=== PATIENT | female | born 1990 | race Caucasian/White ===

== ENCOUNTER → 2016-03-25 | Outpatient (CLI) | payer OTHER ==
[~2016-03-25] MED LIST: ALBU1AER9 INH; ASC400; BSP/10 PO; CALC250T8 PO; CERT200K INJ; CLC100X PO; CLIN1SOL23; CLON0.5T3 PO; CLON1TAB3 PO; DICY20TA10 PO; DIPH-416 PO; DOXY25TA; EFFSR75 PO; ELET40TA PO; FEXO1TAB46 PO; FOLIC ACID; HYDR200T5 PO; L-ME1CAP PO; LEVE250T PO; MELO15TA4 PO; MESA1CAP2 PO; MRLP17; MTHI100 SC; MULT-260 PO; OMEP40CA41 PO; ONDA4TAB4 PO; OXCA150T2 PO; PLMINSR25 INH; PRD/25 PO; PRENTAB26 PO; PROP160C PO; PTDOPS OP; PYRI1TAB30; RWSE PR; SNG10 PO; VALA1TAB31 PO; VENL150C56 PO
[2016-03-25 14:45] LABS: URINE APPEARANCE CLEAR (CLEAR); URINE BILIRUBIN NEG (NEG); URINE COLOR YELLOW; URINE NITRITE NEG (NEG); URINE SPECIFIC GRAVITY 1.003 (1.000-1.030); UROBILINOGEN NEG (NEG)
[2016-03-25 14:48] LABS: MANUAL MICROSCOPIC REQUIRED? NO; REVIEW REQ? NO
== END | disposition home or self-care (01) ==
LOC: C.LABSPEC 14:31
PROVIDERS: ATTEND Obstetrics & Gynecology
DX: R30.0 Dysuria (principal); O23.91 Unspecified genitourinary tract infection in pregnancy, first trimester; Z3A.00 Weeks of gestation of pregnancy not specified

== ENCOUNTER → 2016-04-13 | Outpatient (CLI) | payer OTHER ==
[2016-04-13 12:27] LABS: BASO % 0.1 %; BASO ABS # 0.01 K/uL (0-0.2); COMPLETE YES; EOS % 0.1 %; HEMATOCRIT 35.5 % (37-47); IG% 1.4 %; LYMPH % 17.7 %; LYMPH ABS # 1.66 K/uL (1.2-3.4); MEAN CELL VOLUME 91.5 fL (80-100); MEAN CORPUSCULAR HEMOGLOBIN 31.2 pg (25-34); MEAN CORPUSCULAR HGB CONC 34.1 g/dl (32-36); MEAN PLATELET VOLUME 10.9 fL (7.4-10.4); MONO % 4.6 %; NEUT % 76.1 %; PLATELET COUNT 161 K/uL (130-400); RED BLOOD COUNT 3.88 M/uL (4.2-5.4); WHITE BLOOD COUNT 9.37 K/uL (4.8-10.8)
[2016-04-13 13:04] LABS: GTGD 50 Grams
== END | disposition home or self-care (01) ==
LOC: C.LAB 10:27
PROVIDERS: ATTEND Obstetrics & Gynecology
DX: Z34.82 Encounter for supervision of other normal pregnancy, second trimester (principal)

== ENCOUNTER → 2016-08-17 | Outpatient (CLI) | payer OTHER ==
[~2016-08-17] MED LIST changes: -ASC400; -CLON0.5T3 PO; -DOXY25TA; -FOLIC ACID; -HYDR200T5 PO; -LEVE250T PO; -OXCA150T2 PO; -PRENTAB26 PO; -PYRI1TAB30; -VENL150C56 PO
--- NOTE | 2016-08-17 07:58 | DIAGNOSTIC IMAGING REPORT ---
ULTRASOUND RIGHT UPPER QUADRANT ABDOMEN CLINICAL HISTORY: Right upper quadrant abdominal pain. . COMPARISON STUDY: Abdominal CT dated 08/15/2014. TECHNIQUE: Real-time, grayscale, and color flow sonography of the right upper quadrant of the abdomen was performed. Images are reviewed in the transverse and longitudinal planes. FINDINGS: Liver: The liver is normal in size and echotexture. There is no intrahepatic biliary ductal dilatation. The main portal vein is patent. Gallbladder: The gallbladder is normal in appearance. No gallstones are identified. There is no gallbladder wall thickening or pericholecystic fluid. A sonographic Ellis's sign is reportedly absent. The common bile duct measures up to 0.3 cm in diameter. Pancreas: Not well visualized due to overlying bowel gas. Right kidney: Survey images of the right kidney demonstrate normal size and echotexture. There is mild right-sided hydronephrosis. Ascites: None. IMPRESSION: 1. No gallstones are identified. 2. There is mild right hydronephrosis, likely related to mass effect from the gravid uterus. Obstructing ureteral stone is considered unlikely as the patient did not have kidney stones on the [address] Electronically signed by: Brayan Whyte M.D. 08/17/2016 7:56 AM Dictated Date/Time: 08/17/2016 7:55 AM
== END | disposition home or self-care (01) ==
LOC: C.ULTRBC 07:10
PROVIDERS: ATTEND Obstetrics & Gynecology
DX: O99.89 Other specified diseases and conditions complicating pregnancy, childbirth and the puerperium (principal); R10.11 Right upper quadrant pain; Z3A.34 34 weeks gestation of pregnancy

== ENCOUNTER → 2016-09-02 | Outpatient (CLI) | payer OTHER ==
[~2016-09-02] MED LIST changes: +ASC400; +CLON0.5T3 PO; +DOXY25TA; +FOLIC ACID; +HYDR200T5 PO; +LEVE250T PO; +OXCA150T2 PO; +PRENTAB26 PO; +PYRI1TAB30; +VENL150C56 PO
== END | disposition home or self-care (01) ==
LOC: C.LABSPEC 15:04
PROVIDERS: ATTEND Obstetrics & Gynecology
DX: Z34.83 Encounter for supervision of other normal pregnancy, third trimester (principal)

== ENCOUNTER 2016-09-05 10:21 | Inpatient (IN) | payer OTHER ==
[~2016-09-05] VITALS: Ht 177.8 cm; Wt 95.5 kg
[~2016-09-05 10:21] MED LIST changes: -ASC400; -CLON0.5T3 PO; -DOXY25TA; -FOLIC ACID; -HYDR200T5 PO; -LEVE250T PO; -OXCA150T2 PO; -PRENTAB26 PO; -PYRI1TAB30; -VENL150C56 PO
[2016-09-05 12:11] VITALS: Ht 177.8 cm; Wt 95.5 kg
[2016-09-05] MEDS ORDERED: PRENTAB26 PO (12:30)
[2016-09-05] MEDS ORDERED: LEVE250T PO (12:31)
[2016-09-05] MEDS ORDERED: VENL150C56 PO (12:33)
[2016-09-05] MEDS ORDERED: FOLIC ACID (12:35)
[2016-09-05] MEDS ORDERED: LACTATED RINGER'S 1000ML 500 ML IV PRN ×2 (12:47→16:32)
[2016-09-05] MEDS ORDERED: OXYTOCIN 30 UNITS/500ML NSS IV PRN ×2 (13:00→19:45)
[2016-09-05 13:24] LABS: HEMATOCRIT 41.8 % (37-47); MEAN CELL VOLUME 90.9 fL (80-100); MEAN CORPUSCULAR HEMOGLOBIN 30.7 pg (25-34); MEAN CORPUSCULAR HGB CONC 33.7 g/dl (32-36); MEAN PLATELET VOLUME 11.3 fL (7.4-10.4); PLATELET COUNT 126 K/uL (130-400); WHITE BLOOD COUNT 13.59 K/uL (4.8-10.8)
[2016-09-05] MEDS: LACTATED RINGER'S 1000ML 1,000 ML IV SCH ×2 (14:25→16:24)
[2016-09-05] MEDS ORDERED: PYRI1TAB30 (15:18)
[2016-09-05] MEDS ORDERED: ASC400 (15:23)
[2016-09-05] MEDS ORDERED: CLON0.5T3 PO (15:25)
[2016-09-05] MEDS ORDERED: DOXY25TA (15:28)
[2016-09-05] MEDS ORDERED: OXCA150T2 PO (15:29)
[2016-09-05] MEDS ORDERED: HYDR200T5 PO (15:34)
[2016-09-05] MEDS ORDERED: BUPIVACAINE 0.25% 30 ML VIAL ONE (15:38)
[2016-09-05] MEDS ORDERED: FENTANYL 2MCG/ML ROPIV 1.25MG/ML 100ML BAG EPI ONE (15:39)
[2016-09-05] MEDS ORDERED: EpHEDrine SULFATE INJ 50 MG/ML AMP ONE (15:39)
[2016-09-05] MEDS ORDERED: FENTANYL CITRATE INJ 50 MCG/1 ML 2 ML VIAL ONE (15:39)
[2016-09-05] MEDS ORDERED: FENTANYL 2MCG/ML ROPIV 1.25MG/ML 100ML BAG EPI PRN (16:45)
[2016-09-05] MEDS ORDERED: NALOXONE HCL INJ 0.4 MG/1 ML VIAL/CARP IV PRN (16:45)
[2016-09-05] MEDS ORDERED: EpHEDrine SULFATE INJ 50 MG/ML AMP IV PRN (16:45)
[2016-09-05] MEDS ORDERED: BENZOCAINE 20% AER SPR 82.5 GM CAN EXT PRN (19:45)
[2016-09-05] MEDS ORDERED: OXYCODONE/ACETAMINOPHEN 5-325 TAB PO PRN (19:45)
[2016-09-05] MEDS ORDERED: DIPHTHERIA/TETANUS/PERTUSSIS 0.5 ML SYR/VIAL IM. ONE (19:45)
[2016-09-05] MEDS ORDERED: ACETAMINOPHEN/CODEINE 300/30MG TAB PO PRN (19:45)
[2016-09-05] MEDS ORDERED: ACETAMINOPHEN 325 MG TAB PO PRN (19:45)
[2016-09-05] MEDS ORDERED: HYDROCORTISONE ACETATE 25 MG SUPP PR PRN (19:45)
[2016-09-05] MEDS ORDERED: SUPERCREAM 0.870 % 15GM JAR EXT PRN (19:45)
[2016-09-05] MEDS ORDERED: LANOLIN OINT EXT PRN ×2 (19:45)
[2016-09-05] MEDS: IBUPROFEN 600 MG TAB PO PRN (22:25)
[2016-09-05] MEDS: DOCUSATE SODIUM 100 MG CAP PO SCH (22:29)
[2016-09-05 23:40] VITALS: BP 99/67; PULSE 73; TEMP 36.4
--- NOTE | 2016-09-05 23:41 | Anesthesia Procedure Note ---
Anesthesia Epidural Removal Nt Date & Time Sep 05, 2016 at 23:41 Notes Mental Status: alert / awake / arousable, participated in evaluation Nausea / Vomiting: adequately controlled Pain: adequately controlled Airway Patency, RR, SpO2: stable & adequate BP & HR: stable & adequate Hydration State: stable & adequate Neuraxial Anesthesia: was administered, sensory block is resolving Anesthetic Complications: no major complications apparent, pt satisfied with anesthetic care Epidural: removed without complications, with tip intact
[2016-09-05] MEDS: ACETAMINOPHEN/CODEINE 300/30MG TAB PO PRN (23:42)
[2016-09-06] MEDS: IBUPROFEN 600 MG TAB PO PRN ×6 (02:20→23:22)
[2016-09-06 03:40] VITALS: BP 101/68; PULSE 78; TEMP 36.8
[2016-09-06 07:27] LABS: HEMATOCRIT 35.9 % (37-47)
[2016-09-06 08:00] VITALS: BP 98/64; PULSE 82; TEMP 36.7
[2016-09-06] MEDS: FERROUS SULFATE 325 MG TAB PO SCH (08:21)
[2016-09-06] MEDS: PRENATAL VITAMIN TAB PO SCH (08:21)
[2016-09-06] MEDS: DOCUSATE SODIUM 100 MG CAP PO SCH ×2 (08:21→20:49)
--- NOTE | 2016-09-06 08:49 | Progress Note ---
Subjective Sep 06, 2016. Subjective conversation w/ patient Ambulation: ambulating normally Voiding: no voiding problems Passing Gas: Yes Diet Tolerance: Regular Diet Lochia: Small Feeding Type: Breast Feeding Review of Systems Constitutional: + fever Objective Vital Signs Date Time Temp Pulse Resp B/P (MAP) Pulse Ox O2 Delivery O2 Flow Rate FiO2 09/06/16 03:40 36.8 78 16 101/68 09/05/16 23:40 Room Air 09/05/16 23:40 36.4 73 18 99/67 Physical Exam General Appearance: WELL-APPEARING Abdomen: non tender Fundus: Firm, Non-Tender Extremities: no pedal edema, no calf tenderness Laboratory Results Last 24 Hours Test 09/05/16 13:01 09/06/16 06:59 White Blood Count 13.59 K/uL Red Blood Count 4.60 M/uL Hemoglobin 14.1 g/dL 12.4 g/dL Hematocrit 41.8 % 35.9 % Mean Corpuscular Volume 90.9 fL Mean Corpuscular Hemoglobin 30.7 pg Mean Corpuscular Hemoglobin Concent 33.7 g/dl RDW Standard Deviation 46.6 fL RDW Coefficient of Variation 14.1 % Platelet Count 126 K/uL Mean Platelet Volume 11.3 fL Assessment and Plan Post- Day#: 1
[2016-09-06] MEDS ORDERED: ALBUTEROL HFA 8 GM INHALER INH PRN (09:00)
[2016-09-06] MEDS ORDERED: DICYCLOMINE HCL 20 MG TAB PO PRN (09:00)
[2016-09-06] MEDS ORDERED: BUDESONIDE 0.25 MG/2 ML VIAL (PULMICORT) INH PRN (09:00)
[2016-09-06] MEDS ORDERED: ONDANSETRON 4 MG TAB PO PRN (09:00)
--- NOTE | 2016-09-06 09:04 | Newborn Progress Note ---
Delivery Note Date of Service Sep 06, 2016. Attendance at Delivery Note Delivery Type: vaginal delivery Gestation: pre-term : uncomplicated Mother's Information Group B Strep Status: negative HIV: negative Chlamydia: negative Gonorrhea: negative Maternal Anesthesia: epidural Delivery Care Resuscitation: bag/mask ventilation Additional Information: Mrs. Savannah Kaur followed in our office for care and delivery. She called the morning of admission stating she had alison rupture membranes. Her gestation at this time was 37 weeks 5 days. On admission to the hospital and rupture membranes was confirmed. She was monitored. There were one or 2 mild decelerations. Her cervical cervix was 2 cm firm and uneffaced. She was started on IV oxytocin. At approximately 4 cm dilatation she requested and received epidural for pain control. She obtained good relief. The IV Pitocin was continued. She went to full dilatation. In about 3 pushes she pushed out a live male infant. Cord was wrapped around the infant's arm. was suctioned through the mouth and the nose prior to delivery. Apgars were 5 and 8 and 10. Estimated blood loss was about 300 mL. She incurred a first-degree laceration at the time of delivery. This was repaired with a Vicryl suture. Vicryl was used to reapproximate the vaginal mucosa out to beyond the hymenal ring. A deep suture Vicryl was used to reapproximate the bulbocavernosus muscle. 2 interrupted sutures of Vicryl used to approximate the perineal body. In a running subcuticular sutures used to approximate the perineal skin edges. Following this vaginal exam revealed no hematoma formation. Her sponges in the vagina and patient her procedure well.
[2016-09-06] MEDS ORDERED: HYDROXYCHLOROQUINE SULFATE 200 MG TAB PO SCH ×2 (11:00→20:00)
[2016-09-06] MEDS: OXCARBAZEPINE 150 MG TAB PO SCH ×2 (11:03→20:48)
[2016-09-06] MEDS: MESALAMINE 400 MG CAPDR PO SCH ×2 (11:05→20:49)
[2016-09-06] MEDS: LEVETIRACETAM 500 MG TAB PO SCH ×2 (11:05→20:48)
[2016-09-06 13:10] VITALS: BP 101/65; PULSE 72; TEMP 36.4
[2016-09-06] MEDS ORDERED: NURSING VERBAL MED ORDER ONE ×2 (15:30→16:15)
[2016-09-06 15:40] VITALS: BP 109/70; PULSE 81; TEMP 36.5
[2016-09-06] MEDS ORDERED: DOCUSATE SODIUM 100 MG CAP PO SCH (20:00)
[2016-09-06] MEDS ORDERED: MONTELUKAST SOD 10 MG TAB PO SCH (20:00)
[2016-09-06] MEDS ORDERED: BISACODYL 5 MG TABEC PO SCH (20:00)
[2016-09-06] MEDS: ACETAMINOPHEN/CODEINE 300/30MG TAB PO PRN (20:48)
[2016-09-06] MEDS ORDERED: PROPRANOLOL HCL 80 MG LA CAP PO SCH (21:00)
[2016-09-06] MEDS ORDERED: FEXOFENADINE HCL 180 MG TAB PO SCH (21:00)
[2016-09-07] VITALS: BP 104/68; PULSE 78; TEMP 36.4
[2016-09-07] MEDS: IBUPROFEN 600 MG TAB PO PRN ×4 (03:38→18:19)
[2016-09-07] MEDS ORDERED: BISACODYL 10 MG SUPP PR PRN (07:00)
[2016-09-07 07:12] VITALS: BP 103/68; PULSE 84; TEMP 36.5; O2SAT 97
[2016-09-07] MEDS: FERROUS SULFATE 325 MG TAB PO SCH (07:41)
[2016-09-07] MEDS: OXCARBAZEPINE 150 MG TAB PO SCH (07:42)
[2016-09-07] MEDS: MESALAMINE 400 MG CAPDR PO SCH (07:42)
[2016-09-07] MEDS: PRENATAL VITAMIN TAB PO SCH (07:42)
[2016-09-07] MEDS: DOCUSATE SODIUM 100 MG CAP PO SCH (07:42)
[2016-09-07] MEDS: LEVETIRACETAM 500 MG TAB PO SCH (07:42)
[2016-09-07] MEDS ORDERED: VENLAFAXINE HCL XR 150 MG CAPXR PO SCH (08:00)
[2016-09-07] MEDS ORDERED: CLONAZEPAM 0.5 MG TAB PO SCH (08:00)
[2016-09-07] MEDS ORDERED: PRENATAL VITAMIN TAB PO SCH (08:00)
--- NOTE | 2016-09-07 08:39 | Progress Note ---
Subjective Sep 07, 2016. Subjective conversation w/ patient Ambulation: ambulating normally Voiding: no voiding problems Passing Gas: Yes Diet Tolerance: Regular Diet Lochia: Small Feeding Type: Breast Feeding Review of Systems Constitutional: + fever Objective Vital Signs Date Time Temp Pulse Resp B/P (MAP) Pulse Ox O2 Delivery O2 Flow Rate FiO2 09/07/16 07:12 36.5 84 20 103/68 (80) 97 Room Air 09/07/16 00:00 Room Air 09/07/16 00:00 36.4 78 16 104/68 (80) 09/06/16 15:40 Room Air 09/06/16 15:40 36.5 81 18 109/70 09/06/16 13:10 36.4 72 18 101/65 Physical Exam General Appearance: WELL-APPEARING Respiratory/Chest: lungs clear Abdomen: non tender Fundus: Firm, Non-Tender Extremities: no pedal edema, no calf tenderness Assessment and Plan Post- Day#: 2 Continue Routine Care: patient complains of episiotomy pain
--- NOTE | 2016-09-07 08:42 | Discharge Instructions ---
Discharge Instructions Date of Service Sep 07, 2016. Admission Reason for Admission: R/O Labor ruptured membranes Discharge Discharge Diagnosis / Problem: ruptured membranes Discharge Goals Goal(s): Routine recovery after delivery Activity Recommendations Activity Limitations: as noted below ACTIVITY RECOMMENDATIONS: * Gradual return to full activity over the next 2-3 weeks. * No lifting - nothing heavier than baby over the next 2-3 weeks. * Do not engage in vigorous exercise, sexual activity or sports until cleared by your physician. * Do not drive or operate any motorized equipment until cleared by your physician. * You may shower/bathe daily. DIET: Resume Previous Diet If Breast-feeding: * Increase caloric intake by 500 calories, eat 3 well balanced meals, 2 high protein snacks a day and drink 6-8 8oz. glasses of fluid per day. BREAST CARE: If you are not breast feeding: * Wear a supportive bra 24 hours a day for one to two weeks. * Avoid stimulating your breasts and nipples as much as possible during the first few weeks after delivery. * When taking a shower, have the warm water hit your back, not breasts. * When your breasts feel full, apply ice packs. Usually three to four times a day helps ease the discomfort. * Take a mild pain medication (Tylenol / Motrin) when you are uncomfortable. If breast feeding: * Use breast milk to lubricate nipples. Lansinoh cream may be used for sore nipples. You do not need to remove cream prior to breast feeding. If using a different brand of cream, check the label for directions regarding removal of cream prior to nursing. * Wear a supportive bra. * If having problems with breasts or breast feeding, call a healthcare network pricing consultant or your health care provider. OVER THE COUNTER MEDICATION: * For discomfort or pain, you may use Acetaminophen (Tylenol), Ibuprofen (Advil ), or Naproxen (Aleve) following the package directions. * For constipation you may use Colace following the package directions. SPECIAL CARE INSTRUCTIONS: * Vaginal rest (no tampons, douching, intercourse) until after doctor 's visit. * control as discussed with doctor. * Verbalizes understanding of car seat law as reviewed with patient nursing. * Car Seat hand-out given and reviewed with patient by nursing. * Shaken baby information reviewed with patient by nursing. Call you doctor if: * Temperature greater than or equal to 100.4 degrees F or 38.0 degrees C. Take your temperature twice daily for a week. * Bleeding becomes heavier than the heaviest part of your period - saturating a sanitary pad within an hour. * Passing large clots. * Bleeding has a foul smelling odor. * Signs and symptoms of phlebitis: leg pain, warm, red or swollen area on leg. * "Baby Blues" lasting longer than two weeks. ++ If you have had a and incision has increased pain, redness, swelling, presence of any drainage, or if the incision starts to open up. If you have any questions or concerns, call your health care practitioner at [phone]. FOLLOW-UP VISIT: Please call the office at to schedule a 6 week examination. . Instructions / Follow-Up Instructions / Follow-Up ACTIVITY RECOMMENDATIONS: * Gradual return to full activity over the next 2-3 weeks. * No lifting - nothing heavier than baby over the next 2-3 weeks. * Do not engage in vigorous exercise, sexual activity or sports until cleared by your physician. * Do not drive or operate any motorized equipment until cleared by your physician. * You may shower/bathe daily. DIET: Resume Previous Diet If Breast-feeding: * Increase caloric intake by 500 calories, eat 3 well balanced meals, 2 high protein snacks a day and drink 6-8 8oz. glasses of fluid per day. BREAST CARE: If you are not breast feeding: * Wear a supportive bra 24 hours a day for one to two weeks. * Avoid stimulating your breasts and nipples as much as possible during the first few weeks after delivery. * When taking a shower, have the warm water hit your back, not breasts. * When your breasts feel full, apply ice packs. Usually three to four times a day helps ease the discomfort. * Take a mild pain medication (Tylenol / Motrin) when you are uncomfortable. If breast feeding: * Use breast milk to lubricate nipples. Lansinoh cream may be used for sore nipples. You do not need to remove cream prior to breast feeding. If using a different brand of cream, check the label for directions regarding removal of cream prior to nursing. * Wear a supportive bra. * If having problems with breasts or breast feeding, call a healthcare network pricing consultant or your health care provider. OVER THE COUNTER MEDICATION: * For discomfort or pain, you may use Acetaminophen (Tylenol), Ibuprofen (Advil ), or Naproxen (Aleve) following the package directions. * For constipation you may use Colace following the package directions. SPECIAL CARE INSTRUCTIONS: * Vaginal rest (no tampons, douching, intercourse) until after doctor 's visit. * control as discussed with doctor. * Verbalizes understanding of car seat law as reviewed with patient nursing. * Car Seat hand-out given and reviewed with patient by nursing. * Shaken baby information reviewed with patient by nursing. Call you doctor if: * Temperature greater than or equal to 100.4 degrees F or 38.0 degrees C. Take your temperature twice daily for a week. * Bleeding becomes heavier than the heaviest part of your period - saturating a sanitary pad within an hour. * Passing large clots. * Bleeding has a foul smelling odor. * Signs and symptoms of phlebitis: leg pain, warm, red or swollen area on leg. * "Baby Blues" lasting longer than two weeks. ++ If you have had a and incision has increased pain, redness, swelling, presence of any drainage, or if the incision starts to open up. If you have any questions or concerns, call your health care practitioner at [phone]. FOLLOW-UP VISIT: Please call the office at to schedule a 6 week examination. Current Hospital Diet Patient's current hospital diet: Regular Diet Discharge Diet Recommended Diet: Regular Diet Pending Studies Studies pending at discharge: no Medical Emergencies . Who to Call and When: Medical Emergencies: If at any time you feel your situation is an emergency, please call 911 immediately. . Non-Emergent Contact Non-Emergency issues call your: Bistro Attendant Call Non-Emergent contact if: temperature is above 100.5 . . "Provider Documentation" section prepared by Joaquin Clark. . VTE Core Measure Inpt VTE Proph given/why not?: Treatment not indicated
[2016-09-07] MEDS: OXYCODONE/ACETAMINOPHEN 5-325 TAB PO PRN ×2 (10:18→18:20)
[2016-09-07 15:30] VITALS: BP 97/63; PULSE 68; TEMP 36.8
[2016-09-07 18:45] VITALS: BP_DIAS 63; PULSE 68; TEMP 36.8
== END 2016-09-07 18:45 | disposition home or self-care (01) | DRG 775 ==
LOC: C.OPB 10:21 → C.LD 10:22 → C.OPB 12:46 → C.LD 12:46 → C.OBG 22:11 → EDSTATUS 09-24 10:20
PROVIDERS: ADMIT Obstetrics & Gynecology; ATTEND Obstetrics & Gynecology
PROC: 0HQ9XZZ Repair Perineum Skin, External Approach (ICD-10-PCS; principal; 2016-09-06)
PROC: 10E0XZZ Delivery of Products of Conception, External Approach (ICD-10-PCS; principal; 2016-09-06)
DX: O70.0 First degree perineal laceration during delivery (principal); Z37.0 Single live birth; Z3A.37 37 weeks gestation of pregnancy

== ENCOUNTER → 2016-10-18 | Outpatient (CLI) | payer OTHER ==
[~2016-10-18] MED LIST changes: +ASC400; -CALC250T8 PO; -CERT200K INJ; -CLIN1SOL23; +CLON0.5T3 PO; -CLON1TAB3 PO; -DIPH-416 PO; +DOXY25TA; -EFFSR75 PO; -ELET40TA PO; +FOLIC ACID; +HYDR200T5 PO; -L-ME1CAP PO; +LEVE250T PO; -MELO15TA4 PO; -MESA1CAP2 PO; -MRLP17; -MTHI100 SC; -MULT-260 PO; -OMEP40CA41 PO; +OXCA150T2 PO; -PRD/25 PO; +PRENTAB26 PO; -PTDOPS OP; +PYRI1TAB30; -RWSE PR; -VALA1TAB31 PO; +VENL150C56 PO
== END | disposition home or self-care (01) ==
LOC: C.PAPS 14:41
PROVIDERS: ATTEND Obstetrics & Gynecology
DX: Z39.2 Encounter for routine postpartum follow-up (principal)

== ENCOUNTER → 2017-06-06 | Outpatient (CLI) | payer OTHER | END | disposition home or self-care (01) | LOC: C.LABSPEC 14:27 | PROVIDERS: ATTEND Obstetrics & Gynecology | DX: Z34.81 Encounter for supervision of other normal pregnancy, first trimester (principal) ==

== ENCOUNTER → 2017-09-13 | Outpatient (CLI) | payer OTHER ==
[~2017-09-13] MED LIST changes: -ASC400; -BSP/10 PO; +BUSP-8 PO; +CHOL1TAB42 PO; -CLC100X PO; -CLON0.5T3 PO; +CYAN10004 PO; -DOXY25TA; +DOXY25TA PO; -FOLIC ACID; +FOLIC ACID PO; +KLN/5 PO; -LEVE250T PO; -OXCA150T2 PO; +OXYC-90 PO; -PLMINSR25 INH; +PROM25TA9 PO; -PROP160C PO; -PYRI1TAB30; +PYRI1TAB30 PO; +RMCI IV; -SNG10 PO
== END | disposition home or self-care (01) ==
LOC: C.LABSPEC 14:52
PROVIDERS: ATTEND Obstetrics & Gynecology
DX: O23.42 Unspecified infection of urinary tract in pregnancy, second trimester (principal); O26.832 Pregnancy related renal disease, second trimester; Z3A.00 Weeks of gestation of pregnancy not specified; N20.0 Calculus of kidney

== ENCOUNTER 2018-11-18 01:04 | Inpatient (IN) ==
[2018-11-18] MEDS ORDERED: OXYTOCIN 30 UNITS/500 ML BAG IV PRN ×2 (01:29→05:11)
[2018-11-18] MEDS ORDERED: BUPIVACAINE 0.25% 30 ML VIAL ONE (01:38)
[2018-11-18] MEDS ORDERED: ePHEDrine sulfate 50 MG/ML AMP ONE (01:38)
[2018-11-18] MEDS ORDERED: fentaNYL 2MCG/ML ROPIV 1.25MG/ML 100 ML BAG EPI ONE (01:39)
[2018-11-18] MEDS ORDERED: fentaNYL citrate 100 MCG/2 ML VIAL ONE (01:39)
[2018-11-18 01:49] LABS: Hematocrit (blood only) 40.8 % (37-47); Hemoglobin 14.3 g/dL (12.0-16.0); Mean Corpuscular Hemoglobin 32.4 pg (25-34); Mean Corpuscular Volume 92.3 fL (80-100); Mean Platelet Volume 11.5 fL (7.4-10.4); Platelet Count 106 K/uL (130-400); RDW Standard Deviation 46.6 fL (36.4-46.3); Red Blood Count 4.42 M/uL (4.2-5.4); White Blood Count 12.41 K/uL (4.8-10.8)
[2018-11-18] MEDS: LACTATED RINGER'S 1,000 ML IV PRN ×2 (01:57→02:57)
--- NOTE | 2018-11-18 02:05 | Anesthesiology Consultation ---
Date of Service November 18, 2018 Assessment & Plan Chart Review Chart Review: Patient NOT seen in Pre Admission Testing and Acceptable Risk for Labor Epidural Consults Requested none ASA ASA2 Proposed Anesthesia Anesthesia Type: Labor Epidural and CSE Risk / Benefits Reviewed With: PT / POA / Parent / Guardian, Accepts Plan and Informed Consent Obtained History Height/Weight Height: 5 ft 10 in Weight: 103.419 kg Allergies Allergy/AdvReac Type Severity Reaction Status Date / Time Influenza Virus Vaccines Allergy Severe anaphylaxis Verified 11/18/18 01:32 chlorhexidine Allergy Unknown RASH Verified 11/18/18 01:32 Egg Derived Allergy Unknown ANAPHYLAXIS Verified 11/18/18 01:32 latex Allergy Unknown hives Verified 11/18/18 01:32 metronidazole Allergy Unknown hives Verified 11/18/18 01:32 Latex2 -Systemic Allergic Allergy Severe ANAPHYLAXIS Uncoded 09/09/17 15:14 Response Medications Home Medications Medication Instructions Recorded Confirmed Last Taken albuterol sulfate [ProAir HFA] 2 puff INHALATION Q6H PRN 12/25/17 11/18/18 1 Week Ago ~01/03/18 Vitamin 1 tab PO HS 01/10/18 11/18/18 11/17/18 22:00 buspirone 5 mg PO HS 11/18/18 11/18/18 11/17/18 22:00 clonazepam [Klonopin] 0.5 mg PO HS 11/18/18 11/18/18 11/17/18 22:00 hydroxychloroquine [Plaquenil] 400 mg PO HS 11/18/18 11/18/18 11/17/18 22:00 sertraline [Zoloft] 50 mg PO DAILY 11/18/18 11/18/18 11/17/18 22:00 Active Medications Generic Name Dose Route Start Last Admin Trade Name Freq PRN Reason Stop Dose Admin Lactated Ringer's 1,000 mls @ 125 mls/hr 11/18/18 01:29 11/18/18 01:57 Lr IV 11/20/18 01:28 999 mls/hr .Q8H PRN Administration L&D Protocol Protocol NPO Date Last Intake of Fluids: 11/18/18 Time Last Intake of Fluids: 01:00 Date Last Intake of Solids: 11/17/18 Time Last Intake of Solids: 18:00 Past Medical History Medical History Accessory breast in female LEFT SIDE REMOVED 2014 Anxiety Asthma Classic migraine Crohns disease Depression Herpes simplex Inflammatory arthritis [place] teeth removed 2009 Exercise / Class Metabolic Activity II 4-5 Yardwork/Stairs/Walk up hill Past Family History Family History Father Hypertension Past Surgical History Surgical History H/O right knee surgery RIGHT KNEE-2004,2009 S/P lobectomy of lung 2014-BENIGN Past Anesthesia History No Hx of Anesthesia Complications and No Family Hx of Anesthesia Complications Social History Smoking Status: Never smoker Hx Alcohol Use: No Hx Substance Use: No substance use type: does not use Review of Systems no chest pain or sob Physical Exam Vital Signs Last Vital Signs Temp 36.7 C 11/18/18 01:19 Pulse 85 11/18/18 02:03 Resp 18 11/18/18 01:19 BP 121/67 11/18/18 01:19 Pulse Ox 97 11/18/18 02:03 ENMT Mouth: no TMJ abnormality Thyromental Distance: > or= 3.5 Finger Breadths Mallampati Class: II Neck normal visual inspection Respiratory normal respiratory effort Auscultation: lungs clear to auscultation bilaterally Cardiovascular Rate/Rhythm: regular rate and regular rhythm Musculoskeletal Spine: normal cervical ROM Neurologic moves all extremities Psychiatric Orientation: alert and oriented x 3 Testing Laboratory Results 11/18/18 01:38
[2018-11-18] MEDS ORDERED: ONDANSETRON INJ 2 MG/ML 2 ML VIAL IV PRN (02:06)
[2018-11-18] MEDS ORDERED: DiphenhydrAMINE HCL 50 MG/ML VIAL IV PRN (02:06)
[2018-11-18] MEDS ORDERED: NALBUPHINE HCL INJ 10 MG/ML AMP IV PRN (02:06)
[2018-11-18] MEDS ORDERED: NALOXONE HCL 1 MG in SODIUM CHLORIDE 0.9% 1000ML 1,000 ML IV PRN (02:06)
[2018-11-18] MEDS ORDERED: ePHEDrine sulfate 50 MG/ML AMP IV PRN (02:06)
[2018-11-18] MEDS ORDERED: NALOXONE HCL 0.4 MG/1 ML VIAL/CARP IV PRN (02:06)
[2018-11-18] MEDS ORDERED: fentaNYL 2MCG/ML ROPIV 1.25MG/ML 100 ML BAG EPI PRN (02:06)
[2018-11-18] MEDS ORDERED: METHYLERGONOVINE MALEATE 0.2 MG/ML AMP ONE (04:55)
[2018-11-18] MEDS ORDERED: SUPERCREAM 0.870% 15 GM JAR EXT PRN (05:11)
[2018-11-18] MEDS ORDERED: ACETAMINOPHEN 325 MG TAB PO PRN (05:11)
[2018-11-18] MEDS ORDERED: BENZOCAINE 20% AER SPR 82.5 GM CAN EXT PRN (05:11)
[2018-11-18] MEDS ORDERED: ACETAMINOPHEN W/CODEINE #3 1 TAB PO PRN (05:11)
[2018-11-18] MEDS ORDERED: METHYLERGONOVINE MALEATE 0.2 MG/ML AMP IM ONE (05:11)
[2018-11-18] MEDS ORDERED: HYDROCORTISONE ACETATE 25 MG SUPP PR PRN (05:11)
[2018-11-18] MEDS ORDERED: bisacodyL 10 MG SUPP PR PRN (05:11)
[2018-11-18] MEDS ORDERED: OXYCODONE/ACETAMINOPHEN 5mg/325mg TAB PO PRN (05:11)
[2018-11-18] MEDS ORDERED: DIPHTHERIA/TETANUS/PERTUSSIS 0.5 ML SYR/VIAL IM ONE (05:11)
--- NOTE | 2018-11-18 05:38 | Delivery Summary ---
DATE OF OPERATION: 11/18/2018 Mrs. Kaur is a 28-year-old 4, para 3. She had 1 spontaneous AB. Her blood type is A positive, rubella immune. Vaginal beta strep negative, followed in the office for care and delivery, is well dated with an early ultrasound. Her due date is 11/30/2018. She has had no problems. She was admitted in active labor with ruptured membranes, 4 cm dilated. Soon after admission, she received epidural anesthesia, obtained good pain relief, went on to push out a live male via direct occiput posterior position over an intact perineum. After delivery of the head, there was a nuchal cord which was reduced over the head. Then, the body and shoulders were delivered without difficulty. Cord was clamped, cut by the father. Cord blood was taken. With IV Pitocin running, placenta was removed intact. Following this, she received a shot of Methergine, controlled bleeding. Inspection of the perineum revealed a first degree laceration. This was repaired anatomically. The vaginal mucosa was approximated out to beyond the hymenal ring with a running 2-0 Vicryl. A deep suture was used to approximate the bulbocavernosus muscle, deep sutures used to approximate the perineal body, then a running subcuticular suture was used to approximate the perineal skin edges. Following this, hemostasis was good. Packs were removed. Vaginal exam including rectovaginal examination revealed no hematoma formation or sponges in the vagina. I attest to the content of the Intraoperative Record and any orders documented therein. Any exception s are noted below.
[2018-11-18] MEDS: IBUPROFEN 600 MG TAB PO PRN ×4 (06:19→23:30)
--- NOTE | 2018-11-18 07:52 | Anesthesia Procedure Note ---
Date of Service November 18, 2018 Anesthesia Post Epidural Note Vital Signs Vital Signs: Temp Pulse Resp BP Pulse Ox 36.6 C 92 H 16 131/69 99 11/18/18 04:11 11/18/18 07:38 11/18/18 06:38 11/18/18 07:38 11/18/18 05:08 Notes Mental Status: alert / awake / arousable and participated in evaluation Patient Amnestic to Procedure: Yes Nausea / Vomiting: adequately controlled Pain: adequately controlled Airway Patency, RR, SpO2: stable & adequate BP & HR: stable & adequate Hydration State: stable & adequate Neuraxial Anesthesia: was administered and sensory block resolved Anesthetic Complications: no major complications apparent and Pt Satisfied with anesthetic care Epidural: Removed without complications and With tip intact
[2018-11-18] MEDS: DOCUSATE SODIUM 100 MG CAP PO SCH ×2 (08:27→21:20)
[2018-11-18] MEDS: FERROUS SULFATE 325 MG TAB PO SCH (08:27)
[2018-11-18] MEDS: PRENATAL VITAMIN 1 TAB PO SCH (08:27)
[2018-11-18] MEDS ORDERED: HYDROXYCHLOROQUINE SULFATE 200 MG TAB PO SCH (21:00)
[2018-11-18] MEDS ORDERED: clonazePAM 0.5 MG TAB PO SCH (21:00)
[2018-11-18] MEDS: SERTRALINE HCL 50 MG TABLET PO SCH ×2 (21:22→22:26)
[2018-11-19 06:27] LABS: Hematocrit (blood only) 38.2 % (37-47); Hemoglobin 12.8 g/dL (12.0-16.0); Mean Corpuscular Hemoglobin 31.4 pg (25-34); Mean Corpuscular Hgb Conc 33.5 g/dL (32-36); Mean Corpuscular Volume 93.9 fL (80-100); Mean Platelet Volume 11.5 fL (7.4-10.4); Platelet Count 100 K/uL (130-400); RDW Coefficient of Variation 14.3 % (11.5-14.5); RDW Standard Deviation 48.7 fL (36.4-46.3); Red Blood Count 4.07 M/uL (4.2-5.4); White Blood Count 9.55 K/uL (4.8-10.8)
[2018-11-19] MEDS: IBUPROFEN 600 MG TAB PO PRN (06:31)
[2018-11-19] MEDS: FERROUS SULFATE 325 MG TAB PO SCH (08:29)
[2018-11-19] MEDS: PRENATAL VITAMIN 1 TAB PO SCH (08:29)
[2018-11-19] MEDS: DOCUSATE SODIUM 100 MG CAP PO SCH (08:29)
--- NOTE | 2018-11-19 10:10 | Obstetrical Progress Note ---
Date of Service November 19, 2018 Physical Exam Physical Exam: abdomen soft and non tender vaginal bleeding scant hgb 12.8 no calf tenderness ambulating well Results & Data Vital Signs (Past 12 Hours) Vital Signs Temp Pulse Resp BP 11/19/18 08:43 36.7 C 91 H 20 111/71 11/19/18 04:15 36.7 C 70 18 112/62 11/18/18 23:30 36.6 C 72 20 109/67
[2018-11-19] MEDS ORDERED: bisacodyL 5 MG TABEC PO SCH (20:00)
== END 2018-11-19 11:31 | disposition home or self-care (01) | DRG 807 ==
LOC: OPB 01:04 → 4S1 01:08 → 4S2 08:32

== ENCOUNTER 2020-07-05 21:39 | Inpatient (IN) ==
[2020-07-05] MEDS ORDERED: OXYTOCIN 30 UNITS/500 ML BAG IV PRN (21:56)
[2020-07-05] MEDS ORDERED: BUTORPHANOL TARTRATE 1 MG/ML VIAL IV PRN (21:58)
[2020-07-05 22:19] LABS: Hematocrit (blood only) 35.4 % (37-47); Hemoglobin 11.8 g/dL (12.0-16.0); Mean Corpuscular Hemoglobin 29.1 pg (25-34); Mean Corpuscular Hgb Conc 33.3 g/dL (32-36); Mean Corpuscular Volume 87.2 fL (80-100); Mean Platelet Volume 11.9 fL (7.4-10.4); Platelet Count 118 K/uL (130-400); RDW Coefficient of Variation 14.6 % (11.5-14.5); RDW Standard Deviation 46.6 fL (36.4-46.3); Red Blood Count 4.06 M/uL (4.2-5.4); White Blood Count 6.51 K/uL (4.8-10.8)
[2020-07-05] MEDS: LACTATED RINGER'S 1,000 ML IV PRN (23:00)
[2020-07-06] MEDS ORDERED: HYDROCORTISONE 1% CRM 30 GM TUBE EXT PRN (00:43)
[2020-07-06] MEDS ORDERED: OXYTOCIN 30 UNITS/500 ML BAG IV PRN ×2 (04:26→11:23)
[2020-07-06] MEDS ORDERED: fentaNYL citrate 100 MCG/2 ML VIAL ONE (07:06)
[2020-07-06] MEDS ORDERED: BUPIVACAINE 0.25% 30 ML VIAL ONE (07:06)
[2020-07-06] MEDS ORDERED: ePHEDrine sulfate 50 MG/ML AMP ONE (07:06)
[2020-07-06] MEDS ORDERED: SODIUM CHLORIDE 0.9% INJ 10 ML VIAL ONE (07:06)
[2020-07-06] MEDS ORDERED: fentaNYL 2MCG/ML ROPIVACAINE 1.25MG/ML 100 ML BAG EPI ONE (07:06)
[2020-07-06] MEDS: LACTATED RINGER'S 1,000 ML IV PRN ×2 (07:19→08:13)
--- NOTE | 2020-07-06 07:31 | Anesthesiology Consultation ---
Date of Service July 06, 2020 Assessment & Plan (1) Encounter for pre-operative examination: Chart Review Chart Review: Acceptable Risk for Surgery Consults Requested none ASA ASA3 Proposed Anesthesia Anesthesia Type: Labor Epidural Risk / Benefits Reviewed With: PT / POA / Parent / Guardian, Accepts Plan and Informed Consent Obtained History Height/Weight Height: 5 ft 10 in Weight: 111.13 kg Allergies Allergy/AdvReac Type Severity Reaction Status Date / Time Influenza Virus Vaccines Allergy Severe Anaphylaxis Verified 07/05/20 22:11 chlorhexidine Allergy Unknown Rash Verified 07/05/20 22:11 Egg Derived Allergy Unknown Anaphylaxis Verified 07/05/20 22:11 latex Allergy Unknown Hives Verified 07/05/20 22:11 metronidazole Allergy Unknown Hives Verified 07/05/20 22:11 Medications Home Medications Medication Instructions Recorded Confirmed Last Taken albuterol sulfate [ProAir HFA] 2 puff INHALATION Q6H PRN 12/25/17 07/05/20 11/06/19 12:30 Vitamin 1 tab PO HS 01/10/18 07/05/20 07/04/20 22:00 clonazepam [Klonopin] 0.5 mg PO HS 11/18/18 07/05/20 07/04/20 22:00 hydroxychloroquine [Plaquenil] 400 mg PO HS 11/18/18 07/05/20 07/05/20 22:00 fexofenadine [Samina Allergy] 360 mg PO HS 01/17/19 07/05/20 07/04/20 22:00 montelukast [Singulair] 10 mg PO HS 01/17/19 07/05/20 07/04/20 22:00 desvenlafaxine succinate 100 mg PO HS 11/06/19 07/05/20 07/04/20 22:00 infliximab [Remicade] 100 mg IV .Q6W 11/06/19 07/05/20 06/16/20 08:00 sumatriptan succinate 50 mg PO DIRECTED PRN 11/06/19 07/05/20 Unknown dicyclomine 10 mg PO DAILY PRN 04/08/20 07/05/20 Unknown promethazine 25 mg PO Q8H PRN 04/08/20 07/05/20 Unknown sumatriptan succinate 6 mg SUBCUT DIRECTED PRN 04/08/20 07/05/20 Unknown fidaxomicin [Dificid] 200 mg PO BID 07/05/20 07/05/20 07/04/20 22:00 Active Medications Generic Name Dose Route Start Last Admin Trade Name Freq PRN Reason Stop Dose Admin Butorphanol Tartrate 1 mg 07/05/20 21:58 07/06/20 01:57 Butorphanol Tartrate 1 Mg/Ml Vial IV 08/04/20 21:57 1 mg Q2HWA PRN Administration Pain Hydrocortisone 1 appln 07/06/20 00:43 07/06/20 01:57 Hydrocortisone 1% Crm 30 Gm Tube EXT 08/05/20 00:42 1 appln DAILY PRN Administration Itching Lactated Ringer's 1,000 mls @ 125 mls/hr 07/05/20 21:56 07/06/20 08:13 Lr IV 07/07/20 21:55 125 mls/hr .Q8H PRN Administration L&D Protocol Protocol Oxytocin 30 units in 500 mls @ 8 mls/hr 07/06/20 04:26 07/06/20 06:55 Pitocin IV 07/08/20 04:25 0.48 units/hr .Q24H PRN 8 mls/hr Labor Induction/Augmentation Titration Protocol 0.48 UNITS/HR NPO Date Last Intake of Fluids: 07/06/20 Time Last Intake of Fluids: 08:49 Date Last Intake of Solids: 07/05/20 Time Last Intake of Solids: 23:59 Past Medical History Medical History Accessory breast in female LEFT SIDE REMOVED 2014 Anxiety Asthma Classic migraine Crohns disease Depression Herpes simplex Inflammatory arthritis Exercise / Class Metabolic Activity III < 4 Walking/Shop/Light housework Past Family History Family History Father Hypertension Past Surgical History Surgical History H/O right knee surgery RIGHT KNEE-2003,2009 History of dilation and curettage S/P lobectomy of lung 2013-BENIGN [place] teeth removed 2009 Past Anesthesia History No Hx of Anesthesia Complications History of PONV No Hx of PONV Social History Smoking Status: Never smoker Hx Alcohol Use: Yes Alcohol type: wine alcohol intake frequency: a few times a month Hx Substance Use: No substance use type: does not use Review of Systems Patient denies numbness, tingling or weakness in lower extremities. Patient denies history of abnormal bleeding or bleeding disorder. Patient denies active use of anticoagulants other than low dose aspirin. Negative for chest pain or shortness of breath. Physical Exam Vital Signs Last Vital Signs Temp 36.6 C 07/06/20 07:30 Pulse 95 H 07/06/20 08:47 Resp 20 07/06/20 07:30 BP 119/72 07/06/20 08:47 Pulse Ox 99 07/06/20 08:47 ENMT Mouth: no TMJ abnormality and oral opening not small Thyromental Distance: > or= 3.5 Finger Breadths Mallampati Class: II Neck normal visual inspection; neck extension not limited Respiratory normal respiratory effort Cardiovascular Rate/Rhythm: regular rate and regular rhythm Neurologic moves all extremities Psychiatric Orientation: alert and oriented x 3 Testing Laboratory Results 07/05/20 22:06
[2020-07-06] MEDS ORDERED: fentaNYL 2MCG/ML ROPIVACAINE 1.25MG/ML 100 ML BAG EPI PRN (08:52)
[2020-07-06] MEDS ORDERED: ONDANSETRON INJ 2 MG/ML 2 ML VIAL IV PRN (08:52)
[2020-07-06] MEDS ORDERED: NALOXONE HCL 0.4 MG/1 ML VIAL/CARP IV PRN (08:52)
[2020-07-06] MEDS ORDERED: diphenhydrAMINE 50 MG/ML VIAL IV PRN (08:52)
[2020-07-06] MEDS ORDERED: NALOXONE HCL 1 MG in SODIUM CHLORIDE 0.9% 1000ML 1,000 ML IV PRN (08:52)
[2020-07-06] MEDS ORDERED: ePHEDrine sulfate 50 MG/ML AMP IV PRN (08:52)
[2020-07-06] MEDS ORDERED: METHYLERGONOVINE MALEATE 0.2 MG/ML AMP ONE (11:09)
[2020-07-06] MEDS ORDERED: ACETAMINOPHEN 325 MG TAB PO PRN (11:23)
[2020-07-06] MEDS ORDERED: oxyCODONE/ACETAMINOPHEN 5mg/325mg TAB PO PRN (11:23)
[2020-07-06] MEDS ORDERED: HYDROCORTISONE ACETATE 25 MG SUPP PR PRN (11:23)
[2020-07-06] MEDS ORDERED: bisacodyL 10 MG SUPP PR PRN (11:23)
[2020-07-06] MEDS ORDERED: BENZOCAINE 20% AER SPR 82.5 GM CAN EXT PRN (11:23)
[2020-07-06] MEDS ORDERED: ACETAMINOPHEN W/CODEINE #3 1 TAB PO PRN (11:23)
[2020-07-06] MEDS ORDERED: METHYLERGONOVINE MALEATE 0.2 MG/ML AMP IM ONE (11:23)
[2020-07-06] MEDS ORDERED: SUPERCREAM 0.870% 15 GM JAR EXT PRN (11:23)
[2020-07-06] MEDS ORDERED: DIPHTHERIA/TETANUS/PERTUSSIS 0.5 ML SYR/VIAL IM ONE (11:23)
--- NOTE | 2020-07-06 12:17 | Anesthesia Procedure Note ---
Date of Service July 06, 2020 Anesthesia Post Epidural Note Vital Signs Vital Signs: Temp Pulse Resp BP Pulse Ox 36.4 C L 75 18 127/79 97 07/06/20 11:20 07/06/20 12:06 07/06/20 11:36 07/06/20 12:06 07/06/20 11:07 Notes Mental Status: alert / awake / arousable and participated in evaluation Nausea / Vomiting: adequately controlled Pain: adequately controlled Airway Patency, RR, SpO2: stable & adequate BP & HR: stable & adequate Hydration State: stable & adequate Neuraxial Anesthesia: was administered and sensory block is resolving Anesthetic Complications: no major complications apparent and Pt Satisfied with anesthetic care Epidural: Removed without complications and With tip intact Notes: Epidural site clean, dry and intact. No signs of edema, erythema or bruising at insertion site. Pt instructed to request anesthesia if she has residual lower extremity numbness or if she develops lower extremity pain or weakness, back pain or headache.
[2020-07-06] MEDS ORDERED: clonazePAM 0.5 MG TAB PO PRN (12:29)
[2020-07-06] MEDS: IBUPROFEN 600 MG TAB PO PRN ×3 (12:35→21:37)
--- NOTE | 2020-07-06 13:47 | Delivery Summary ---
DATE OF OPERATION: 07/06/2020 The patient is a 5, para 4, 1 spontaneous AB. Blood type is A positive, group B strep negative. course; she did have problems with C. diff, is being treated at the present time. A couple times she went into premature labor, but stopped. She was admitted in spontaneous labor at 39 weeks and 2 days. Her contractions faded after she got here, her cervix was about 4+ cm and she was eventually started on IV Pitocin. She developed good regular labor pattern on the IV Pitocin. Membranes were ruptured surgically. Fluid was clear. She then requested and received epidural with good pain relief. Then the Pitocin was continued. The dose was continued to be increased. She went to full dilatation, pushed out a live male via direct occiput anterior position over an intact perineum. Infant was suctioned through the mouth and the nose after delivery of the head, shoulders were then delivered without difficulty. Cord was allowed to pulse for 1 minute, then clamped and cut by the father. Cord blood was taken. With IV Pitocin turned up and IM Methergine given the placenta was removed intact. Inspection of the perineum revealed a first-degree laceration. This was repaired anatomically. Deep suture was first used to approximate the bulbocavernosus muscle, separate deep suture was used to approximate the perineal body. The vaginal mucosa was approximated with a running suture out and to beyond the hymenal ring and then the perineal skin edges were approximated with a running Vicryl suture. Following this, hemostasis was good. Uterus had contracted nicely. All sponges were removed. The patient tolerated the procedure well. Estimated blood loss was 200 mL. I attest to the content of the Intraoperative Record and any orders documented therein. Any exception s are noted below.
[2020-07-06] MEDS: FIDAXOMICIN 200 MG TAB PO SCH ×2 (14:03→20:13)
[2020-07-06] MEDS: DOCUSATE SODIUM 100 MG CAP PO SCH (20:13)
[2020-07-06] MEDS ORDERED: HYDROXYCHLOROQUINE SULFATE 200 MG TAB PO SCH (21:00)
[2020-07-06] MEDS ORDERED: FEXOFENADINE HCL 180 MG TAB PO SCH (21:00)
[2020-07-06] MEDS ORDERED: MONTELUKAST SODIUM 10 MG TABLET PO SCH (21:00)
[2020-07-06] MEDS ORDERED: DESVENLAFAXINE SUCCINATE PO SCH (21:00)
[2020-07-07] MEDS: IBUPROFEN 600 MG TAB PO PRN ×2 (03:31→08:13)
[2020-07-07 07:43] LABS: Hematocrit (blood only) 34.2 % (37-47); Mean Corpuscular Hemoglobin 28.4 pg (25-34); Mean Corpuscular Hgb Conc 32.2 g/dL (32-36); Mean Corpuscular Volume 88.4 fL (80-100); Mean Platelet Volume 12.4 fL (7.4-10.4); Platelet Count 110 K/uL (130-400); Platelet Estimate Decreased (Normal); RDW Coefficient of Variation 14.9 % (11.5-14.5); RDW Standard Deviation 47.8 fL (36.4-46.3); Red Blood Count 3.87 M/uL (4.2-5.4)
[2020-07-07] MEDS ORDERED: PRENATAL VITAMIN 1 TAB PO SCH (08:00)
[2020-07-07] MEDS: DOCUSATE SODIUM 100 MG CAP PO SCH (08:13)
[2020-07-07] MEDS: FIDAXOMICIN 200 MG TAB PO SCH (08:14)
--- NOTE | 2020-07-07 09:22 | Obstetrical Progress Note ---
Date of Service July 07, 2020 Assessment & Plan Admission and Anticipated Discharge Date Admission Date: July 05, 2020 Physical Exam Physical Exam: abdomen soft and non tender no calf tenderness ambulating well vaginal bleeding scant hgb 11.0 Results & Data ([facility]) Vital Signs (Past 12 Hours) Vital Signs Temp Pulse Resp BP Pulse Ox 07/07/20 03:30 36.6 C 77 18 133/85 96 07/06/20 23:35 36.5 C 80 18 126/75 97
[2020-07-07] MEDS ORDERED: bisacodyL 5 MG TABEC PO SCH (20:00)
== END 2020-07-07 13:50 | disposition home or self-care (01) | DRG 806 ==
LOC: OPB 21:39 → 4S1 21:40 → 4N 07-06 13:30

== ENCOUNTER 2021-08-01 10:54 | Inpatient (IN) ==
[2021-08-01] MEDS ORDERED: METOCLOPRAMIDE HCL INJ 5 MG/ML 2 ML VIAL IV STA (11:32)
[2021-08-01] MEDS ORDERED: MoRPHine SULFATE 4 MG/ML 1 ML CARP\\VIAL IV STA ×2 (11:32→13:34)
[2021-08-01] MEDS ORDERED: diphenhydrAMINE 50 MG/ML VIAL ONE (11:55)
[2021-08-01 11:57] LABS: Basophils # (auto) 0.01 K/uL (0-0.2); Basophils % (auto) 0.1 %; Eosinophils # (auto) 0.06 K/uL (0-0.5); Eosinophils % (auto) 0.4 %; Hematocrit (blood only) 42.1 % (37-47); Hemoglobin 14.1 g/dL (12.0-16.0); Immature Granulocytes # (auto) 0.05 K/uL (0.00-0.02); Immature Granulocytes % (auto) 0.3 %; Lymphocytes # (auto) 1.23 K/uL (1.2-3.4); Lymphocytes % (auto) 8.3 %; Mean Corpuscular Hemoglobin 30.5 pg (25-34); Mean Corpuscular Hgb Conc 33.5 g/dL (32-36); Mean Corpuscular Volume 90.9 fL (80-100); Mean Platelet Volume 10.8 fL (7.4-10.4); Monocytes # (auto) 0.66 K/uL (0.11-0.59); Monocytes % (auto) 4.4 %; Neutrophils # (auto) 12.83 K/uL (1.4-6.5); Neutrophils % (auto) 86.5 %; Platelet Count 181 K/uL (130-400); RDW Coefficient of Variation 13.9 % (11.5-14.5); RDW Standard Deviation 45.8 fL (36.4-46.3); Red Blood Count 4.63 M/uL (4.2-5.4); White Blood Count 14.84 K/uL (4.8-10.8)
[2021-08-01 12:03] LABS: Appearance Urine Clear (Clear); Bilirubin Urine Negative (Negative); Blood Urine Negative (Negative); Color Urine Yellow; Glucose Urine UA Negative (Negative); Ketones Urine Negative (Negative); Leukocyte Esterase Urine Negative (Negative); Nitrite Urine Negative (Negative); Protein Urine Negative (Negative); Specific Gravity Urine 1.019 (1.000-1.030); Urobilinogen Urine Negative (Negative); pH Urine 5.5 (4.5-7.5)
[2021-08-01 12:13] LABS: Albumin Globulin Ratio 1.4 (0.9-2); Albumin Level 4.3 gm/dl (3.4-5.0); BUN Creatinine Ratio 25.3 (10-20); Bilirubin,Total 0.6 mg/dl (0.2-1.0); Calcium 9.4 mg/dl (8.5-10.1); Est GFR (African American) 123.1 ml/min; Est GFR (Non-African American) 106.2 ml/min; Total Protein 7.3 gm/dl (6.0-8.3)
[2021-08-01 12:25] LABS: Pregnancy Test, Serum Negative (Negative)
[2021-08-01] MEDS ORDERED: OPTIRAY 320 100ml IV ONE (12:30)
--- NOTE | 2021-08-01 13:02 | CT Scan Report ---
CT abd pelvis IV con only CLINICAL HISTORY: RLQ abd pain, r/o appy TECHNIQUE: Helical axial images of the abdomen and pelvis were obtained and displayed. Automated dose lowering techniques and/or adjustment according to patient size were utilized for this exam. This e xam was performed with intravenous contrast. CT DOSE: 585.21 mGy.cm COMPARISON: Comparison is made to CT abdomen pelvis 08/15/2014 FINDINGS: Lower chest: Bibasilar atelectasis versus scarring is seen. Liver: Hepatic steatosis is noted. Gallbladder and biliary tree: No calcified gallstones. Normal caliber wall. No intra- or extrahepatic biliary ductal dilation. Pancreas: Unremarkable, no focal lesions. Spleen: Unremarkable. Adrenals: Unremarkable. Kidneys and ureters: Unremarkable. Bladder: Unremarkable. Reproductive organs: Unremarkable. Bowel: Unremarkable appearance of the bowel. The appendix is normal. Lymph nodes Retroperitoneal: Unremarkable. Mesenteric: Unremarkable. Pelvic: Unremarkable. Peritoneum: Normal. Vessels: Unremarkable. Abdominal wall: Unremarkable. Bones: Degenerative changes in the visualized spine. IMPRESSION: No acute abnormalities and in particular no evidence of appendicitis. ACT 112: Negative or not required by law. Electronically signed by: Jesús Billingsley M.D. 08/01/2021 12:59 PM
--- NOTE | 2021-08-01 14:56 | Ultrasound Report ---
US pelvic complete CLINICAL HISTORY: RLQ abdominal pain TECHNIQUE: Real-time sonographic images of the pelvic contents were obtained with transabdominal and transvaginal technique. Comparison: None available at the time of this dictation. FINDINGS: The uterus measures 8.0 x 6.9 x 5.0 cm. The endometrial cavity echo stripe measures 0.7 cm in thickne ss. Multiple nabothian cysts are seen. The right ovary measures 3.2 x 2.4 x 2.0 cm. The left ovary measures 3.9 x 1.8 x 1.6 cm. Normal appea dawn of the ovaries bilaterally. Doppler flow is seen bilaterally. There was no fluid in the cul-de-sac. IMPRESSION: Normal transvaginal pelvic ultrasound. ACT 112: Negative or not required by law. Electronically signed by: Jesús Billingsley M.D. 08/01/2021 2:54 PM
--- NOTE | 2021-08-01 15:14 | Emergency Department Note ---
History of Present Illness General Chief complaint: Abdominal Pain Stated complaint: RT LOWER ABD PAIN INTO MID ABD Time Seen by Provider: 08/01/21 10:57 History of Present Illness Maximum Pain Intensity: 7 31-year-old female presents today for evaluation of right lower quadrant pain that developed this morning. She states she had periumbilical pain that woke her from sleep around 4:30 AM. It migrated to the right lower quadrant. She has had some nausea but no vomiting. She denies any fevers . She has had sweats and chills. She attempted to go to work today but the pain became too severe. She did premedicate herself with some Zofran 4 mg at home and then another dose of 8 mg while at work. She still has some nausea. She denies any abdominal trauma. Patient states she is currently on day 5 of her menstrual period. She states her menstrual cramps are never this bad. She denies any flank pain. No chest pain or shortness of breath. No previous abdominal surgeries. She still has her appendix and gallbladder. Patient does have a history of Crohn's, but has never had a flare with this much pain. Home Medications Medication Instructions Recorded Confirmed Type clonazepam 0.5 mg tablet (Klonopin) 0.25 mg PO HS PRN 11/18/18 08/01/21 History fexofenadine 180 mg tablet 180 mg PO HS 01/17/19 08/01/21 History (Samina Allergy) montelukast 10 mg tablet 10 mg PO HS 01/17/19 08/01/21 History (Singulair) desvenlafaxine succinate 100 mg 100 mg PO HS 11/06/19 08/01/21 History tablet,extended release 24 hr sumatriptan succinate 50 mg tablet 50 mg PO DAILY PRN 11/06/19 08/01/21 History dicyclomine 10 mg capsule 10 mg PO TID PRN 04/08/20 08/01/21 History promethazine 25 mg tablet 25 mg PO Q8H PRN 04/08/20 08/01/21 History sumatriptan succinate 6 mg/0.5 mL 6 mg SUBCUT DIRECTED PRN 04/08/20 08/01/21 History subcutaneous pen injector infliximab-axxq 100 mg intravenous 870 mg IV [id number] 08/01/21 08/01/21 History solution (Avsola) ondansetron HCl 4 mg tablet 4 mg PO Q8H PRN 08/01/21 08/01/21 History topiramate 50 mg tablet 50 mg PO HS 08/01/21 08/01/21 History verapamil 120 mg tablet,extended 120 mg PO HS 08/01/21 08/01/21 History release Allergies Allergy/AdvReac Type Severity Reaction Status Date / Time Egg Derived Allergy Severe Anaphylaxis Verified 03/05/21 19:09 Influenza Virus Vaccines Allergy Severe Anaphylaxis Verified 03/05/21 19:09 Iodinated Contrast Media Allergy Intermediate Hives Verified 08/01/21 16:57 latex Allergy Intermediate Hives Verified 03/05/21 19:09 metronidazole Allergy Intermediate Hives Verified 03/05/21 19:09 chlorhexidine Allergy Mild Rash Verified 03/05/21 19:09 MRI CONTRAST DYE Allergy Intermediate RASH ALL Uncoded 03/05/21 19:09 OVER Past Med/Surg History Medical History (Updated 08/05/21 @ 05:44 by Justo Irwin PA-C) Accessory breast in female LEFT SIDE REMOVED 2014 Anxiety Asthma C. difficile diarrhea Classic migraine Crohns disease Depression Hepatic steatosis Herpes simplex Inappropriate sinus tachycardia Inflammatory arthritis Surgical History H/O right knee surgery RIGHT KNEE-[id number],2009 History of dilation and curettage S/P lobectomy of lung 2013-[facility] teeth removed 2009 Family History Father Hypertension Social History Smoking Status: Never smoker Second Hand Exposure: No; Hx Alcohol Use: Yes Alcohol type: hard liquor Hx Substance Use: No Preferred Language: [place]an Communication Ability: Effective Cloth Spreader Screen Printing Required: No Beliefs That Will Affect Care: None marital status: Current Living Situation: Family Other Information That Helps Us Care for You: No Feels Safe at Home: Yes Safety Concerns: Feels Safe At This Time Assistive Devices: None Review of Systems A total of 10 systems reviewed and were otherwise negative Physical Exam Vital Signs Vital Signs - 24 hr 08/01/21 10:56 08/01/21 11:43 08/01/21 13:07 Temperature 36.2 C L Temperature Source Temporal Artery Scan Pulse Rate 90 Pulse Rate [Right Finger] 91 H 90 Respiratory Rate 18 20 18 Respiratory Effort / Characteristics Non-Labored Non-Labored Non-Labored Respiratory Depth Normal Normal Normal Blood Pressure 106/72 Blood Pressure [Left Arm] 127/76 129/79 Blood Pressure Mean 83 Blood Pressure Mean [Left Arm] 93 95 Blood Pressure Position [Left Arm] Pulse Oximetry 99 100 100 Oxygen Delivery Method Room Air Room Air Sepsis Recent Fever Within 48 Hours No Sepsis New/Unexplained Change in Mental Status No Sepsis Action Taken by Nursing No Action Required 08/01/21 15:02 Temperature Temperature Source Pulse Rate Pulse Rate [Right Finger] 86 Respiratory Rate 20 Respiratory Effort / Characteristics Non-Labored Respiratory Depth Normal Blood Pressure Blood Pressure [Left Arm] 120/77 Blood Pressure Mean Blood Pressure Mean [Left Arm] 91 Blood Pressure Position [Left Arm] Sitting Pulse Oximetry 100 Oxygen Delivery Method Sepsis Recent Fever Within 48 Hours Sepsis New/Unexplained Change in Mental Status Sepsis Action Taken by Nursing General: Well-developed, well-nourished, young white female, in obvious discomfort. Severe abdominal pain. Alert and oriented. Conversive. Skin: Warm and dry with good turgor. No rashes or lesions. No ecchymosis or erythema. The patient is not diaphoretic. No abrasions. HEENT: Normocephalic atraumatic. Eyes PERRLA, EOMI. No conjunctiva or scleral injection. Ears TMs intact bilaterally with good light reflexes. No erythema or bulging. No hemotympanum. Canals are patent. Nares patent bilaterally without turbinate enlargement. No significant drainage. No epistaxis. Oropharynx without erythema or exudate. Uvula midline, oral mucosa moist. No lesions present. Heart: Heart RRR. No MGR. Peripheral pulses are 2+. Lungs: Lungs are clear to auscultation. No crackles rhonchi or wheezing. Good air movement. The patient is able to take a deep breath. Abdomen: Abdomen was inspected, auscultated, and palpated. Mildly obese. Bowel sounds present x 4, but infrequent. Soft, significant right lower quadrant tenderness to palpation. No hepato-splenomegaly. No masses noted. Positive rebound, negative Ellis sign. There is pain over McBurney's point. No CVA tenderness. Musculoskeletal: Gross motor function of the upper and lower extremities is intact and unremarkable. Neurologic: Gross sensation is intact across the upper and lower extremities by soft touch. Course Administered Medications Acetaminophen (Acetaminophen 325 Mg Tab) 650 mg PO Q4H PRN PRN Reason: pain/fever Stop: 08/31/21 18:36 Last Admin: 08/04/21 20:41 Dose: 650 mg Documented by: [id number] Admin: 08/04/21 13:12 Dose: 650 mg Documented by: [id number] Admin: 08/03/21 23:48 Dose: 650 mg Documented by: [id number] Admin: 08/03/21 02:10 Dose: 650 mg Documented by: [id number] Admin: 08/02/21 20:00 Dose: 650 mg Documented by: [id number] Clonazepam (Clonazepam 0.25 Mg Tab) 0.25 mg PO HS PRN PRN Reason: Anxiety Stop: 08/31/21 18:36 Last Admin: 08/04/21 20:42 Dose: 0.25 mg Documented by: [id number] Admin: 08/03/21 23:48 Dose: 0.25 mg Documented by: [id number] Desvenlafaxine Succinate (Desvenlafaxine Succinate Er Tablet) 1 tab PO HS [facility] Stop: 09/01/21 20:59 Last Admin: 08/04/21 20:30 Dose: 1 tab Documented by: [id number] Admin: 08/03/21 20:37 Dose: 1 tab Documented by: [id number] Admin: 08/02/21 20:08 Dose: 1 tab Documented by: [id number] Fexofenadine HCl (Fexofenadine Hcl 180 Mg Tab) 180 mg PO HS BRIANA Stop: 08/31/21 20:59 Last Admin: 08/04/21 20:30 Dose: 180 mg Documented by: [id number] Admin: 08/03/21 20:35 Dose: 180 mg Documented by: [id number] Admin: 08/02/21 20:09 Dose: 180 mg Documented by: [id number] Admin: 08/01/21 22:03 Dose: 180 mg Documented by: [id number] Sodium Chloride (Nss 1000ml) 1,000 mls @ 80 mls/hr IV .[id number] BRIANA Stop: 08/31/21 18:36 Last Infusion: 08/05/21 02:20 Dose: 80 mls/hr Documented by: [id number] Infusion: 08/05/21 02:02 Dose: 0 mls/hr Documented by: [id number] Admin: 08/04/21 20:24 Dose: 80 mls/hr Documented by: [id number] Infusion: 08/04/21 20:01 Dose: 80 mls/hr Documented by: [id number] Infusion: 08/04/21 13:12 Dose: 80 mls/hr Documented by: [id number] Infusion: 08/04/21 11:51 Dose: 0 mls/hr Documented by: [id number] Admin: 08/04/21 06:10 Dose: 80 mls/hr Documented by: [id number] Infusion: 08/04/21 06:10 Dose: 80 mls/hr Documented by: [id number] Admin: 08/03/21 19:20 Dose: 80 mls/hr Documented by: [id number] Infusion: 08/03/21 18:51 Dose: 80 mls/hr Documented by: [id number] Infusion: 08/03/21 13:30 Dose: 80 mls/hr Documented by: [id number] Infusion: 08/03/21 12:54 Dose: 0 mls/hr Documented by: [id number] Admin: 08/03/21 05:45 Dose: 80 mls/hr Documented by: [id number] Infusion: 08/03/21 05:45 Dose: 80 mls/hr Documented by: [id number] Admin: 08/02/21 19:21 Dose: 80 mls/hr Documented by: [id number] Infusion: 08/02/21 19:21 Dose: 80 mls/hr Documented by: [id number] Admin: 08/02/21 07:20 Dose: 80 mls/hr Documented by: [id number] Infusion: 08/02/21 07:20 Dose: 80 mls/hr Documented by: [id number] Admin: 08/01/21 19:16 Dose: 80 mls/hr Documented by: [id number] Piperacillin Sod/Tazobactam (Sod 3.375 gm/ Dextrose) 115 mls @ 28.75 mls/hr IV Q8H [facility]; Protocol Stop: 08/12/21 20:59 Last Infusion: 08/05/21 05:59 Dose: 0 mls/hr Documented by: [id number] Infusion: 08/05/21 02:20 Dose: 28.8 mls/hr Documented by: [id number] Infusion: 08/05/21 02:02 Dose: 0 mls/hr Documented by: [id number] Admin: 08/05/21 01:45 Dose: 28.8 mls/hr Documented by: [id number] Infusion: 08/04/21 22:22 Dose: 0 mls/hr Documented by: [id number] Admin: 08/04/21 18:25 Dose: 28.8 mls/hr Documented by: [id number] Infusion: 08/04/21 15:55 Dose: 0 mls/hr Documented by: [id number] Infusion: 08/04/21 13:11 Dose: 28.8 mls/hr Documented by: [id number] Infusion: 08/04/21 11:51 Dose: 0 mls/hr Documented by: [id number] Admin: 08/04/21 10:22 Dose: 28.8 mls/hr Documented by: [id number] Infusion: 08/04/21 06:21 Dose: 0 mls/hr Documented by: [id number] Admin: 08/04/21 02:16 Dose: 28.8 mls/hr Documented by: [id number] Infusion: 08/03/21 22:22 Dose: 0 mls/hr Documented by: [id number] Admin: 08/03/21 18:06 Dose: 28.8 mls/hr Documented by: [id number] Infusion: 08/03/21 12:53 Dose: 0 mls/hr Documented by: [id number] Admin: 08/03/21 08:52 Dose: 28.8 mls/hr Documented by: [id number] Infusion: 08/03/21 06:08 Dose: 0 mls/hr Documented by: [id number] Admin: 08/03/21 02:07 Dose: 28.8 mls/hr Documented by: [id number] Montelukast Sodium (Montelukast Sodium 10 Mg Tablet) 10 mg PO HS BRIANA Stop: 08/31/21 20:59 Last Admin: 08/04/21 20:30 Dose: 10 mg Documented by: [id number] Admin: 08/03/21 20:36 Dose: 10 mg Documented by: [id number] Admin: 08/02/21 20:09 Dose: 10 mg Documented by: [id number] Admin: 08/01/21 22:02 Dose: 10 mg Documented by: [id number] Morphine Sulfate (Morphine Sulfate 2 Mg/Ml Carp) 2 mg IV Q4H PRN PRN Reason: Pain (6,7,8,9,10) Stop: 08/15/21 18:52 Last Admin: 08/02/21 18:56 Dose: 2 mg Documented by: [id number] Admin: 08/01/21 19:16 Dose: 2 mg Documented by: [id number] Ondansetron HCl (Ondansetron Inj 2 Mg/Ml 2 Ml Vial) 4 mg IV Q6H PRN PRN Reason: Nausea And Vomiting Stop: 08/31/21 18:36 Last Admin: 08/04/21 10:22 Dose: 4 mg Documented by: [id number] Admin: 08/02/21 18:56 Dose: 4 mg Documented by: [id number] Admin: 08/01/21 19:16 Dose: 4 mg Documented by: [id number] Verapamil HCl (Verapamil Hcl 120 Mg Tabcr) 120 mg PO HS BRIANA Stop: 08/31/21 20:59 Last Admin: 08/04/21 20:30 Dose: 120 mg Documented by: [id number] Admin: 08/03/21 20:36 Dose: 120 mg Documented by: [id number] Admin: 08/02/21 20:10 Dose: 120 mg Documented by: [id number] Admin: 08/01/21 21:58 Dose: 120 mg Documented by: [id number] Discontinued Medications Diphenhydramine HCl (Diphenhydramine 50 Mg/Ml Vial) 50 mg IV ONE ONE Stop: 08/01/21 15:38 Last Admin: 08/01/21 11:56 Dose: 50 mg Documented by: [id number] Diphenhydramine HCl (Diphenhydramine 50 Mg/Ml Vial) Confirm Administered Dose 50 mg .ROUTE .STK-MED ONE Stop: 08/01/21 11:56 Last Admin: 08/01/21 11:57 Dose: Not Given Documented by: [id number] Diphenhydramine HCl (Diphenhydramine 50 Mg/Ml Vial) 50 mg IV NOW STA Stop: 08/02/21 21:20 Last Admin: 08/02/21 21:42 Dose: 50 mg Documented by: [id number] Gadobutrol (Gadobutrol 65ml Vial) 9 ml IV ONCE ONE Stop: 08/04/21 13:00 Last Admin: 08/04/21 13:01 Dose: 9 ml Documented by: [id number] Glucagon (Glucagon For Inj 1 Mg Vial) Confirm Administered Dose 1 mg .ROUTE .STK-MED ONE Stop: 08/04/21 12:06 Last Admin: 08/04/21 12:24 Dose: 1 mg Documented by: [id number] Glucagon (Glucagon For Inj 1 Mg Vial) 1 mg IM ONE ONE Stop: 08/04/21 12:08 Last Admin: 08/04/21 13:51 Dose: Not Given Documented by: [id number] Sodium Chloride (Nss) 500 mls @ 500 mls/hr IV .Q1H BRIANA Stop: 08/02/21 07:14 Last Infusion: 08/02/21 07:19 Dose: 0 mls/hr Documented by: [id number] Admin: 08/02/21 06:13 Dose: 500 mls/hr Documented by: [id number] Piperacillin Sod/Tazobactam (Sod 3.375 gm/ Dextrose) 115 mls @ 230 mls/hr IV 2100 ONE; Protocol Stop: 08/02/21 21:29 Last Infusion: 08/02/21 21:38 Dose: 0 mls/hr Documented by: [id number] Admin: 08/02/21 21:08 Dose: 230 mls/hr Documented by: [id number] Methylprednisolone 50 mg/ (Syringe) 0.8 mls @ 1.5 mls/min IV ONE ONE Stop: 08/02/21 21:20 Last Admin: 08/02/21 21:42 Dose: 1.5 mls/min Documented by: [id number] Methylprednisolone 50 mg/ (Syringe) 0.8 mls @ 1.5 mls/min IV TODAY@0500 BRIANA Stop: 08/04/21 22:00 Last Admin: 08/04/21 06:10 Dose: 1.5 mls/min Documented by: [id number] Methylprednisolone 40 mg/ (Syringe) 0.64 mls @ 1.5 mls/min IV NOW STA Stop: 08/04/21 08:47 Last Admin: 08/04/21 10:58 Dose: 1.5 mls/min Documented by: [id number] Ioversol (Optiray 320 100ml) 95 ml IV ONCE ONE Stop: 08/01/21 12:31 Last Admin: 08/01/21 12:32 Dose: 95 ml Documented by: [id number] Ioversol (Optiray 320 100ml) 95 ml IV ONCE ONE Stop: 08/02/21 22:15 Last Admin: 08/02/21 22:15 Dose: 95 ml Documented by: [id number] Ketorolac Tromethamine (Ketorolac 30 Mg/Ml Vial) 30 mg IV NOW ONE Stop: 08/01/21 15:26 Last Admin: 08/01/21 15:30 Dose: 30 mg Documented by: [id number] Ketorolac Tromethamine (Ketorolac Tromethamine 15 Mg/Ml Vial) 15 mg IV Q6H BRIANA Stop: 08/03/21 10:01 Last Admin: 08/03/21 08:53 Dose: 15 mg Documented by: [id number] Admin: 08/03/21 04:21 Dose: 15 mg Documented by: [id number] Admin: 08/02/21 21:05 Dose: 15 mg Documented by: [id number] Admin: 08/02/21 16:20 Dose: 15 mg Documented by: [id number] Admin: 08/02/21 09:51 Dose: 15 mg Documented by: [id number] Admin: 08/02/21 05:34 Dose: 15 mg Documented by: [id number] Admin: 08/01/21 22:04 Dose: 15 mg Documented by: [id number] Methylprednisolone (Methylprednisolone 40 Mg/Ml Vial) 40 mg IV NOW STA Stop: 08/01/21 11:33 Last Admin: 08/01/21 11:51 Dose: 40 mg Documented by: [id number] Metoclopramide HCl (Metoclopramide Hcl Inj 5 Mg/Ml 2 Ml Vial) 10 mg IV NOW STA Stop: 08/01/21 11:33 Last Admin: 08/01/21 11:51 Dose: 10 mg Documented by: [id number] Miscellaneous (*Desvenlafaxine*Order Awaiting Action) 1 ea N/A QS BRIANA Stop: 09/01/21 00:00 Last Admin: 08/02/21 07:20 Dose: Not Given Documented by: [id number] Admin: 08/01/21 23:01 Dose: Not Given Documented by: [id number] Morphine Sulfate (Morphine Sulfate 4 Mg/Ml 1 Ml Carp\Vial) 4 mg IV NOW STA Stop: 08/01/21 11:33 Last Admin: 08/01/21 11:51 Dose: 4 mg Documented by: [id number] Morphine Sulfate (Morphine Sulfate 4 Mg/Ml 1 Ml Carp\Vial) 4 mg IV NOW STA Stop: 08/01/21 13:35 Last Admin: 08/01/21 13:41 Dose: 4 mg Documented by: [id number] Venlafaxine HCl (Venlafaxine Hcl Xr 37.5 Mg Capxr) 37.5 mg PO HS BRIANA Stop: 08/31/21 20:59 Last Admin: 08/01/21 21:57 Dose: 37.5 mg Documented by: [id number] Medical Decision Making Differential Diagnosis Crohn's flare, appendicitis, cholecystitis, bowel obstruction, diverticulitis, colitis, gastroenteritis, ovarian torsion, ectopic , endometriosis Medical Records Attestation: I reviewed the patient's medical records. Home Medications Current Medication List: was personally reviewed by me Laboratory Data CBC, chemistry panel, lipase, UA, urine , and COVID nasal swab were obtained. Chemistry panel was unremarkable. White count is elevated at 14.84. Urine is negative. UA is unremarkable. Lipase is normal. COVID test is negative. Result diagrams: 08/05/21 05:52 08/05/21 05:52 Lab Results 08/01/21 08/01/21 08/01/21 Range/Units 11:20 11:20 11:20 WBC 14.84 H (4.8-10.8) K/uL RBC 4.63 (4.2-5.4) M/uL Hgb 14.1 (12.0-16.0) g/dL Hct 42.1 (37-47) % MCV 90.9 (80-100) fL MCH 30.5 (25-34) pg MCHC 33.5 (32-36) g/dL RDW Std Deviation 45.8 (36.4-46.3) fL RDW Coeff of Ewa 13.9 (11.5-14.5) % Plt Count 181 (130-400) K/uL MPV 10.8 H (7.4-10.4) fL Immature Gran % (Auto) 0.3 % Neut % (Auto) 86.5 % Lymph % (Auto) 8.3 % [place] % (Auto) 4.4 % Eos % (Auto) 0.4 % Baso % (Auto) 0.1 % Neut # (Auto) 12.83 H (1.4-6.5) K/uL Lymph # (Auto) 1.23 (1.2-3.4) K/uL [place] # (Auto) 0.66 H (0.11-0.59) K/uL Eos # (Auto) 0.06 (0-0.5) K/uL Baso # (Auto) 0.01 (0-0.2) K/uL Immature Gran # (Auto) 0.05 H (0.00-0.02) K/uL Sodium 137 (136-145) mmol/L Potassium 4.0 (3.5-5.1) mmol/L Chloride 103 (98-107) mmol/L Carbon Dioxide 26 (21-32) mmol/L Anion Gap 8 (3-11) BUN 19 (6-23) mg/dl Creatinine 0.75 (0.6-1.2) mg/dl Est Cr Clr Drug Dosing 137.0 ml/min Est GFR ( Amer) 123.1 ml/min Est GFR (Non-Af Amer) 106.2 ml/min BUN/Creatinine Ratio 25.3 H (10-20) Glucose 85 (70-99(Fasting)) mg/dl POC Glucose (70-99) mg/dl Lactate (0.4-2.0) mmol/L Calcium 9.4 (8.5-10.1) mg/dl Total Bilirubin 0.6 (0.2-1.0) mg/dl Direct Bilirubin (0-0.2) mg/dl AST 24 (13-39) U/L ALT 39 (7-52) U/L Alkaline Phosphatase 65 (34-104) U/L Total Protein 7.3 (6.0-8.3) gm/dl Albumin 4.3 (3.4-5.0) gm/dl Globulin 3.0 (2.5-4.0) gm/dl Albumin/Globulin Ratio 1.4 (0.9-2) Lipase 13 (11-82) U/L HCG, Qual Negative (Negative) Urine Color Urine Appearance (Clear) Urine pH (4.5-7.5) Ur Specific [place] (1.000-1.030) Urine Protein (Negative) Urine Glucose (UA) (Negative) Urine Ketones (Negative) Urine Blood (Negative) Urine Nitrite (Negative) Urine Bilirubin (Negative) Urine Urobilinogen (Negative) Ur Leukocyte Esterase (Negative) SARS-CoV-2, RNA, NAAT (NEGATIVE) 06/11/22 06/11/22 06/12/22 Range/Units 11:20 17:04 05:29 WBC 16.18 H (4.8-10.8) K/uL RBC 4.02 L (4.2-5.4) M/uL Hgb 12.9 (12.0-16.0) g/dL Hct 37.1 (37-47) % MCV 92.3 (80-100) fL MCH 32.1 (25-34) pg MCHC 34.8 (32-36) g/dL RDW Std Deviation 48.0 H (36.4-46.3) fL RDW Coeff of Ewa 14.1 (11.5-14.5) % Plt Count 193 (130-400) K/uL MPV 10.6 H (7.4-10.4) fL Immature Gran % (Auto) % Neut % (Auto) % Lymph % (Auto) % [place] % (Auto) % Eos % (Auto) % Baso % (Auto) % Neut # (Auto) (1.4-6.5) K/uL Lymph # (Auto) (1.2-3.4) K/uL [place] # (Auto) (0.11-0.59) K/uL Eos # (Auto) (0-0.5) K/uL Baso # (Auto) (0-0.2) K/uL Immature Gran # (Auto) (0.00-0.02) K/uL Sodium (136-145) mmol/L Potassium (3.5-5.1) mmol/L Chloride (98-107) mmol/L Carbon Dioxide (21-32) mmol/L Anion Gap (3-11) BUN (6-23) mg/dl Creatinine (0.6-1.2) mg/dl Est Cr Clr Drug Dosing ml/min Est GFR ( Amer) ml/min Est GFR (Non-Af Amer) ml/min BUN/Creatinine Ratio (10-20) Glucose (70-99(Fasting)) mg/dl POC Glucose (70-99) mg/dl Lactate (0.4-2.0) mmol/L Calcium (8.5-10.1) mg/dl Total Bilirubin (0.2-1.0) mg/dl Direct Bilirubin (0-0.2) mg/dl AST (13-39) U/L ALT (7-52) U/L Alkaline Phosphatase (34-104) U/L Total Protein (6.0-8.3) gm/dl Albumin (3.4-5.0) gm/dl Globulin (2.5-4.0) gm/dl Albumin/Globulin Ratio (0.9-2) Lipase (11-82) U/L HCG, Qual (Negative) Urine Color Yellow Urine Appearance Clear (Clear) Urine pH 5.5 (4.5-7.5) Ur Specific [place] 1.019 (1.000-1.030) Urine Protein Negative (Negative) Urine Glucose (UA) Negative (Negative) Urine Ketones Negative (Negative) Urine Blood Negative (Negative) Urine Nitrite Negative (Negative) Urine Bilirubin Negative (Negative) Urine Urobilinogen Negative (Negative) Ur Leukocyte Esterase Negative (Negative) SARS-CoV-2, RNA, NAAT NEGATIVE (NEGATIVE) 08/02/21 08/02/21 08/02/21 Range/Units 05:29 05:55 21:24 WBC (4.8-10.8) K/uL RBC (4.2-5.4) M/uL Hgb (12.0-16.0) g/dL Hct (37-47) % MCV (80-100) fL MCH (25-34) pg MCHC (32-36) g/dL RDW Std Deviation (36.4-46.3) fL RDW Coeff of Ewa (11.5-14.5) % Plt Count (130-400) K/uL MPV (7.4-10.4) fL Immature Gran % (Auto) % Neut % (Auto) % Lymph % (Auto) % [place] % (Auto) % Eos % (Auto) % Baso % (Auto) % Neut # (Auto) (1.4-6.5) K/uL Lymph # (Auto) (1.2-3.4) K/uL [place] # (Auto) (0.11-0.59) K/uL Eos # (Auto) (0-0.5) K/uL Baso # (Auto) (0-0.2) K/uL Immature Gran # (Auto) (0.00-0.02) K/uL Sodium 136 (136-145) mmol/L Potassium 3.8 (3.5-5.1) mmol/L Chloride 106 (98-107) mmol/L Carbon Dioxide 24 (21-32) mmol/L Anion Gap 6 (3-11) BUN 17 (6-23) mg/dl Creatinine 0.64 (0.6-1.2) mg/dl Est Cr Clr Drug Dosing 159.1 ml/min Est GFR ( Amer) 137.8 ml/min Est GFR (Non-Af Amer) 118.9 ml/min BUN/Creatinine Ratio 26.6 H (10-20) Glucose 109 H (70-99(Fasting)) mg/dl POC Glucose 106 H (70-99) mg/dl Lactate 1.7 (0.4-2.0) mmol/L Calcium 8.2 L (8.5-10.1) mg/dl Total Bilirubin 0.6 (0.2-1.0) mg/dl Direct Bilirubin 0.1 (0-0.2) mg/dl AST 14 (13-39) U/L ALT 27 (7-52) U/L Alkaline Phosphatase 49 (34-104) U/L Total Protein 6.4 (6.0-8.3) gm/dl Albumin 3.6 (3.4-5.0) gm/dl Globulin (2.5-4.0) gm/dl Albumin/Globulin Ratio (0.9-2) Lipase 6 L (11-82) U/L HCG, Qual (Negative) Urine Color Urine Appearance (Clear) Urine pH (4.5-7.5) Ur Specific [place] (1.000-1.030) Urine Protein (Negative) Urine Glucose (UA) (Negative) Urine Ketones (Negative) Urine Blood (Negative) Urine Nitrite (Negative) Urine Bilirubin (Negative) Urine Urobilinogen (Negative) Ur Leukocyte Esterase (Negative) SARS-CoV-2, RNA, NAAT (NEGATIVE) 08/03/21 08/03/21 Range/Units 08:43 08:43 WBC 13.83 H (4.8-10.8) K/uL RBC 4.11 L (4.2-5.4) M/uL Hgb 12.8 (12.0-16.0) g/dL Hct 38.7 (37-47) % MCV 94.2 (80-100) fL MCH 31.1 (25-34) pg MCHC 33.1 (32-36) g/dL RDW Std Deviation 48.9 H (36.4-46.3) fL RDW Coeff of Ewa 14.3 (11.5-14.5) % Plt Count 184 (130-400) K/uL MPV 10.5 H (7.4-10.4) fL Immature Gran % (Auto) % Neut % (Auto) % Lymph % (Auto) % [place] % (Auto) % Eos % (Auto) % Baso % (Auto) % Neut # (Auto) (1.4-6.5) K/uL Lymph # (Auto) (1.2-3.4) K/uL [place] # (Auto) (0.11-0.59) K/uL Eos # (Auto) (0-0.5) K/uL Baso # (Auto) (0-0.2) K/uL Immature Gran # (Auto) (0.00-0.02) K/uL Sodium 138 (136-145) mmol/L Potassium 4.1 (3.5-5.1) mmol/L Chloride 108 H (98-107) mmol/L Carbon Dioxide 25 (21-32) mmol/L Anion Gap 5 (3-11) BUN 12 (6-23) mg/dl Creatinine 0.67 (0.6-1.2) mg/dl Est Cr Clr Drug Dosing 152.0 ml/min Est GFR ( Amer) 135.8 ml/min Est GFR (Non-Af Amer) 117.1 ml/min BUN/Creatinine Ratio 17.9 (10-20) Glucose 147 H (70-99(Fasting)) mg/dl POC Glucose (70-99) mg/dl Lactate (0.4-2.0) mmol/L Calcium 8.3 L (8.5-10.1) mg/dl Total Bilirubin 0.4 (0.2-1.0) mg/dl Direct Bilirubin (0-0.2) mg/dl AST 15 (13-39) U/L ALT 30 (7-52) U/L Alkaline Phosphatase 50 (34-104) U/L Total Protein 6.6 (6.0-8.3) gm/dl Albumin 3.7 (3.4-5.0) gm/dl Globulin 2.9 (2.5-4.0) gm/dl Albumin/Globulin Ratio 1.3 (0.9-2) Lipase (11-82) U/L HCG, Qual (Negative) Urine Color Urine Appearance (Clear) Urine pH (4.5-7.5) Ur Specific [place] (1.000-1.030) Urine Protein (Negative) Urine Glucose (UA) (Negative) Urine Ketones (Negative) Urine Blood (Negative) Urine Nitrite (Negative) Urine Bilirubin (Negative) Urine Urobilinogen (Negative) Ur Leukocyte Esterase (Negative) SARS-CoV-2, RNA, NAAT (NEGATIVE) Imaging Data My Impression: CT scan imaging of the abdomen pelvis with IV contrast was obtained. This was read by radiology and reviewed by me. No abnormalities are noted. Specifically there is no appendicitis. Complete abdominal ultrasound was also obtained to rule out ovarian torsion and ectopic . This was also read by radiology and reviewed by me. It is unremarkable. Radiologist's Impression: Abdomen/Pelvis CT 08/01/21 11:32 CT abd pelvis IV con only CLINICAL HISTORY: RLQ abd pain, r/o appy TECHNIQUE: Helical axial images of the abdomen and pelvis were obtained and displayed. Automated dose lowering techniques and/or adjustment according to patient size were utilized for this exam. This exam was performed with intravenous contrast. CT DOSE: 585.21 mGy.cm COMPARISON: Comparison is made to CT abdomen pelvis 08/15/2014 FINDINGS: Lower chest: Bibasilar atelectasis versus scarring is seen. Liver: Hepatic steatosis is noted. Gallbladder and biliary tree: No calcified gallstones. Normal caliber wall. No intra- or extrahepatic biliary ductal dilation. Pancreas: Unremarkable, no focal lesions. Spleen: Unremarkable. Adrenals: Unremarkable. Kidneys and ureters: Unremarkable. Bladder: Unremarkable. Reproductive organs: Unremarkable. Bowel: Unremarkable appearance of the bowel. The appendix is normal. Lymph nodes Retroperitoneal: Unremarkable. Mesenteric: Unremarkable. Pelvic: Unremarkable. Peritoneum: Normal. Vessels: Unremarkable. Abdominal wall: Unremarkable. Bones: Degenerative changes in the visualized spine. IMPRESSION: No acute abnormalities and in particular no evidence of appendicitis. ACT 112: Negative or not required by law. Electronically signed by: Jesús Billingsley M.D. 08/01/2021 12:59 PM Pelvis Ultrasound 08/01/21 13:19 US pelvic complete CLINICAL HISTORY: RLQ abdominal pain TECHNIQUE: Real-time sonographic images of the pelvic contents were obtained with transabdominal and transvaginal technique. Comparison: None available at the time of this dictation. FINDINGS: The uterus measures 8.0 x 6.9 x 5.0 cm. The endometrial cavity echo stripe measures 0.7 cm in thickness. Multiple nabothian cysts are seen. The right ovary measures 3.2 x 2.4 x 2.0 cm. The left ovary measures 3.9 x 1.8 x 1.6 cm. Normal appearance of the ovaries bilaterally. Doppler flow is seen bilaterally. There was no fluid in the cul-de-sac. IMPRESSION: Normal transvaginal pelvic ultrasound. ACT 112: Negative or not required by law. Electronically signed by: Jesús Billingsley M.D. 08/01/2021 2:54 PM Prescription Drug Monitoring [place] Drug Monitoring Program reviewed and no issues identified Blood Pressure Blood Pressure Findings: Normal blood pressure MDM Narrative Patient was evaluated in room B9. IV was established. Labs were obtained. Patient does have a leukocytosis at 14.84. The rest of her lab work was unremarkable. She was placed on a band ripsaw operator and remained in normal sinus rhythm with a rate in the 90s. CT scan imaging of the abdomen was obtained with IV contrast. Because of her past history of IV contrast reaction, patient was premedicated with Benadryl 50 mg IV and Solu-Medrol 40 mg IV. She had no significant reaction to the IV dye. There is no evidence for appendicitis or Crohn's flare. No other abnormalities were noted. Complete abdominal ultr asound, including transvaginal, was also obtained to rule out FLOUR MIXER source. It was also unremarkable. Patient remained significantly painful while in the ED. She did require 2 doses of morphine 4 mg IV along with Toradol 30 mg IV to control her pain. A dose of Reglan 10 mg IV was also given to control her nausea. Because her pain remains significant despite multiple doses of IV narcotic, admission was recommended. Patient was in agreement. [facility] hospitalist service was consulted. Please see their note for final management. Patient remained stable while in the ED. Impression & Plan Abdominal pain in female patient Patient will be admitted to the hospitalist service for further management and reevaluation in 12 hours to be sure this is not an early appendicitis. Please see their dictation for final management. There was difficulty getting her pain under control. She did require numerous doses of pain medication IV. Patient did remain afebrile and stable while in the department. Discharge Plan Visit Data Chief Complaint: Abdominal Pain Stated Complaint: RT LOWER ABD PAIN INTO MID ABD ED Midlevel Provider: Justo Irwin Discharge Problem: Abdominal pain in female patient Patient Disposition: Admitted As Inpatient Discharge Instructions Interventions: ED Discharge Assessment Last Done: 08/01/21 17:59
[2021-08-01] MEDS ORDERED: KETOROLAC 30 MG/ML VIAL IV ONE (15:25)
[2021-08-01] MEDS ORDERED: diphenhydrAMINE 50 MG/ML VIAL IV ONE (15:37)
--- NOTE | 2021-08-01 17:48 | History & Physical Report ---
Date of Service August 01, 2021 Assessment & Plan (1) Abdominal pain: Plan: Admit to [facility] Patient presenting from home with reports of central/RLQ abdominal pain that began this morning In the ED, WBC 14.8K. CT ABD/pelvis and transvaginal ultrasound unremarkable fo r acute findings. Leukocytosis may be reactive due to pain Patient with history of Crohn's and also is currently on her menstrual cycle which may be contributing UA unremarkable Ketorolac 15 mg IV q6h scheduled, morphine as needed for breakthrough pain, Zofran IVF Repeat CBC in a.m. (2) Inappropriate sinus tachycardia: Plan: HR currently controlled Continue verapamil (3) Crohns disease: Plan: Receives Avsola every 6 weeks (4) Anxiety: (5) Depression: Plan: Continue home meds (6) Migraines: Plan: Resumed Topamax last evening for migraine prophylaxis Will hold for now given development of abdominal pain today (7) DVT prophylaxis: Plan: SCDs History of Present Illness Chief Complaint: abdominal pain Primary Care Provider: Henry Rueda MD 31 year old female with PMH Crohn's disease on [place], hepatic steatosis, recurrent C. Diff, inappropriate tachycardia, anxiety, depression, and other problems listed below who presents to the ED with reports of abdominal pain. Patient reports she woke up in the middle of the night with central and RLQ abdominal pain. Pain continued to worsen. She took some Ibuprofen without any improvement. She also had associated nausea and took 3 doses of Zofran. No vomiting. Patient reports she is on day #5 of her menstrual cycle. She states that she sometimes gets cramps however not this severe. No diarrhea. Reports chills and episodes of diaphoresis however did not check her temperature. No chest pain or shortness of breath. Denies lightheadedness, dizziness, and syncopal events. No urinary symptoms. In the ED, labs show WBC 14.8K. CT and/pelvis and transvaginal US unremarkable for acute findings. Patient has received multiple doses of pain medicine in the ED and continues to have significant discomfort. Allergies Allergy/AdvReac Type Severity Reaction Status Date / Time Egg Derived Allergy Severe Anaphylaxis Verified 03/05/21 19:09 Influenza Virus Vaccines Allergy Severe Anaphylaxis Verified 03/05/21 19:09 Iodinated Contrast Media Allergy Intermediate Hives Verified 08/01/21 16:57 latex Allergy Intermediate Hives Verified 03/05/21 19:09 metronidazole Allergy Intermediate Hives Verified 03/05/21 19:09 chlorhexidine Allergy Mild Rash Verified 03/05/21 19:09 MRI CONTRAST DYE Allergy Intermediate RASH ALL Uncoded 03/05/21 19:09 OVER Home Medications Medication Instructions Recorded Confirmed Type clonazepam 0.5 mg tablet (Klonopin) 0.25 mg PO HS PRN 11/18/18 08/01/21 History fexofenadine 180 mg tablet 180 mg PO HS 01/17/19 08/01/21 History (Samina Allergy) montelukast 10 mg tablet 10 mg PO HS 01/17/19 08/01/21 History (Singulair) desvenlafaxine succinate 100 mg 100 mg PO HS 11/06/19 08/01/21 History tablet,extended release 24 hr sumatriptan succinate 50 mg tablet 50 mg PO DAILY PRN 11/06/19 08/01/21 History dicyclomine 10 mg capsule 10 mg PO TID PRN 04/08/20 08/01/21 History promethazine 25 mg tablet 25 mg PO Q8H PRN 04/08/20 08/01/21 History sumatriptan succinate 6 mg/0.5 mL 6 mg SUBCUT DIRECTED PRN 04/08/20 08/01/21 History subcutaneous pen injector infliximab-axxq 100 mg intravenous 870 mg IV USEASDIRECTD 08/01/21 08/01/21 History solution (Avsola) ondansetron HCl 4 mg tablet 4 mg PO Q8H PRN 08/01/21 08/01/21 History topiramate 50 mg tablet 50 mg PO HS 08/01/21 08/01/21 History verapamil 120 mg tablet,extended 120 mg PO HS 08/01/21 08/01/21 History release Past Med/Surg History Medical History (Updated 08/01/21 @ 17:47 by LEAH Hutchison) Accessory breast in female LEFT SIDE REMOVED 2014 Anxiety Asthma C. 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 uHston's addendum for physical exam Results & Data Results & Data ([facility]) Vital Signs (Past 12 Hours) Vital Signs Temp Pulse Pulse Resp BP BP Pulse Ox 08/01/21 17:25 86 18 112/62 98 08/01/21 15:02 86 20 120/77 100 08/01/21 13:07 90 18 129/79 100 08/01/21 11:43 91 H 20 127/76 100 08/01/21 10:56 36.2 C L 90 18 106/72 99 Laboratory Results Short CBC 08/01/21 Range/Units 11:20 WBC 14.84 H (4.8-10.8) K/uL Hgb 14.1 (12.0-16.0) g/dL Hct 42.1 (37-47) % Plt Count 181 (130-400) K/uL BMP 08/01/21 11:20 Sodium 137 Potassium 4.0 Chloride 103 Carbon Dioxide 26 BUN 19 Creatinine 0.75 Glucose 85 Calcium 9.4 Liver Function 08/01/21 Range/Units 11:20 Total Bilirubin 0.6 (0.2-1.0) mg/dl AST 24 (13-39) U/L ALT 39 (7-52) U/L Alkaline Phosphatase 65 (34-104) U/L Albumin 4.3 (3.4-5.0) gm/dl Urine 08/01/21 Range/Units 11:20 Urine Color Yellow Urine Appearance Clear (Clear) Urine pH 5.5 (4.5-7.5) Ur Specific [place] 1.019 (1.000-1.030) Urine Protein Negative (Negative) Urine Glucose (UA) Negative (Negative) Diagnostic Findings Short CBC 08/01/21 Range/Units 11:20 WBC 14.84 H (4.8-10.8) K/uL Hgb 14.1 (12.0-16.0) g/dL Hct 42.1 (37-47) % Plt Count 181 (130-400) K/uL BMP 08/01/21 11:20 Sodium 137 Potassium 4.0 Chloride 103 Carbon Dioxide 26 BUN 19 Creatinine 0.75 Glucose 85 Calcium 9.4 Liver Function 08/01/21 Range/Units 11:20 Total Bilirubin 0.6 (0.2-1.0) mg/dl AST 24 (13-39) U/L ALT 39 (7-52) U/L Alkaline Phosphatase 65 (34-104) U/L Albumin 4.3 (3.4-5.0) gm/dl Urine 08/01/21 Range/Units 11:20 Urine Color Yellow Urine Appearance Clear (Clear) Urine pH 5.5 (4.5-7.5) Ur Specific [place] 1.019 (1.000-1.030) Urine Protein Negative (Negative) Urine Glucose (UA) Negative (Negative) Code Status & VTE Plan Code Status Patient is a full code as per Dr. Huston's discussion with her. VTE Prophylaxis Plan VTE Prophylaxis will be ordered: Yes
--- NOTE | 2021-08-01 17:58 | Communication Note ---
Date of Service: August 01, 2021 History and physical exam performed by me. History notable for 31-year-old woman who presents to the ER with severe abdominal pain that started earlier this morning, central, severe occasionally referred to the right, associated with nausea. On exam, General: No acute distress Eyes: PERRL, conjunctivae normal, not pale, anicteric sclerae, EOM intact bilaterally ENMT: External ear and nose normal, oropharynx normal Respiratory: Normal respiratory effort, no respiratory distress, lungs clear to auscultation, no crackles and no wheezes Cardiovascular: RRR S1 S2 Gastrointestinal (Abdomen): Abdomen is not distended, soft, central abd tenderness, no guarding, no palpable hepatosplenomegaly, normal bowel sounds Musculoskeletal: No cyanosis or clubbing, all extremities motor strength 5/5 Genitourinary: No CVA tenderness Neurologic: Alert and oriented x 3, No focal weakness, sensation grossly intact Psychiatric: Alert and oriented x 3, euthymic affect Lab work notable for WBC of 14.84. Abdominal CT did not show any acute abnormalities and no evidence of appendicitis. Noted hepatic steatosis. Pelvic ultrasound was normal. Abdominal pain Leukocytosis. Unclear etiology. ? Related to menstrual. This patient is on day 5 of her regular menses. Had reported she gets menstrual cramps but nothing as part of today's Pain control for now. Monitor labs. Antiemetics prn IVF Agree with other plans as detailed by Gely LYNN
[2021-08-01] MEDS ORDERED: DICYCLOMINE HCL 10 MG CAP PO PRN (18:37)
[2021-08-01] MEDS: SODIUM CHLORIDE 0.9% 1000ML 1,000 ML IV SCH (19:16)
[2021-08-01] MEDS: MoRPHine SULFATE 2 MG/ML CARP IV PRN (19:16)
[2021-08-01] MEDS: ONDANSETRON INJ 2 MG/ML 2 ML VIAL IV PRN (19:16)
[2021-08-01] MEDS ORDERED: VENLAFAXINE HCL XR 37.5 MG CAPXR PO SCH (21:00)
[2021-08-01] MEDS: VERAPAMIL HCL 120 MG TABCR PO SCH (21:58)
[2021-08-01] MEDS: MONTELUKAST SODIUM 10 MG TABLET PO SCH (22:02)
[2021-08-01] MEDS: FEXOFENADINE HCL 180 MG TAB PO SCH (22:03)
[2021-08-01] MEDS: KETOROLAC TROMETHAMINE 15 MG/ML VIAL IV SCH (22:04)
[2021-08-02] MEDS: KETOROLAC TROMETHAMINE 15 MG/ML VIAL IV SCH ×4 (05:34→21:05)
[2021-08-02 06:04] LABS: Hematocrit (blood only) 37.1 % (37-47); Hemoglobin 12.9 g/dL (12.0-16.0); Mean Corpuscular Hemoglobin 32.1 pg (25-34); Mean Corpuscular Hgb Conc 34.8 g/dL (32-36); Mean Corpuscular Volume 92.3 fL (80-100); Mean Platelet Volume 10.6 fL (7.4-10.4); Platelet Count 193 K/uL (130-400); RDW Coefficient of Variation 14.1 % (11.5-14.5); Red Blood Count 4.02 M/uL (4.2-5.4); White Blood Count 16.18 K/uL (4.8-10.8)
[2021-08-02] MEDS ORDERED: SODIUM CHLORIDE 0.9% 500 ML IV SCH (06:15)
[2021-08-02 06:23] LABS: Albumin Level 3.6 gm/dl (3.4-5.0); BUN Creatinine Ratio 26.6 (10-20); Bilirubin Direct 0.1 mg/dl (0-0.2); Bilirubin,Total 0.6 mg/dl (0.2-1.0); Calcium 8.2 mg/dl (8.5-10.1); Creatinine Clr Calc Pharmacy 159.1 ml/min; Est GFR (African American) 137.8 ml/min; Est GFR (Non-African American) 118.9 ml/min; Potassium 3.8 mmol/L (3.5-5.1); Total Protein 6.4 gm/dl (6.0-8.3)
[2021-08-02] MEDS: SODIUM CHLORIDE 0.9% 1000ML 1,000 ML IV SCH ×2 (07:20→19:21)
--- NOTE | 2021-08-02 12:19 | Electrocardiogram Report ---
Test Reason : Blood Pressure : / mmHG Vent. Rate : 090 BPM Atrial Rate : 090 BPM P-R Int : 140 ms QRS Dur : 082 ms QT Int : 384 ms P-R-T Axes : 061 040 060 degrees QTc Int : 469 ms Normal sinus rhythm When compared with ECG of 05-MAR-2021 17:33, No significant change was found Confirmed by Terrence Guerrero ([id number]) on 08/02/2021 12:19:25 PM Referred By: REFERRED SELF Confirmed By:Hua Guerrero
--- NOTE | 2021-08-02 13:02 | Hospitalist Progress Note ---
Date of Service August 02, 2021 Assessment & Plan (1) Abdominal pain: Plan: Patient presented from home with reports of central/RLQ abdominal pain that began this morning In the ED, WBC 14.8K. CT ABD/pelvis and transvaginal ultrasound unremarkable for acute findings. Still has leukocytosis Crohn's flare is a possibility Continue pain management UA unremarkable Will get GI's input (2) Crohns disease: Plan: Receives Avsola every 6 weeks (3) Inappropriate sinus tachycardia: Plan: HR currently controlled Continue verapamil (4) Anxiety: (5) Depression: Plan: Continue home meds (6) Migraines: Plan: Resumed Topamax the evening prior to admission for migraine prophylaxis. Currently on hold (7) DVT prophylaxis: Plan: SCDs Admission and Anticipated Discharge Date Admission Date: August 01, 2021 Subjective Patient seen and examined Continues to report abd pain, moderate today. Passing flatus. Poor appetite. Has not had BM today Denied dysuria, freq, urgency, hematuria No fever, chills No nausea today Denied chest pain, cough, SOB, palpitations Physical Exam Constitutional: + well hydrated; no acute distress Eyes: PERRL, conjunctivae normal, anicteric sclerae ENMT: external ear and nose normal, oropharynx normal Respiratory: normal respiratory effort, lungs clear to auscultation Cardiovascular: RRR, no murmur, no edema Gastrointestinal (Abdomen): Soft, not distended, central tenderness, no organomegaly, normal bowel sounds Musculoskeletal: no cyanosis or clubbing, extremities motor strength 5/5 Neurologic: PERRL, EOMI, accommodation nl, no face palsy, no dysarthria Psychiatric: A+Ox3, euthymic affect Results & Data Results & Data ([facility]) Vital Signs (Past 12 Hours) Vital Signs Temp Pulse Pulse Resp BP Pulse Ox 08/02/21 07:27 36.5 C 76 16 98/59 L 96 08/02/21 05:40 36.5 C 78 16 107/65 97 Laboratory Results Abnormal lab results 08/02/21 08/02/21 08/02/21 Range/Units 05:29 05:29 05:55 WBC 16.18 H (4.8-10.8) K/uL RBC 4.02 L (4.2-5.4) M/uL RDW Std Deviation 48.0 H (36.4-46.3) fL MPV 10.6 H (7.4-10.4) fL BUN/Creatinine Ratio 26.6 H (10-20) Glucose 109 H (70-99(Fasting)) mg/dl POC Glucose 106 H (70-99) mg/dl Calcium 8.2 L (8.5-10.1) mg/dl Lipase 6 L (11-82) U/L
[2021-08-02] MEDS: ONDANSETRON INJ 2 MG/ML 2 ML VIAL IV PRN (18:56)
[2021-08-02] MEDS: MoRPHine SULFATE 2 MG/ML CARP IV PRN (18:56)
[2021-08-02] MEDS: ACETAMINOPHEN 325 MG TAB PO PRN (20:00)
[2021-08-02] MEDS: DESVENLAFAXINE SUCCINATE ER TABLET PO SCH (20:08)
[2021-08-02] MEDS: MONTELUKAST SODIUM 10 MG TABLET PO SCH (20:09)
[2021-08-02] MEDS: FEXOFENADINE HCL 180 MG TAB PO SCH (20:09)
[2021-08-02] MEDS: VERAPAMIL HCL 120 MG TABCR PO SCH (20:10)
[2021-08-02] MEDS ORDERED: PIPERACILLIN/TAZOBACTAM 3.375 GM in DEXTROSE 5% 100 ML IV ONE (21:00)
[2021-08-02] MEDS ORDERED: diphenhydrAMINE 50 MG/ML VIAL IV STA (21:19)
[2021-08-02] MEDS ORDERED: methylPREDNISolone 50 MG in SYRINGE 0 ML IV ONE (21:19)
[2021-08-02] MEDS ORDERED: OPTIRAY 320 100ml IV ONE ×2 (22:13→22:14)
[2021-08-03] MEDS: PIPERACILLIN/TAZOBACTAM 3.375 GM in DEXTROSE 5% 100 ML IV SCH ×3 (02:07→18:06)
[2021-08-03] MEDS: ACETAMINOPHEN 325 MG TAB PO PRN ×2 (02:10→23:48)
[2021-08-03] MEDS: KETOROLAC TROMETHAMINE 15 MG/ML VIAL IV SCH ×2 (04:21→08:53)
[2021-08-03] MEDS: SODIUM CHLORIDE 0.9% 1000ML 1,000 ML IV SCH ×2 (05:45→19:20)
--- NOTE | 2021-08-03 08:11 | CT Scan Report ---
CT OF THE ABDOMEN AND PELVIS WITH CONTRAST CLINICAL HISTORY: Severe abdominal pain. COMPARISON STUDY: CT of the abdomen and pelvis August 01, 2021. Pelvic ultrasound August 01, 2021. TECHNIQUE: Patient was premedicated for IV dye allergy. Following IV administration of 95 mL of Optir ay, axial images of the abdomen and pelvis were obtained from the lung bases to the proximal femurs. Images were reviewed in the axial, sagittal, and coronal planes. IV contrast was administered without complication. Automated exposure control was utilized for the study. A dose lowering technique was utilized adhering to the principles of ALARA. CT DOSE: 641.69 mGy.cm FINDINGS: Trace right pleural effusion is noted. No pneumatosis, free air or portal venous gas is pre sent. There is hepatic steatosis. No biliary or pancreatic ductal dilatation is present. There is mil d splenomegaly. The adrenal glands, kidneys and pancreas are unremarkable. There is no hydronephrosis . No peripancreatic or pericholecystic infiltration is present. Caliber and wall thickness of small a nd large bowel are normal. The appendix is normal. There is no evidence for a bowel obstruction. Trac e fluid within the pelvis is likely physiologic. Ovaries are not enlarged. Major vasculature is paten t. Mesenteric lymph nodes are within normal limits. No abdominal or pelvic lymphadenopathy is present . No acute fracture or suspicious lesion is identified within visualized skeletal structures. IMPRESSION: 1. No acute process within the abdomen or pelvis. 2. No bowel obstruction. No bowel wall thickening. Normal appendix. 3. Hepatic steatosis. 4. Mild splenomegaly. ACT 112: Negative or not required by law. Electronically signed by: Arturo Thompson M.D. 08/03/2021 8:10 AM
[2021-08-03 09:10] LABS: Hematocrit (blood only) 38.7 % (37-47); Hemoglobin 12.8 g/dL (12.0-16.0); Mean Corpuscular Hemoglobin 31.1 pg (25-34); Mean Corpuscular Volume 94.2 fL (80-100); Mean Platelet Volume 10.5 fL (7.4-10.4); Platelet Count 184 K/uL (130-400); RDW Coefficient of Variation 14.3 % (11.5-14.5); RDW Standard Deviation 48.9 fL (36.4-46.3); Red Blood Count 4.11 M/uL (4.2-5.4); White Blood Count 13.83 K/uL (4.8-10.8)
[2021-08-03 09:15] LABS: Mean Corpuscular Hgb Conc 33.1 g/dL (32-36)
[2021-08-03 09:42] LABS: Albumin Globulin Ratio 1.3 (0.9-2); Albumin Level 3.7 gm/dl (3.4-5.0); BUN Creatinine Ratio 17.9 (10-20); Bilirubin,Total 0.4 mg/dl (0.2-1.0); Calcium 8.3 mg/dl (8.5-10.1); Est GFR (African American) 135.8 ml/min; Est GFR (Non-African American) 117.1 ml/min; Globulin 2.9 gm/dl (2.5-4.0); Potassium 4.1 mmol/L (3.5-5.1); Total Protein 6.6 gm/dl (6.0-8.3)
--- NOTE | 2021-08-03 13:41 | Hospitalist Progress Note ---
Date of Service August 03, 2021 Assessment & Plan (1) Abdominal pain: Plan: Patient presented from home with reports of central/RLQ abdominal pain that began this morning In the ED, WBC 14.8K. CT ABD/pelvis and transvaginal ultrasound unremarkable for acute findings. Still has leukocytosis Developed fever overnight With leukocytosis and fever, sepsis is a possibility. However, unclear etiology Repeat CT abd did not show acute findings but noted mild splenomegaly Was started on zosyn overnight Follow up blood cultures Continue pain management UA unremarkable Will appreciate GI evaluation (2) Crohns disease: Plan: Receives Avsola every 6 weeks (3) Inappropriate sinus tachycardia: Plan: HR currently controlled Continue verapamil (4) Anxiety: (5) Depression: Plan: Continue home meds (6) Migraines: Plan: Resumed Topamax the evening prior to admission for migraine prophylaxis. Currently on hold (7) DVT prophylaxis: Plan: SCDs Admission and Anticipated Discharge Date Admission Date: August 01, 2021 Subjective Patient seen and examined Continues to report abd pain, moderate Passing flatus. Poor appetite. No BM but denied constipation Denied dysuria, freq, urgency, hematuria Had fever overnight Reports nausea today Denied chest pain, cough, SOB, palpitations Physical Exam Constitutional: + well hydrated; no acute distress Eyes: PERRL, conjunctivae normal, anicteric sclerae ENMT: external ear and nose normal, oropharynx normal Respiratory: normal respiratory effort, lungs clear to auscultation Cardiovascular: RRR, no murmur, no edema Gastrointestinal (Abdomen): Soft, not distended, +tenderness (central and right), no organomegaly, BS normal Musculoskeletal: no cyanosis or clubbing, extremities motor strength 5/5 Neurologic: PERRL, EOMI, accommodation nl, no face palsy, no dysarthria Psychiatric: A+Ox3, euthymic affect Results & Data Results & Data ([facility]) Vital Signs (Past 12 Hours) Vital Signs Temp Pulse Resp BP Pulse Ox 08/03/21 07:57 36.6 C 72 18 105/68 95 08/03/21 06:08 36.6 C 08/03/21 02:10 37.2 C
--- NOTE | 2021-08-03 16:13 | Gastrointestinal Consultation ---
Date of Consultation August 03, 2021 Assessment & Plan (1) Crohns disease: (2) Abdominal pain: (3) Fever: (4) Leukocytosis: Although her symptoms are not typical of Crohn's flare symptoms that she has experienced in the past, they certainly are suggestive of Crohn's disease. However, imaging without any evidence of Crohn's flare. there is no evidence of appendicitis or other problems on CT as well, however that CT was done without oral contrast so non adequate evaluation of IBD. - MR enterography with prednisone 50 mg IV pre treat patient has a history of having had a rash on her neck and upper chest with prior MR enterography. - Would not start IV steroids her Crohn's without evidence of a flare. However she has had 2 doses of prednisone IV and will get a 3rd dose, all for pre treats for contrast allergies. Of note she is not improved in her right lower quadrant pain with these doses of prednisone ( thus far 50 mg daily x2 and another 50 mg ordered for tomorrow). The lack of improvement in the abdominal pain with prednisone argues against a Crohn's flare. - Because she is passing gas and bowel movements no specific diet restrictions at this point the patient probably feel best on a clear liquid diet or at least full liquid diet with low lactose. - Antiemetics - would avoid NSAIDs (consider tramadolol vs. toradol). further recommendations to follow MRE we will continue to follow along. Supervising Physician Co-Signing Physician Notes Late entry: Patient was seen and examined on 08/03 with LEAH Ortiz whose note reflects our findings and plan. Symptoms may be related to IBD though imaging not s/o acute flare though not done with contrast. Further MRE to evaluate. History of Present Illness Reason for Consultation: Persistent abd pain. H/o Crohn. Leukocytosis Requesting Physician: Dr. Mcdonald Attending Physician: Tamara Huston MD History of Present Illness Ms. Savannah Kaur is a 31-year-old female patient of Dr. Mohit robles a hx of migraines, do now rheumatoid arthritis, Crohn's Colitis, managed by LEAH Ortega and Dr. Jessee Miguel. she was awaken from sleep with severe right lower quadrant pain early in the morning on Tuesday. She presented to the emergency department where CT scan did not show cause, But labs showed leukocytosis and she has had fevers most recent being last evening max 38.9. She is being covered with Zosyn. She has not had any significant improvement in this right lower quadrant pain. Though she had a bit of abdominal distension on Tuesday, she has been passing gas consistently and had a small bowel movement Tuesday and another small 1 this afternoon. She has a lot of nausea and had 1 episode of emesis. She has not had any blood in her bowel movements no hematemesis. She has not had any unexplained weight loss. She did not have any symptoms leading up to the sudden onset of pain on Tuesday. CT was repeated yesterday again without any clear cause of her pain. However, both CT scans were done without oral contrast so not ideal for evaluation of IBD. she does not feel as though she is having symptoms that are typical of Crohn's flare. In the past she has had frequent loose bowel movements with blood mixed in during Crohn's flares. She has never had right lower quadrant pain w prior Crohn's flares. Regarding her history of Crohn's disease, was diagnosed in 2013 at [facility] at that time with only Inflammatory rectal involvement. she is maintained on Remicade. Previously failed Delzicol, Methotrexate, Sulfasalazine. Her most recent colonoscopy was December [address] Chavez with endoscopic/histologic remission. On exam today, she is awake alert hemodynamically stable and remains exquisitely tender in the right lower quadrant and has nausea, poor appetite but no vomiting. Allergies Allergy/AdvReac Type Severity Reaction Status Date / Time Egg Derived Allergy Severe Anaphylaxis Verified 03/05/21 19:09 Influenza Virus Vaccines Allergy Severe Anaphylaxis Verified 03/05/21 19:09 Iodinated Contrast Media Allergy Intermediate Hives Verified 08/01/21 16:57 latex Allergy Intermediate Hives Verified 03/05/21 19:09 metronidazole Allergy Intermediate Hives Verified 03/05/21 19:09 chlorhexidine Allergy Mild Rash Verified 03/05/21 19:09 MRI CONTRAST DYE Allergy Intermediate RASH ALL Uncoded 03/05/21 19:09 OVER Home Medications Medication Instructions Recorded Confirmed Type clonazepam 0.5 mg tablet (Klonopin) 0.25 mg PO HS PRN 11/18/18 08/01/21 History fexofenadine 180 mg tablet 180 mg PO HS 01/17/19 08/01/21 History (Samina Allergy) montelukast 10 mg tablet 10 mg PO HS 01/17/19 08/01/21 History (Singulair) desvenlafaxine succinate 100 mg 100 mg PO HS 11/06/19 08/01/21 History tablet,extended release 24 hr sumatriptan succinate 50 mg tablet 50 mg PO DAILY PRN 11/06/19 08/01/21 History dicyclomine 10 mg capsule 10 mg PO TID PRN 04/08/20 08/01/21 History promethazine 25 mg tablet 25 mg PO Q8H PRN 04/08/20 08/01/21 History sumatriptan succinate 6 mg/0.5 mL 6 mg SUBCUT DIRECTED PRN 04/08/20 08/01/21 History subcutaneous pen injector infliximab-axxq 100 mg intravenous 870 mg IV USEASDIRECTD 08/01/21 08/01/21 History solution (Avsola) ondansetron HCl 4 mg tablet 4 mg PO Q8H PRN 08/01/21 08/01/21 History topiramate 50 mg tablet 50 mg PO HS 08/01/21 08/01/21 History verapamil 120 mg tablet,extended 120 mg PO HS 08/01/21 08/01/21 History release Patient History Medical History (Updated 08/03/21 @ 16:32 by LEAH Malagon) Accessory breast in female LEFT SIDE REMOVED 2014 Anxiety Asthma C. difficile diarrhea Classic migraine Crohns disease Depression Hepatic steatosis Herpes simplex Inappropriate sinus tachycardia Inflammatory arthritis Surgical History H/O right knee surgery RIGHT KNEE-2003,2009 History of dilation and curettage S/P lobectomy of lung 2013-[facility] [place] teeth removed 2009 Family History Father Hypertension Social History Smoking Status: Never smoker Second Hand Exposure: No; Hx Alcohol Use: Yes Alcohol type: hard liquor Hx Substance Use: No Preferred Language: Chadian Communication Ability: Effective Head Mixer Required: No Beliefs That Will Affect Care: None marital status: Current Living Situation: Family Other Information That Helps Us Care for You: No Feels Safe at Home: Yes Safety Concerns: Feels Safe At This Time Assistive Devices: None Review of Systems Review of Systems: ROS: Gen: + fevers; Denies weakness, weight loss Eyes: No eye redness, or pain, no recent vision changes Resp: No SOB, no cough Cardio: No palpitations/irregular beats, no chest pain GI: As per HPI otherwise negative : Denies pain on urination Skin: No jaundice, itching or new rashes M/S: chronic joint pain with arthritis, no recent worsening. Physical Exam Constitutional: well developed and cooperative Eyes: PERRL, conjunctivae normal, anicteric sclerae ENMT: external ear and nose normal, oropharynx normal Neck: trachea midline, no thyromegaly Respiratory: normal respiratory effort, lungs clear to auscultation Cardiovascular: RRR, no murmur, no edema Gastrointestinal (Abdomen): Inspection/Auscultation: abdomen normal to inspection and normal bowel sounds; abdomen not distended Percussion/Palpation: + abdomen tender (exquisitely tender in the RLQ), + guarding (RLQ) and abdomen soft; abdomen not rigid Skin: no rashes, warm and dry normal turgor Neurologic: PERRL, EOMI, accommodation nl, no face palsy, no dysarthria awake; not confused Psychiatric: A+Ox3, euthymic affect Lymphatic: no cervical or axillary lymphadenopathy Results & Data ([facility]) Vital Signs (Past 12 Hours) Vital Signs Temp Pulse Resp BP Pulse Ox 08/03/21 07:57 36.6 C 72 18 105/68 95 08/03/21 06:08 36.6 C Laboratory Results WBC 13.8, HB 12, HCT 38, PLT S1-8 4, Na 138, K 4.1, Cl 108, CO2 25, BUN 12, CR 0.67, glucose 147 Diagnostic Findings CTAP with IV contrast 08/01/2021:No acute abnormalities and in particular no evidence of appendicitis. CTAP with IV contrast 08/02/21: 1. No acute process within the abdomen or pelvis. 2. No bowel obstruction. No bowel wall thickening. Normal appendix. 3. Hepatic steatosis. 4. Mild splenomegaly. Pelvic US 08/01/21: Normal transvaginal pelvic ultrasound.
[2021-08-03] MEDS: FEXOFENADINE HCL 180 MG TAB PO SCH (20:35)
[2021-08-03] MEDS: VERAPAMIL HCL 120 MG TABCR PO SCH (20:36)
[2021-08-03] MEDS: MONTELUKAST SODIUM 10 MG TABLET PO SCH (20:36)
[2021-08-03] MEDS: DESVENLAFAXINE SUCCINATE ER TABLET PO SCH (20:37)
[2021-08-03] MEDS: clonazePAM 0.25 MG TAB PO PRN (23:48)
[2021-08-04] MEDS: PIPERACILLIN/TAZOBACTAM 3.375 GM in DEXTROSE 5% 100 ML IV SCH ×3 (02:16→18:25)
[2021-08-04] MEDS ORDERED: methylPREDNISolone 50 MG in SYRINGE 0 ML IV SCH (05:00)
[2021-08-04] MEDS: SODIUM CHLORIDE 0.9% 1000ML 1,000 ML IV SCH ×2 (06:10→20:24)
[2021-08-04 08:17] LABS: Hematocrit (blood only) 35.1 % (37-47); Hemoglobin 11.7 g/dL (12.0-16.0); Mean Corpuscular Hgb Conc 33.3 g/dL (32-36); Mean Corpuscular Volume 92.9 fL (80-100); Mean Platelet Volume 10.6 fL (7.4-10.4); Platelet Count 171 K/uL (130-400); RDW Coefficient of Variation 14.2 % (11.5-14.5); RDW Standard Deviation 48.5 fL (36.4-46.3); Red Blood Count 3.78 M/uL (4.2-5.4)
[2021-08-04 08:34] LABS: Albumin Globulin Ratio 1.2 (0.9-2); Albumin Level 3.3 gm/dl (3.4-5.0); BUN Creatinine Ratio 12.7 (10-20); Bilirubin,Total 0.4 mg/dl (0.2-1.0); Creatinine Clr Calc Pharmacy 161.6 ml/min; Est GFR (African American) 138.5 ml/min; Est GFR (Non-African American) 119.5 ml/min; Globulin 2.7 gm/dl (2.5-4.0); Potassium 3.6 mmol/L (3.5-5.1)
[2021-08-04] MEDS ORDERED: methylPREDNISolone 40 MG in SYRINGE 0 ML IV STA (08:46)
[2021-08-04] MEDS: ONDANSETRON INJ 2 MG/ML 2 ML VIAL IV PRN (10:22)
--- NOTE | 2021-08-04 11:05 | Gastroenterology Progress Note ---
Date of Service August 04, 2021 Assessment & Plan (1) Crohns disease: (2) Abdominal pain: (3) Fever: (4) Leukocytosis: Plan: No clear etiology for the right lower quadrant pain. This is concerning for small bowel Crohn's though she has not had this in the past. - Antiemetics - would avoid NSAIDs (consider tramadolol vs. toradol). - Further recommendations to follow MRE we will continue to follow along. Admission and Anticipated Discharge Date Admission Date: August 03, 2021 Supervising Physician Co-Signing Physician Notes Late entry: Patient was seen and examined on 08/04 with LEAH Ortiz whose note reflects our findings and plan. MRE to further evaluate Subjective 31, female history of Crohn's colitis, admitted on 611 for severe right lower quadrant pain. Has had leukocytosis and fever, both seemingly resolved on Zosyn. CTAP with IV no oral contrast normal x2. MRA pending today. Pain is slightly improved. Review of Systems Review of Systems: ROS: Gen: + fevers; Denies weakness, weight loss Eyes: No eye redness, or pain, no recent vision changes Resp: No SOB, no cough Cardio: No palpitations/irregular beats, no chest pain GI: As per HPI otherwise negative : Denies pain on urination Skin: No jaundice, itching or new rashes M/S: chronic joint pain with arthritis, no recent worsening. Physical Exam Constitutional: well developed and cooperative Eyes: PERRL, conjunctivae normal, anicteric sclerae ENMT: external ear and nose normal, oropharynx normal Neck: trachea midline, no thyromegaly Respiratory: normal respiratory effort, lungs clear to auscultation Cardiovascular: RRR, no murmur, no edema Gastrointestinal (Abdomen): Inspection/Auscultation: abdomen normal to inspection and normal bowel sounds; abdomen not distended Percussion/Palpation: + abdomen tender (moderately tender in the RLQ), + guarding (RLQ) and abdomen soft; abdomen not rigid Skin: no rashes, warm and dry normal turgor Neurologic: PERRL, EOMI, accommodation nl, no face palsy, no dysarthria awake; not confused Psychiatric: A+Ox3, euthymic affect Lymphatic: no cervical or axillary lymphadenopathy Results & Data ([facility]) Vital Signs (Past 12 Hours) Vital Signs Temp Pulse Resp BP Pulse Ox 06/14/22 07:30 36.4 C L 72 18 123/83 96 08/03/21 23:34 36.7 C 74 16 106/67 97 Laboratory Results WBC 7, Hb 11.7, HCT 35.1, glucose 171, NA 139, K3.8, CL 110, CO2 25, BUN 8, CR 0.63, glucose 98. Diagnostic Findings CTAP with IV no oral contrast 08/02/2021: 1. No acute process within the abdomen or pelvis. 2. No bowel obstruction. No bowel wall thickening. Normal appendix. 3. Hepatic steatosis. 4. Mild splenomegaly. CTAP 08/01/2021 with IV no oral contrast: No acute abnormalities and in particular no evidence of appendicitis. Pelvic ultrasound 08/01/2021 normal
[2021-08-04] MEDS ORDERED: GLUCAGON FOR INJ 1 MG VIAL ONE (12:05)
[2021-08-04] MEDS ORDERED: GLUCAGON FOR INJ 1 MG VIAL IM ONE (12:07)
[2021-08-04] MEDS ORDERED: GADOBUTROL 65ML VIAL IV ONE (12:59)
[2021-08-04] MEDS: ACETAMINOPHEN 325 MG TAB PO PRN ×2 (13:12→20:41)
--- NOTE | 2021-08-04 13:29 | Magnetic Resonance Report ---
MR enterography wo/w con CLINICAL HISTORY: RLQ pain, hx of Crohn's ? any evidence of Crohn's COMPARISON: Comparison is made to CT abdomen pelvis 08/02/2021 TECHNIQUE: Multiplanar multisequence images were obtained of the abdomen with and without the adminis tration of contrast. An MR enterography protocol was utilized with oral administration of VoLumen con trast. Cine MR fluoroscopy was acquired for dynamic evaluation of bowel peristalsis. 1 mg of glucagon was administered intramuscularly after cine imaging prior to intravenous contrast injection. FINDINGS: Lower chest: No acute abnormality Liver: Unremarkable. No focal lesions are seen. Gallbladder and biliary tree: No calcified gallstones. Normal caliber wall. No intra- or extrahepatic biliary ductal dilation. Pancreas: Unremarkable, no focal lesions. Spleen: Unremarkable. Adrenals: Unremarkable. Kidneys and ureters: Unremarkable. Bowel: Normal peristalsis is seen. No bowel edema or thickening or abnormal enhancement is seen. No f istulas are noted. Lymph nodes Retroperitoneal: Unremarkable. Mesenteric: Unremarkable. Peritoneum: Normal Vessels: Atherosclerotic calcifications are seen. Abdominal wall: Unremarkable. Bones: Degenerative changes in the visualized spine. IMPRESSION: No evidence of aperistaltic segments, edema, or thickening and enhancement of the bowel wall to sugge st active Crohn's disease. ACT 112: Negative or not required by law. Electronically signed by: Jesús Billingsley M.D. 08/04/2021 1:28 PM
--- NOTE | 2021-08-04 16:37 | Hospitalist Progress Note ---
Date of Service August 04, 2021 Assessment & Plan (1) Abdominal pain: Plan: Patient presented from home with reports of central/RLQ abdominal pain that began this morning In the ED, WBC 14.8K. CT ABD/pelvis and transvaginal ultrasound unremarkable for acute findings. Still has leukocytosis Developed fever overnight With leukocytosis and fever, sepsis is a possibility. However, unclear etiology Repeat CT abd did not show acute findings but noted mild splenomegaly Has been afebrile. Leukocytosis resolved today Blood cultures negative so far Currently on Zosyn Continue pain management Antiemetics as needed. Follow-up GI evaluation MRE today was unremarkable (2) Crohns disease: Plan: Receives Avsola every 6 weeks (3) Inappropriate sinus tachycardia: Plan: HR currently controlled Continue verapamil (4) Anxiety: (5) Depression: Plan: Continue home meds (6) Migraines: Plan: Resumed Topamax the evening prior to admission for migraine prophylaxis. Currently on hold (7) DVT prophylaxis: Plan: SCDs Ambulate Admission and Anticipated Discharge Date Admission Date: August 03, 2021 Subjective Patient seen and examined. Continues to report abdominal pain Reported occasional nausea. Denied vomiting Reported dark stool today. No diarrhea. Denied dysuria, frequency, urgency, hematuria Denied fevers or chills today Fever and leukocytosis resolved today. Physical Exam Constitutional: + well hydrated; no acute distress Eyes: PERRL, conjunctivae normal, anicteric sclerae ENMT: external ear and nose normal, oropharynx normal Respiratory: normal respiratory effort, lungs clear to auscultation Cardiovascular: RRR, no murmur, no edema Gastrointestinal (Abdomen): Inspection/Auscultation: abdomen normal to inspection and normal bowel sounds; abdomen not distended Right lower quadrant tenderness Musculoskeletal: no cyanosis or clubbing, extremities motor strength 5/5 Neurologic: PERRL, EOMI, accommodation nl, no face palsy, no dysarthria Psychiatric: A+Ox3, euthymic affect Results & Data Results & Data ([facility]) Vital Signs (Past 12 Hours) Vital Signs Temp Pulse Resp BP Pulse Ox 08/04/21 07:30 36.4 C L 72 18 123/83 96 Laboratory Results Abnormal lab results 08/04/21 08/04/21 Range/Units 07:44 07:44 RBC 3.78 L (4.2-5.4) M/uL Hgb 11.7 L (12.0-16.0) g/dL Hct 35.1 L (37-47) % RDW Std Deviation 48.5 H (36.4-46.3) fL MPV 10.6 H (7.4-10.4) fL Chloride 110 H (98-107) mmol/L Calcium 8.0 L (8.5-10.1) mg/dl Albumin 3.3 L (3.4-5.0) gm/dl
[2021-08-04] MEDS: DESVENLAFAXINE SUCCINATE ER TABLET PO SCH (20:30)
[2021-08-04] MEDS: MONTELUKAST SODIUM 10 MG TABLET PO SCH (20:30)
[2021-08-04] MEDS: FEXOFENADINE HCL 180 MG TAB PO SCH (20:30)
[2021-08-04] MEDS: VERAPAMIL HCL 120 MG TABCR PO SCH (20:30)
[2021-08-04] MEDS: clonazePAM 0.25 MG TAB PO PRN (20:42)
[2021-08-05] MEDS: PIPERACILLIN/TAZOBACTAM 3.375 GM in DEXTROSE 5% 100 ML IV SCH ×3 (01:45→17:49)
[2021-08-05 06:41] LABS: Hemoglobin 11.7 g/dL (12.0-16.0); Mean Corpuscular Hemoglobin 30.5 pg (25-34); Mean Corpuscular Hgb Conc 33.4 g/dL (32-36); Mean Corpuscular Volume 91.1 fL (80-100); Mean Platelet Volume 10.7 fL (7.4-10.4); Platelet Count 192 K/uL (130-400); RDW Coefficient of Variation 13.8 % (11.5-14.5); RDW Standard Deviation 46.5 fL (36.4-46.3); Red Blood Count 3.84 M/uL (4.2-5.4); White Blood Count 10.83 K/uL (4.8-10.8)
[2021-08-05 07:27] LABS: Albumin Globulin Ratio 1.3 (0.9-2); Albumin Level 3.3 gm/dl (3.4-5.0); BUN Creatinine Ratio 13.6 (10-20); Bilirubin,Total 0.3 mg/dl (0.2-1.0); Creatinine Clr Calc Pharmacy 154.3 ml/min; Est GFR (African American) 136.4 ml/min; Est GFR (Non-African American) 117.7 ml/min; Globulin 2.6 gm/dl (2.5-4.0); Potassium 3.4 mmol/L (3.5-5.1); Total Protein 5.9 gm/dl (6.0-8.3)
[2021-08-05] MEDS: SODIUM CHLORIDE 0.9% 1000ML 1,000 ML IV SCH ×2 (09:07→21:38)
[2021-08-05] MEDS ORDERED: POTASSIUM CHLORIDE CRTAB 20 MEQ TABCR PO STA (09:17)
--- NOTE | 2021-08-05 12:44 | Gastroenterology Progress Note ---
Date of Service August 05, 2021 Assessment & Plan (1) Crohns disease: (2) Abdominal pain: (3) Fever: (4) Leukocytosis: Plan: No clear etiology for the right lower quadrant pain, fever, leukocytosis. No evidence of IBD flare on CT x 2 or MR enterography and only slight improvement in pain with prednisone doses that were given for contrast allx - all argues against an IBD flare. ID consult placed. Consider RN PROGRESSIVE C[employer] consult to r/o PID or other Epic Cadence Analyst origin of pain/fever. Gastro will follow along but there is not evidence suggesting that this is related to her hx of Crohn's colitis. Admission and Anticipated Discharge Date Admission Date: August 03, 2021 Supervising Physician Co-Signing Physician Notes Late entry: Patient was seen and examined on 08/05 with LEAH Ortiz whose note reflects our findings and plan. Subjective Patient seen and examined. Continues to report abdominal pain, though w slight improvement, now able to manage with tylenol po. Main problem today is weakness, body aches, "just don't feel good." Eating small amts. Review of Systems Review of Systems: ROS: Gen: + fevers; Denies weakness, weight loss Eyes: No eye redness, or pain, no recent vision changes Resp: No SOB, no cough Cardio: No palpitations/irregular beats, no chest pain GI: As per HPI otherwise negative : Denies pain on urination Skin: No jaundice, itching or new rashes M/S: chronic joint pain with arthritis, no recent worsening. Physical Exam Constitutional: well developed and cooperative Eyes: PERRL, conjunctivae normal, anicteric sclerae ENMT: external ear and nose normal, oropharynx normal Neck: trachea midline, no thyromegaly Respiratory: normal respiratory effort, lungs clear to auscultation Cardiovascular: RRR, no murmur, no edema Gastrointestinal (Abdomen): Inspection/Auscultation: abdomen normal to inspection and normal bowel sounds; abdomen not distended Percussion/Palpation: + abdomen tender (moderately tender in the RLQ), + guarding (RLQ) and abdomen soft; abdomen not rigid Skin: no rashes, warm and dry normal turgor Neurologic: PERRL, EOMI, accommodation nl, no face palsy, no dysarthria awake; not confused Psychiatric: A+Ox3, euthymic affect Lymphatic: no cervical or axillary lymphadenopathy Results & Data ([facility]) Vital Signs (Past 12 Hours) Vital Signs Temp Pulse Resp BP Pulse Ox 08/05/21 07:28 36.5 C 63 12 139/92 98 Laboratory Results WBC 10, Hb 11.7, Hct 35, Plts 192, Na 138, K 3.4, CL 109, CO2 25, BUN 9, Cr 0.6, glucose 112. Diagnostic Findings MR Enterography 08/04/21: No evidence of aperistaltic segments, edema, or thickening and enhancement of the bowel wall to suggest active Crohn's disease.
[2021-08-05] MEDS: DESVENLAFAXINE SUCCINATE ER TABLET PO SCH (21:36)
[2021-08-05] MEDS: FEXOFENADINE HCL 180 MG TAB PO SCH (21:37)
[2021-08-05] MEDS: VERAPAMIL HCL 120 MG TABCR PO SCH (21:37)
[2021-08-05] MEDS: clonazePAM 0.25 MG TAB PO PRN (21:37)
[2021-08-05] MEDS: MONTELUKAST SODIUM 10 MG TABLET PO SCH (21:37)
[2021-08-05] MEDS: ACETAMINOPHEN 325 MG TAB PO PRN (21:37)
--- NOTE | 2021-08-06 01:39 | Hospitalist Progress Note ---
Date of Service August 05, 2021 Assessment & Plan (1) Abdominal pain: Plan: Patient presented from home with reports of central/RLQ abdominal pain that began this morning CT ABD/pelvis and transvaginal ultrasound unremarkable for acute findings. WBC 14.8K on admission Repeat CT abd did not show acute findings but noted mild splenomegaly MRI enterography showed no evidence of aperistaltic segments, edema, or thickening and enhancement of the bowel wall to suggest active Crohn's disease. Currently on IV abx with Zosyn Gastro on board No evidence of IBD flare on CT or MR enterography Blood cx no growth Tolerated diet ID consult placed by GI to r/o any infectious etiology She has been afebrile for more than 72hr Continue pain management Antiemetics as needed. (2) Crohns disease: Plan: Receives Avsola every 6 weeks (3) Inappropriate sinus tachycardia: Plan: HR currently controlled Continue verapamil (4) Anxiety: (5) Depression: Plan: Continue home meds (6) Migraines: Plan: Resumed Topamax the evening prior to admission for migraine prophylaxis. Currently on hold (7) DVT prophylaxis: Plan: SCDs Ambulate Admission and Anticipated Discharge Date Admission Date: August 03, 2021 Subjective Pt was seen and examined for follow up of abdominal pain Sitting in bed with no acute distress Pt said that her abdominal pain improves since starting on the IV zosyn Pt said that she feels a little better Denies any chest pain, palpitation, dizziness, nausea and vomiting Review of Systems Review of Systems: All systems reviewed & are unremarkable except as noted in Subjective Physical Exam Physical Exam: General- No acute distress Head- atraumatic Eyes- PERRL, EOMI, ENT- oropharynx clear Neck- supple, no JVD Lungs- clear to auscultation Heart- regular rhythm; no murmur Abdomen- normal bowel sounds, +tenderness with deep palpation in RLQ/ hypogastric abdominal Extremities- no calf tenderness Neuro- alert, oriented x 3; PERRL, EOMI; no facial palsy; no dysarthria Skin- warm & dry Results & Data Results & Data ([facility]) Vital Signs (Past 12 Hours) Vital Signs Temp Pulse Resp BP Pulse Ox 08/05/21 22:59 36.5 C 69 16 127/88 98 08/05/21 16:17 37.0 C 91 H 12 110/74 97
[2021-08-06] MEDS: PIPERACILLIN/TAZOBACTAM 3.375 GM in DEXTROSE 5% 100 ML IV SCH ×2 (02:21→09:39)
--- NOTE | 2021-08-06 10:52 | Gastroenterology Progress Note ---
Date of Service August 06, 2021 Assessment & Plan (1) Crohns disease: (2) Abdominal pain: (3) Fever: (4) Leukocytosis: Plan: No clear etiology for the right lower quadrant pain, fever, leukocytosis. Will check tick born serology. EB panel is pending. ID consult placed. Consider CONTRACT LEAD consult to r/o PID or other Resp Ther origin of pain/fever. Though pt w very low risks. GI will sign off. Pt to f/u in OP setting non urgently for Crohn's. Admission and Anticipated Discharge Date Admission Date: August 03, 2021 Supervising Physician Co-Signing Physician Notes I have seen and examined the patient with LEAH Ortiz whose note reflects our findings and plan. Subjective RLQ pain persists but is much improved. glass loading equipment tender there on exam. Fatigue, myalgias improved. No further fevers or leukocytosis Review of Systems Review of Systems: ROS: Gen: No fevers; Denies weakness, weight loss Eyes: No eye redness, or pain, no recent vision changes Resp: No SOB, no cough Cardio: No palpitations/irregular beats, no chest pain GI: As per HPI otherwise negative : Denies pain on urination Skin: No jaundice, itching or new rashes M/S: chronic joint pain with arthritis, no recent worsening. Physical Exam Constitutional: well developed and cooperative Eyes: PERRL, conjunctivae normal, anicteric sclerae ENMT: external ear and nose normal, oropharynx normal Neck: trachea midline, no thyromegaly Respiratory: normal respiratory effort, lungs clear to auscultation Cardiovascular: RRR, no murmur, no edema Gastrointestinal (Abdomen): Inspection/Auscultation: abdomen normal to inspection and normal bowel sounds; abdomen not distended Percussion/Palpation: + abdomen tender (moderately tender in the RLQ) and abdomen soft; no guarding and abdomen not rigid Skin: no rashes, warm and dry normal turgor Neurologic: PERRL, EOMI, accommodation nl, no face palsy, no dysarthria awake; not confused Psychiatric: A+Ox3, euthymic affect Lymphatic: no cervical or axillary lymphadenopathy Results & Data ([facility]) Vital Signs (Past 12 Hours) Vital Signs Temp Pulse Resp BP BP Pulse Ox 08/06/21 07:43 36.6 C 67 18 129/87 98 08/05/21 22:59 36.5 C 69 16 127/88 98 Laboratory Results WBC 10.8, Hb 11.7, Hct 35, Plts 192, Na 138, K 3.4, Cl 109, CO2 25, BUN 9, Cr 0.6, glucose 112 Diagnostic Findings MR enterography 08/04/21: No evidence of aperistaltic segments, edema, or thickening and enhancement of the bowel wall to suggest active Crohn's disease. Pelvic US 08/01/21: Normal transvaginal pelvic ultrasound. CTAP w IV 08/01: No acute abnormalities and in particular no evidence of appendicitis. CTAP w IV 08/02: 1. No acute process within the abdomen or pelvis. 2. No bowel obstruction. No bowel wall thickening. Normal appendix. 3. Hepatic steatosis. 4. Mild splenomegaly.
[2021-08-06 10:57] LABS: Basophils # (auto) 0.02 K/uL (0-0.2); Basophils % (auto) 0.3 %; Eosinophils # (auto) 0.13 K/uL (0-0.5); Eosinophils % (auto) 1.8 %; Hematocrit (blood only) 43.5 % (37-47); Hemoglobin 14.2 g/dL (12.0-16.0); Immature Granulocytes # (auto) 0.03 K/uL (0.00-0.02); Immature Granulocytes % (auto) 0.4 %; Lymphocytes # (auto) 2.78 K/uL (1.2-3.4); Lymphocytes % (auto) 38.7 %; Mean Corpuscular Hemoglobin 29.8 pg (25-34); Mean Corpuscular Volume 91.4 fL (80-100); Mean Platelet Volume 10.8 fL (7.4-10.4); Monocytes % (auto) 5.6 %; Neutrophils # (auto) 3.83 K/uL (1.4-6.5); Neutrophils % (auto) 53.2 %; Platelet Count 231 K/uL (130-400); RDW Coefficient of Variation 13.9 % (11.5-14.5); RDW Standard Deviation 46.4 fL (36.4-46.3); Red Blood Count 4.76 M/uL (4.2-5.4); White Blood Count 7.19 K/uL (4.8-10.8)
[2021-08-06 11:06] LABS: Albumin Globulin Ratio 1.3 (0.9-2); Albumin Level 3.8 gm/dl (3.4-5.0); Bilirubin,Total 0.4 mg/dl (0.2-1.0); Calcium 8.7 mg/dl (8.5-10.1); Creatinine Clr Calc Pharmacy 124.2 ml/min; Est GFR (African American) 110.5 ml/min; Est GFR (Non-African American) 95.4 ml/min; Globulin 2.9 gm/dl (2.5-4.0); Potassium 3.5 mmol/L (3.5-5.1); Total Protein 6.7 gm/dl (6.0-8.3)
[2021-08-06] MEDS: SODIUM CHLORIDE 0.9% 1000ML 1,000 ML IV SCH (11:18)
[2021-08-06 11:31] LABS: Mean Corpuscular Hgb Conc 32.6 g/dL (32-36)
[2021-08-06 11:47] LABS: Lyme Ab IgG w/WB Rflx Negative (Negative); Lyme Ab IgM w/WB Rflx Negative (Negative)
--- NOTE | 2021-08-06 17:53 | Discharge Summary ---
Date of Service August 06, 2021 Admission HPI Per Admitting Provider 31 year old female with PMH Crohn's disease on [place], hepatic steatosis, recurrent C. Diff, inappropriate tachycardia, anxiety, depression, and other problems listed below who presents to the ED with reports of abdominal pain. Patient reports she woke up in the middle of the night with central and RLQ abdominal pain. Pain continued to worsen. She took some Ibuprofen without any improvement. She also had associated nausea and took 3 doses of Zofran. No vomiting. Patient reports she is on day #5 of her menstrual cycle. She states that she sometimes gets cramps however not this severe. No diarrhea. Reports chills and episodes of diaphoresis however did not check her temperature. No chest pain or shortness of breath. Denies lightheadedness, dizziness, and syncopal events. No urinary symptoms. In the ED, labs show WBC 14.8K. CT and/pelvis and transvaginal US unremarkable for acute findings. Patient has received multiple doses of pain medicine in the ED and continues to have significant discomfort. Discharge Exam General- No acute distress Head- atraumatic Eyes- PERRL, EOMI, ENT- oropharynx clear Neck- supple, no JVD Lungs- clear to auscultation Heart- regular rhythm; no murmur Abdomen- normal bowel sounds, +tenderness with deep palpation in RLQ/ hypogastric abdominal Extremities- no calf tenderness Neuro- alert, oriented x 3; PERRL, EOMI; no facial palsy; no dysarthria Skin- warm & dry Discharge Data Allergies Allergy/AdvReac Type Severity Reaction Status Date / Time Egg Derived Allergy Severe Anaphylaxis Verified 03/05/21 19:09 Influenza Virus Vaccines Allergy Severe Anaphylaxis Verified 03/05/21 19:09 Iodinated Contrast Media Allergy Intermediate Hives Verified 08/01/21 16:57 latex Allergy Intermediate Hives Verified 03/05/21 19:09 metronidazole Allergy Intermediate Hives Verified 03/05/21 19:09 chlorhexidine Allergy Mild Rash Verified 03/05/21 19:09 MRI CONTRAST DYE Allergy Intermediate RASH ALL Uncoded 03/05/21 19:09 OVER Consultations 08/01/21 16:34 ED Decision to Admit Stat 08/02/21 13:08 Consult Gastroenterology Routine 08/05/21 09:27 Consult Infectious Diseases Routine Ordered Studies 08/01/21 11:32 CT abd pelvis IV con only Stat 08/01/21 13:19 US pelvic complete Stat US transvaginal Stat 08/02/21 21:06 CT abd pelvis IV con only Urgent 08/04/21 08:00 MR enterography wo/w con Routine Hospital Course (1) Abdominal pain: Patient presented from home with reports of central/RLQ abdominal pain that began this morning CT ABD/pelvis and transvaginal ultrasound unremarkable for acute findings. WBC 14.8K on admission Repeat CT abd did not show acute findings but noted mild splenomegaly MRI enterography showed no evidence of aperistaltic segments, edema, or thickening and enhancement of the bowel wall to suggest active Crohn's disease. Currently on IV abx with Zosyn Gastro on board No evidence of IBD flare on CT or MR enterography Blood cx no growth Tolerated diet ID consult placed by GI to r/o any infectious etiology She has been afebrile for more than 72hr Continue pain management Antiemetics as needed. (2) Crohns disease: Receives Avsola every 6 weeks (3) Inappropriate sinus tachycardia: HR currently controlled Continue verapamil (4) Anxiety: (5) Depression: Continue home meds (6) Migraines: Resumed Topamax the evening prior to admission for migraine prophylaxis. Currently on hold (7) DVT prophylaxis: SCDs Ambulate Discharge Plan Discharge Items Patient Disposition: Home - Self-Care Reason For Visit: RLQ ABDOMINAL PAIN Discharge Diagnosis: Abdominal pain: Crohns disease: Inappropriate sinus tachycardia: Migraines: Activity: Resume your previous activity Non-emergency contact: Primary Care Provider and Agricultural Service Worker Call non-emergency contact if: you have any medication questions Follow-up/Referrals: Henry Rueda MD [Primary Care Provider] - Diet: Regular Addtl Attending Provider Instructions: Follow up with your primary care provider within 1 week ( please office will call you for the appointment) Follow with your gastroenterology Seek medical attention if your symptoms worsening or develop any fever You provider will discuss the result about the tick borne serology and Charlie- Calvert virus (result pending) Fall precaution Pending Studies at Discharge: Yes Studies:: Tick borne serology Stand-Alone Forms: My [employer] ([employer]), Smoking Cessation Medications and DC Order Prescriptions: Continued clonazepam [Klonopin] 0.5 mg Tablet 0.25 mg PO HS PRN (Reason: Anxiety) RF: 0 sumatriptan succinate 50 mg tablet 50 mg PO DAILY PRN (Reason: Migraine Headache) RF: 0 desvenlafaxine succinate 100 mg tablet extended release 24 hr 100 mg PO HS RF: 0 promethazine 25 mg tablet 25 mg PO Q8H PRN (Reason: Nausea) RF: 0 dicyclomine 10 mg capsule 10 mg PO TID PRN (Reason: Abdominal Pain) RF: 0 sumatriptan succinate 6 mg/0.5 mL pen injector 6 mg SUBCUT DIRECTED PRN (Reason: Migraine Headache) RF: 0 fexofenadine [Samina Allergy] 180 mg Tablet 180 mg PO HS RF: 0 montelukast [Singulair] 10 mg Tablet 10 mg PO HS RF: 0 topiramate 50 mg tablet 50 mg PO HS RF: 0 Avsola 100 mg Recon Soln 870 mg IV USEASDIRECTD RF: 0 verapamil 120 mg tablet extended release 120 mg PO HS RF: 0 ondansetron HCl 4 mg tablet 4 mg PO Q8H PRN (Reason: Nausea) Qty: 20 RF: 0 Discharge Orders: Discharge Order (Routine); Ordered 08/06/21 Ordered By: Jenny Reeves Admission Data Admit Date/Time: 08/03/21 13:36 Attending Provider: Jenny Reeves Admit Provider: Tamara Huston I. Primary Care Provider: Henry Rueda Other Providers: Tamara Huston I. ; Marcy Chavez ; Jasen Turpin ; Kevin Horta ; Shaun Triana I. ; Franck Donohue II ; Magda Zhang ; Seferino Ricardo ; Jerome Byrd
[2021-08-09 05:07] LABS: Babesia microti DNA Not Detected (Not Detected)
== END 2021-08-06 18:42 | disposition home or self-care (01) | DRG 392 ==
LOC: ED 10:54 → INTOOBSV 16:53 → 3W 16:53 → SUATTDRO 08-03 13:36

== ENCOUNTER 2022-05-25 11:17 | Inpatient (IN) ==
[2022-05-25] MEDS ORDERED: LIDOCAINE 1% LOCAL 20 ML VIAL INFIL PRN (12:30)
[2022-05-25] MEDS ORDERED: OXYTOCIN 30 UNITS/500 ML BAG IV PRN ×3 (12:30→22:55)
[2022-05-25 12:58] LABS: Hematocrit (blood only) 31.9 % (37.0-47.0); Hemoglobin 10.6 g/dl (12.0-16.0); Mean Corpuscular Hemoglobin 26.2 pg (25.0-34.0); Mean Corpuscular Hgb Conc 33.2 g/dL (32.0-36.0); Mean Platelet Volume 11.7 fL (9.4-12.4); Platelet Count 145 K/uL (130-400); RDW Coefficient of Variation 14.7 % (11.5-14.5); RDW Standard Deviation 41.7 fL (36.4-46.3); Red Blood Count 4.04 M/uL (4.20-5.40); White Blood Count 7.04 K/ul (4.8-10.8)
[2022-05-25 13:08] LABS: Albumin Level 3.1 gm/dl (3.4-5.0); Anion Gap 8 (3-11); Bilirubin,Total 0.3 mg/dl (0.2-1.0); Carbon Dioxide 20 mmol/L (21-32); Chloride 108 mmol/L (98-107); Potassium 3.6 mmol/L (3.5-5.1); Sodium 136 mmol/L (136-145)
[2022-05-25 13:14] LABS: Alanine Aminotransferase 12 U/L (7-52); Alkaline Phosphatase 105 U/L (34-104); Aspartate Aminotransferase 15 U/L (13-39); BUN Creatinine Ratio 11.9 (10-20); Blood Urea Nitrogen 5 mg/dl (6-23); Creatinine Clr Calc Pharmacy 255.9 ml/min; Est GFR (African American) > 150.0 ml/min; Est GFR (Non-African American) 135.6 ml/min; Globulin 3.1 gm/dl (2.5-4.0); Glucose 68 mg/dl (70-99(Fasting)); Total Protein 6.2 gm/dl (6.0-8.3)
[2022-05-25] MEDS: LACTATED RINGER'S 1,000 ML IV PRN ×3 (13:37→22:02)
[2022-05-25] MEDS ORDERED: fentaNYL citrate PF 100 MCG/2 ML VIAL ONE (13:43)
[2022-05-25] MEDS ORDERED: SODIUM CHLORIDE 0.9% PF INJ 10 ML VIAL ONE (13:43)
[2022-05-25] MEDS ORDERED: LIDOCAINE 2%/EPINEPHRINE 1:200,000 20 ML PF ONE (13:43)
[2022-05-25] MEDS ORDERED: BUPIVACAINE 0.25% PF 30 ML VIAL ONE (13:43)
[2022-05-25] MEDS ORDERED: ePHEDrine sulfate 50 MG/ML AMP ONE (13:43)
[2022-05-25] MEDS ORDERED: fentaNYL 2MCG/ML ROPIVACAINE 1.25MG/ML 100 ML BAG EPI ONE (13:44)
[2022-05-25] MEDS ORDERED: NALOXONE HCL 0.4 MG/1 ML VIAL/CARP IV PRN (14:04)
[2022-05-25] MEDS ORDERED: ONDANSETRON INJ 2 MG/ML 2 ML VIAL IV PRN (14:04)
[2022-05-25] MEDS ORDERED: fentaNYL 2MCG/ML ROPIVACAINE 1.25MG/ML 100 ML BAG EPI PRN (14:04)
[2022-05-25] MEDS ORDERED: NALOXONE HCL 1 MG in SODIUM CHLORIDE 0.9% 1000ML 1,000 ML IV PRN (14:04)
[2022-05-25] MEDS ORDERED: NALBUPHINE HCL INJ 10 MG/ML AMP IV PRN (14:04)
[2022-05-25] MEDS ORDERED: diphenhydrAMINE 50 MG/ML VIAL IV PRN (14:04)
[2022-05-25] MEDS ORDERED: ePHEDrine sulfate 50 MG/ML AMP IV PRN (14:04)
[2022-05-25 15:06] LABS: Total Protein Urine Random 4.7 mg/dl (0-11.9)
[2022-05-25 15:12] LABS: Creatinine Urine Random 30.2 mg/dl; Protein Creatinine Ratio Urine 0.2 (0-0.2)
--- NOTE | 2022-05-25 15:25 | Anesthesiology Consultation ---
Date of Service May 25, 2022 Assessment & Plan ASA ASA3 Proposed Anesthesia Anesthesia Type: Labor Epidural Risk / Benefits Reviewed With: PT / POA / Parent / Guardian, Accepts Plan and Informed Consent Obtained History Height/Weight Height: 5 ft 10 in Weight: 107.955 kg Allergies Allergy/AdvReac Type Severity Reaction Status Date / Time Egg Derived Allergy Severe Anaphylaxis Verified 01/04/22 06:02 Influenza Virus Vaccines Allergy Severe Anaphylaxis Verified 01/04/22 06:02 Iodinated Contrast Media Allergy Intermediate Hives Verified 01/04/22 06:02 latex Allergy Intermediate Hives Verified 01/04/22 06:02 metronidazole Allergy Intermediate Hives Verified 01/04/22 06:02 chlorhexidine Allergy Mild Rash Verified 01/04/22 06:02 Medications Home Medications Medication Instructions Recorded Confirmed Last Taken clonazepam 0.5 mg tablet (Klonopin) 0.25 mg PO HS PRN Anxiety 11/18/18 05/25/22 10/05/21 fexofenadine 180 mg tablet 180 mg PO HS 01/17/19 05/25/22 04/25/22 (Samina Allergy) desvenlafaxine succinate 100 mg 100 mg PO HS 11/06/19 05/25/22 05/24/22 tablet,extended release 24 hr sumatriptan succinate 50 mg tablet 50 mg PO UD PRN Migraine Headache 11/06/19 05/25/22 01/01/22 promethazine 25 mg tablet 25 mg PO Q8H PRN Nausea 04/08/20 05/25/22 11/05/21 sumatriptan succinate 6 mg/0.5 mL 6 mg subcut UD PRN Migraine 04/08/20 05/25/22 10/13/21 subcutaneous pen injector Headache infliximab-axxq 100 mg intravenous 870 mg IV UD 08/01/21 05/25/22 05/24/22 solution (Avsola) ondansetron HCl 4 mg tablet 4 mg PO Q8H PRN Nausea #20 tabs 08/06/21 05/25/22 12/28/21 albuterol sulfate 90 mcg/actuation 1 puff inhalation QID PRN SHORT OF 08/13/21 05/25/22 12/15/21 aerosol inhaler BREATH [id number] 1 mg 1 tab PO HS 12/31/21 05/25/2201/03/22 21:00 tablet Active Medications Generic Name Dose Route Start Last Admin Trade Name Alyssa PRN Reason Stop Dose Admin Lactated Ringer's 1,000 mls @ 125 mls/hr 05/25/22 12:30 05/25/22 14:39 Lr IV 05/27/22 12:29 125 mls/hr .Q8H PRN Administration L&D Protocol Protocol Oxytocin 30 units in 500 mls @ 2 mls/hr 05/25/22 13:24 05/25/22 14:54 Pitocin IV 05/27/22 13:23 0.12 units/hr .Q24H PRN 2 mls/hr Labor Induction/Augmentation Administration Protocol 0.12 UNITS/HR Ondansetron HCl 4 mg 05/25/22 14:04 05/25/22 14:50 Ondansetron Inj 2 Mg/Ml 2 Ml Vial IV 05/26/22 14:03 4 mg Q6H PRN Administration Nausea &/or Vomiting Past Medical History Medical History 14-20 weeks gestation of surgeon aware of Anxiety and depression Pristiq 100mg PO daily at HS Asthma only used prior to workout C. difficile diarrhea chronic; dx in [facility], no diarrhea currently, and no treatment currently. 8 months ago. Classic migraine hx Crohns disease Difficult intravenous access "pt was told to tell medical providers to call IV team for a midline, instead of trying for a regular IV" - from Appendix. Patient now has a PICC Line Hepatic steatosis History of COVID-19 X 2>LAST TESTED 04/2021 *FEVER, BODY ACHE, SOB *RESOLVED. Last infected with Covid-19 around . History of epidural anesthesia most recent 07/06/20: "difficult placement. Success on 3rd attempt at L2..." 01/12/18: L3-L4 x 1 attempt. Inappropriate sinus tachycardia currently holter monitor, comes off 01/03/22, just for a check-up; f/u dr flores, most recent 12/24/21 Inflammatory arthritis Raynauds syndrome Exercise / Class Metabolic Activity II 4-5 Yardwork/Stairs/Walk up hill Past Family History Family History Father Hypertension Family history of diabetes mellitus Other No family history of adverse response to anesthesia Past Surgical History Surgical History Accessory breast in female LEFT SIDE REMOVED 2014 H/O right knee surgery RIGHT KNEE-2003,2009 History of colonoscopy most recent 02/2021-[facility] History of esophagogastroduodenoscopy (EGD) History of surgery D&E 01/17/19: LMA#4 atraumatic. No postop issues per anesthesia progress note . Hx of appendectomy 08/14/2021 grade 1 view, Long 2, ETT 7. Hx of LASIK Nausea and vomiting after administration of anesthetic agent S/P lobectomy of lung 2013-BENIGN MASS REMOVED RLL Campbell teeth removed Past Anesthesia History No Hx of Anesthesia Complications and No Family Hx of Anesthesia Complications History of PONV No Hx of PONV and No Hx of Motion Sickness Social History Smoking Status: Never smoker Hx Alcohol Use: No Alcohol type: hard liquor alcohol intake frequency: holidays/special occasions only Hx Substance Use: No substance use type: does not use Review of Systems denies fever/cough/ colds/ chest pain/ SOB/ MIGUELANGEL denies MIGUELANGEL Physical Exam Vital Signs Last Vital Signs Temp 36.7 C 05/25/22 15:19 Pulse 90 05/25/22 15:24 Resp 20 05/25/22 15:19 BP 117/59 L 05/25/22 15:10 Pulse Ox 94 05/25/22 15:24 ENMT Mouth: no TMJ abnormality and no dentition abnormality Thyromental Distance: > or= 3.5 Finger Breadths Mallampati Class: II Neck neck extension not limited Respiratory normal respiratory effort; no respiratory distress Auscultation: lungs clear to auscultation bilaterally Cardiovascular Rate/Rhythm: regular rate and regular rhythm Neurologic moves all extremities Psychiatric Orientation: alert and oriented x 3 Testing Laboratory Results 05/25/22 12:40 05/25/22 12:40
[2022-05-25] MEDS ORDERED: Nursing to Pharmacy Communication SCH (18:30)
[2022-05-25] MEDS ORDERED: ACETAMINOPHEN 325 MG TAB PO PRN (22:55)
[2022-05-25] MEDS ORDERED: METHYLERGONOVINE MALEATE 0.2 MG/ML AMP ONE (22:55)
[2022-05-25] MEDS ORDERED: bisacodyL 10 MG SUPP PR PRN (22:55)
[2022-05-25] MEDS ORDERED: METHYLERGONOVINE MALEATE 0.2 MG/ML AMP IM ONE (22:55)
[2022-05-25] MEDS ORDERED: ACETAMINOPHEN W/CODEINE #3 1 TAB PO PRN (22:55)
[2022-05-25] MEDS ORDERED: HYDROCORTISONE ACETATE 25 MG SUPP PR PRN (22:55)
[2022-05-25] MEDS ORDERED: oxyCODONE/ACETAMINOPHEN 5mg/325mg TAB PO PRN (22:55)
[2022-05-25] MEDS ORDERED: DIPHTHERIA/TETANUS/PERTUSSIS 0.5mL SYR/VIAL (Age 7+yrs) IM ONE (22:55)
[2022-05-25] MEDS ORDERED: BENZOCAINE 20% AER SPR 82.5 GM CAN EXT PRN (22:55)
[2022-05-26] MEDS: DESVENLAFAXINE SUCCINATE ER TABLET PO SCH ×2 (00:04→20:49)
--- NOTE | 2022-05-26 00:52 | Operative Report (OR) ---
DELIVERY NOTE: She is a 6, para 5, blood type is A positive, group B strep negative, came in to my office in early labor at 36 weeks 4 days. She had been up most of the night, checked her in the office, she was about 3 cm dilated, pressure was slightly elevated. Contractions were moderately strong. Sent her over to Maternity. On the way to maternity, her membranes ruptured. Her pad was grossly Nitrazine positive and she was admitted. She was given epidural and then Pitocin. Gradually, the Pitocin was turned up. Eventually, we ruptured a forebag and she went to full dilatation. About 4 pushes, pushed out a live male infant via direct occiput anterior position over an intact perineum. Infant was suctioned through the mouth and the nose. Cord was allowed to pulse for 1 minute, then clamped, cut by the father. Cord blood was taken. With IV Pitocin running, the placenta was removed intact. Inspection of the perineum revealed a first-degree laceration. This was repaired with a deep suture approximating the bulbocavernosus muscle, separate deep suture approximating the perineal body, a running suture approximating the vaginal mucosa beyond the hymenal ring and then a running subcuticular suture approximating the perineal skin edges. Following this, vaginal exam revealed no hematoma or sponges in the vagina. Estimated blood loss was 100 mL. Job ID: [id number] [facility] THROAT HOSPITALVinny
[2022-05-26] MEDS: IBUPROFEN 600 MG TAB PO PRN ×6 (01:20→23:46)
[2022-05-26 06:23] LABS: Hematocrit (blood only) 30.1 % (37.0-47.0); Hemoglobin 9.7 g/dl (12.0-16.0); Mean Corpuscular Hemoglobin 26.4 pg (25.0-34.0); Mean Corpuscular Hgb Conc 32.2 g/dL (32.0-36.0); Mean Platelet Volume 11.8 fL (9.4-12.4); Platelet Count 138 K/uL (130-400); RDW Coefficient of Variation 14.6 % (11.5-14.5); RDW Standard Deviation 42.8 fL (36.4-46.3); Red Blood Count 3.67 M/uL (4.20-5.40); White Blood Count 8.16 K/ul (4.8-10.8)
[2022-05-26] MEDS: PRENATAL VITAMIN 1 TAB PO SCH (08:08)
[2022-05-26] MEDS: DOCUSATE SODIUM 100 MG CAP PO SCH ×2 (08:08→20:49)
[2022-05-26] MEDS ORDERED: DESVENLAFAXINE SUCCINATE ER TABLET PO SCH (09:00)
--- NOTE | 2022-05-26 09:19 | Anesthesia Procedure Note ---
Date of Service May 26, 2022 Anesthesia Post Epidural Note Vital Signs Vital Signs: Temp Pulse Resp BP Pulse Ox O2 Del Method 36.8 C 106 H 18 123/78 96 Room Air 05/26/22 04:45 05/26/22 04:45 05/26/22 04:45 05/26/22 04:45 05/26/22 01:50 05/26/22 01:50 Pain Intensity Bilateral Abdomen: Pain Intensity: 5 Notes Mental Status: alert / awake / arousable and participated in evaluation Nausea / Vomiting: adequately controlled Pain: adequately controlled Airway Patency, RR, SpO2: stable & adequate BP & HR: stable & adequate Hydration State: stable & adequate Neuraxial Anesthesia: was administered and sensory block is resolving Anesthetic Complications: no major complications apparent Epidural: Removed without complications and With tip intact
--- NOTE | 2022-05-26 17:55 | Obstetrical Progress Note ---
Date of Service May 26, 2022 Assessment & Plan Admission and Anticipated Discharge Date Admission Date: May 25, 2022 Subjective abdomen soft and non tendert no calf tenderness ambulating well vaginal bleeding scant hgb 9.7 Results & Data Vital Signs (Past 12 Hours) Vital Signs Temp Pulse Resp BP Pulse Ox O2 Del Method 05/26/22 16:20 36.7 C 92 H 18 117/80 97 Room Air 05/26/22 11:15 36.6 C 107 H 16 113/75 96 Room Air 05/26/22 07:50 37.0 C 100 H 18 130/83 97 Room Air
[2022-05-26] MEDS ORDERED: COUGH DROP (SUGAR FREE) LOZ 24 LOZ/1 BOX BUCCAL ONE (19:06)
[2022-05-26] MEDS ORDERED: bisacodyL 5 MG TABEC PO SCH (20:00)
[2022-05-26] MEDS ORDERED: DEXTROMETHORPHAN POLYMR COMPLX 30 MG/5 ML UDP PO PRN (23:04)
[2022-05-27] MEDS ORDERED: DEXTROMETHORPHAN POLYMR COMPLX 30 MG/5 ML UDP PO STA (01:16)
[2022-05-27] MEDS: PRENATAL VITAMIN 1 TAB PO SCH (08:25)
[2022-05-27] MEDS: DOCUSATE SODIUM 100 MG CAP PO SCH (08:25)
[2022-05-27] MEDS: IBUPROFEN 600 MG TAB PO PRN (08:25)
[2022-05-27 09:09] LABS: Hematocrit (blood only) 32.3 % (37.0-47.0); Hemoglobin 10.5 g/dl (12.0-16.0)
--- NOTE | 2022-05-27 09:23 | Obstetrical Progress Note ---
Date of Service May 27, 2022 Assessment & Plan Admission and Anticipated Discharge Date Admission Date: May 25, 2022 Subjective abdomen soft and non tender no calf tenderness ambulating well vaginal bleeding scant hgb 10.5 Results & Data Vital Signs (Past 12 Hours) Vital Signs Temp Pulse Resp BP Pulse Ox O2 Del Method 05/27/22 08:00 36.8 C 100 H 18 137/86 97 Room Air 05/26/22 23:45 36.7 C 81 18 117/81
[2022-05-27] MEDS ORDERED: DEXTROMETHORPHAN POLYMR COMPLX 60 MG/10 ML UDP PO PRN (10:00)
== END 2022-05-27 12:45 | disposition home or self-care (01) | DRG 807 ==
LOC: OPB 11:17 → 4S1 11:19 → 4E2 05-26 01:44

== ENCOUNTER 2022-06-19 13:08 | Inpatient (IN) ==
[2022-06-19] MEDS ORDERED: SODIUM CHLORIDE 0.9% 1000ML 1,000 ML IV ONE (13:23)
[2022-06-19] MEDS ORDERED: SULFA/TRIMETH 80/16MG/ML 320 MG in DEXTROSE 5% 500 ML IV STA (13:27)
[2022-06-19] MEDS ORDERED: SODIUM CHLORIDE 0.9% IV STA (13:29)
[2022-06-19] MEDS ORDERED: MINOCYCLINE HCL IV STA (13:29)
--- NOTE | 2022-06-19 13:51 | Emergency Department Note ---
Impression & Plan Flu-like symptoms, Fever, Bacteremia, Immunocompromised ED Provider Note NAME: CORKY KAUR AGE: 32 SEX: F : 1990 ARRIVES VIA: Walk-In INFORMANT: [Patient] ED PROVIDER(S): [Brayan Rosales MD] CHIEF COMPLAINT: Infection HISTORY OF PRESENT ILLNESS: The patient is a 32-year-old female presents to the ED with positive blood cultures. The patient states that she delivered a baby vaginally about 3 weeks ago. 3 days after the delivery, she developed a fever. She was placed on Augmentin. At that time, her kids had an adenovirus infection and they were uncertain if the fever was from adenovirus or from something else. The patient was feeling well up until about 5 days ago, 3 days after stopping the Augmentin. She began noticing fevers, she vomited once. The fevers would come and go. She was fatigued. She saw her PCP yesterday. Patient states that her PICC line dressing was changed and she spiked a temperature of 104.5. She was referred to the ED by her PCP. She was seen yesterday in the ED. The patient had a negative work-up in the ED yesterday. Her laboratory work was essentially unrevealing. CT of the and pelvis was unremarkable. Chest x-ray was unremarkable. She was discharged home. Today, the patient reports back because of the positive blood culture results. The patient actually feels better today than she did yesterday. She does not feel fatigued or washed out. There is no fever today. The patient has a PICC in the left arm. This has been in place now since January, for about 5 months. It is due to come out in 2 days-at that chantal erazo, she was going to have a port placed. The patient does have Crohn's disease as well as arthritis. She receives Remicade infusions. Of note, the patient states that she had no vaginal discharge or uterine pain. No bleeding. No urinary complaints. PMHx/PSHx: See Below SOCIAL HISTORY: See Below. PHYSICAL EXAM: GENERAL: Patient is in no acute distress. HEENT: No acute trauma, normocephalic atraumatic, mucous membranes moist, no nasal congestion. NECK: No stridor, no adenopathy, no meningismus, trachea is midline. LUNGS: Clear to auscultation bilaterally, no wheeze, no rhonchi, breath sounds equal. HEART: Without murmurs gallops or rubs, regular rate and rhythm. ABDOMEN: Soft, nontender, bowel sounds positive, no peritonitis. EXTREMITIES: No cyanosis or edema, full range of motion of all the joints without pain or difficulty, no signs for acute trauma. PICC line in the left upper extremity. NEUROLOGIC: Oriented x 3, no acute motor or sensory deficits, no focal weakness. SKIN: No rash, no jaundice, no diaphoresis. DIFFERENTIAL DIAGNOSIS: Bacteremia or sepsis, endometritis, line infection, UTI, immunocompromise, among others. EMERGENCY DEPARTMENT COURSE/PROCEDURES: Prior/Outside records reviewed: Recent ED visit. MEDICAL DECISION MAKING: There is no leukocytosis. A mild anemia was seen. There was a normal platelet count. No renal failure or significant electrolyte abnormality. Lactic acid level is not elevated making severe sepsis less likely. No concerning liver enzyme elevation. Procalcitonin level was not elevated. testing was negative. Urinalysis showed what appears to be contamination. COVID test was negative. On exam, patient was not toxic or febrile. Yesterday, the patient's abdominal and pelvis CT was essentially unremarkable. The chest x-ray yesterday was clear. Blood cultures from yesterday have grown stenotrophomonas. This is a type of gram-negative bacilli. As per pharmacy, the patient would benefit from IV antibiotic therapy. Bactrim and minocycline was thought appropriate. An ID consult was placed. I did speak with the patient and case management, the on-call hospitalist was consulted. Currently, the source for the infection is unclear however, her PICC line was thought a likely candidate. DISPOSITION: Patient's presentation and findings warrant a hospital stay. Past Med/Surg History Medical History Anxiety and depression Pristiq 100mg PO daily at HS Asthma only used prior to workout Breast feeding status of mother currently breast feeding C. difficile diarrhea chronic; dx in [facility], no diarrhea currently, and no treatment currently. 8 months ago. Classic migraine hx Crohns disease Difficult intravenous access "pt was told to tell medical providers to call IV team for a midline, instead of trying for a regular IV" - from Appendix. Patient now has a PICC Line Reason for procedure- needs venous access for iron infusions and Remicade therapy Hepatic steatosis History of COVID-19 X 2>LAST TESTED 04/2021 *FEVER, BODY ACHE, SOB *RESOLVED. Last infected with Covid-19 around gi. History of epidural anesthesia Labor epidural 05/25/22= Done at L3-L4 with 1`attempt Inappropriate sinus tachycardia BENIGN PALPITATIONS- LAST VISIT 03/2022 DR DAVIS - DISCHARGED FROM CARDIO- PRN FOLLOW UP Inflammatory arthritis Iron deficiency anemia LAST IRON INFUSION DONE 06/10/22 Raynauds syndrome Surgical History Accessory breast in female LEFT SIDE REMOVED 2014 H/O right knee surgery RIGHT KNEE-2003,2009 History of colonoscopy most recent 02/2021-[facility] History of esophagogastroduodenoscopy (EGD) History of surgery D&E 01/17/19: LMA#4 atraumatic. No postop issues per anesthesia progress note. Hx of appendectomy 08/14/2021 grade 1 view, Long 2, ETT 7. Hx of LASIK Nausea and vomiting after administration of anesthetic agent S/P lobectomy of lung 2013-BENIGN MASS REMOVED RLL S/P PICC central line placement currently in place left upper arm [place] teeth removed Family History Father Hypertension Family history of diabetes mellitus Other No family history of adverse response to anesthesia Social History Smoking Status: Never smoker Second Hand Exposure: No; Do You Dip or Chew Tobacco: No; Hx Alcohol Use: Yes Alcohol type: wine Hx Substance Use: No Preferred Language: French Communication Ability: Effective Fractionating Still Operator Required: No Beliefs That Will Affect Care: None marital status: marital status details: Andrez Kaur Current Living Situation: Spouse How many Children do You have: 4 Other Information That Helps Us Care for You: No Feels Safe at Home: Yes Safety Concerns: Feels Safe At This Time Assistive Devices: None Allergies Allergies Allergy/AdvReac Type Severity Reaction Status Date / Time Egg Derived Allergy Severe Anaphylaxis Verified 06/18/22 18:08 Influenza Virus Vaccines Allergy Severe Anaphylaxis Verified 06/18/22 18:08 chlorhexidine Allergy Intermediate Rash Verified 06/18/22 18:08 Iodinated Contrast Media Allergy Intermediate Hives Verified 06/18/22 18:08 latex Allergy Intermediate Hives Verified 06/18/22 18:08 metronidazole Allergy Intermediate Hives Verified 06/18/22 18:08 Home Meds Home Medications Medication Instructions Recorded Confirmed clonazepam 0.5 mg tablet (Klonopin) 0.25 mg PO HS PRN Anxiety 11/18/18 06/19/22 fexofenadine 180 mg tablet 180 mg PO HS 01/17/19 06/19/22 (Samina Allergy) desvenlafaxine succinate 100 mg 100 mg PO HS 11/06/19 06/19/22 tablet,extended release 24 hr sumatriptan succinate 50 mg tablet 50 mg PO UD PRN Migraine Headache 11/06/19 06/19/22 promethazine 25 mg tablet 25 mg PO Q8H PRN Nausea 04/08/20 06/19/22 sumatriptan succinate 6 mg/0.5 mL 6 mg subcut UD PRN Migraine 04/08/20 06/19/22 subcutaneous pen injector Headache infliximab-axxq 100 mg intravenous 870 mg IV UD 08/01/21 06/19/22 solution (Avsola) albuterol sulfate 90 mcg/actuation 1 puff inhalation QID PRN SHORT OF 08/13/21 06/19/22 aerosol inhaler BREATH cyanocobalamin (vitamin B-12) 1,000 mcg sublingual HS 06/14/22 06/19/22 1,000 mcg sublingual tablet multivitamin 1 tab PO HS 06/14/22 06/19/22 Previous Rx's Medication Instructions Recorded ondansetron HCl 4 mg tablet 4 mg PO Q8H PRN Nausea #20 tabs 08/06/21 Results & Data (ED) Vital Signs Vital Signs - 24 hr 06/19/22 13:18 06/19/22 13:30 06/19/22 13:30 Temperature 36.8 C Temperature Source Temporal Artery Scan Pulse Rate 71 77 Pulse Rate [Apical] 79 Respiratory Rate 18 18 18 Respiratory Effort / Characteristics Non-Labored Respiratory Depth Normal Respiratory Pattern Regular Blood Pressure 114/81 Blood Pressure [Right Arm] 110/67 Blood Pressure Mean 92 Blood Pressure Mean [Right Arm] 81 Pulse Oximetry 97 98 98 Oxygen Delivery Method Room Air Room Air Room Air Sepsis Recent Fever Within 48 Hours No Sepsis New/Unexplained Change in Mental Status No Sepsis Action Taken by Nursing No Action Required Home Medications Current Medication List: was personally reviewed by me Laboratory Data Attestation: I reviewed the patient's lab results. 06/19/22 13:23 06/19/22 13:24 Lab Results 06/19/22 06/19/22 06/19/22 Range/Units 13:23 13:23 13:23 WBC 5.99 (4.8-10.8) K/ul RBC 4.52 (4.20-5.40) M/uL Hgb 11.9 L (12.0-16.0) g/dl Hct 37.5 (37.0-47.0) % MCV 83.0 (80.0-100.0) fL MCH 26.3 (25.0-34.0) pg MCHC 31.7 L (32.0-36.0) g/dL RDW Std Deviation 51.1 H (36.4-46.3) fL RDW Coeff of Ewa 17.4 H (11.5-14.5) % Plt Count 171 (130-400) K/uL MPV 11.4 (9.4-12.4) fL Immature Gran % (Auto) 0.3 % Neut % (Auto) 58.4 % Lymph % (Auto) 30.6 % [place] % (Auto) 10.0 % Eos % (Auto) 0.5 % Baso % (Auto) 0.2 % Neut # (Auto) 3.50 (1.40-6.50) K/uL Lymph # (Auto) 1.83 (1.2-3.4) K/uL [place] # (Auto) 0.60 H (0.11-0.59) K/uL Eos # (Auto) 0.03 (0-0.50) K/uL Baso # (Auto) 0.01 (0-0.2) K/uL Immature Gran # (Auto) 0.02 (0.01-0.20) K/uL Sodium (136-145) mmol/L Potassium (3.5-5.1) mmol/L Chloride (98-107) mmol/L Carbon Dioxide (21-32) mmol/L Anion Gap (3-11) BUN (6-23) mg/dl Creatinine (0.6-1.2) mg/dl Est Cr Clr Drug Dosing ml/min Est GFR ( Amer) ml/min Est GFR (Non-Af Amer) ml/min BUN/Creatinine Ratio (10-20) Glucose (70-99(Fasting)) mg/dl Lactate 2.0 (0.4-2.0) mmol/L Calcium (8.6-10.3) mg/dl Magnesium (1.7-2.4) mg/dl Total Bilirubin (0.2-1.0) mg/dl Direct Bilirubin (0-0.2) mg/dl AST (13-39) U/L ALT (7-52) U/L Alkaline Phosphatase (34-104) U/L Total Protein (6.0-8.3) gm/dl Albumin (3.4-5.0) gm/dl Procalcitonin (0-0.5) ng/ml HCG, Qual Negative (Negative) 06/19/22 06/19/22 Range/Units 13:23 13:24 WBC (4.8-10.8) K/ul RBC (4.20-5.40) M/uL Hgb (12.0-16.0) g/dl Hct (37.0-47.0) % MCV (80.0-100.0) fL MCH (25.0-34.0) pg MCHC (32.0-36.0) g/dL RDW Std Deviation (36.4-46.3) fL RDW Coeff of Ewa (11.5-14.5) % Plt Count (130-400) K/uL MPV (9.4-12.4) fL Immature Gran % (Auto) % Neut % (Auto) % Lymph % (Auto) % [place] % (Auto) % Eos % (Auto) % Baso % (Auto) % Neut # (Auto) (1.40-6.50) K/uL Lymph # (Auto) (1.2-3.4) K/uL [place] # (Auto) (0.11-0.59) K/uL Eos # (Auto) (0-0.50) K/uL Baso # (Auto) (0-0.2) K/uL Immature Gran # (Auto) (0.01-0.20) K/uL Sodium 141 (136-145) mmol/L Potassium 3.5 (3.5-5.1) mmol/L Chloride 110 H (98-107) mmol/L Carbon Dioxide 25 (21-32) mmol/L Anion Gap 6 (3-11) BUN 12 (6-23) mg/dl Creatinine 0.67 (0.6-1.2) mg/dl Est Cr Clr Drug Dosing 149.1 ml/min Est GFR ( Amer) 134.8 ml/min Est GFR (Non-Af Amer) 116.3 ml/min BUN/Creatinine Ratio 17.9 (10-20) Glucose 88 (70-99(Fasting)) mg/dl Lactate (0.4-2.0) mmol/L Calcium 8.3 L (8.6-10.3) mg/dl Magnesium 1.9 (1.7-2.4) mg/dl Total Bilirubin 0.3 (0.2-1.0) mg/dl Direct Bilirubin 0.0 (0-0.2) mg/dl AST 25 (13-39) U/L ALT 42 (7-52) U/L Alkaline Phosphatase 61 (34-104) U/L Total Protein 6.3 (6.0-8.3) gm/dl Albumin 3.5 (3.4-5.0) gm/dl Procalcitonin 0.19 (0-0.5) ng/ml HCG, Qual (Negative) Administered Medications Discontinued Medications Sodium Chloride (Nss 1000ml) 1,000 mls @ 999 mls/hr IV .Q1H1M ONE Stop: 06/19/22 14:23 Last Infusion: 06/19/22 16:44 Dose: 0 mls/hr Documented By: Admin: 06/19/22 15:24 Dose: 999 mls/hr Documented By: SHAHZAD Trimethoprim/Sulfamethoxazole (320 mg/ Dextrose) 520 mls @ 333 mls/hr IV NOW STA Stop: 06/19/22 15:00 Last Infusion: 06/19/22 16:00 Dose: 0 mls/hr Documented By: Admin: 06/19/22 14:09 Dose: 333 mls/hr Documented By: HILARY Minocycline HCl 200 mg/ Sodium (Chloride) 260 mls @ 260 mls/hr IV NOW STA Stop: 06/19/22 14:28 Last Infusion: 06/19/22 15:21 Dose: 0 mls/hr Documented By: Admin: 06/19/22 14:12 Dose: 260 mls/hr Documented By: HILARY Discharge Plan Visit Data Chief Complaint: Infection Stated Complaint: POSITIVE BLOOD CULTURES ED Provider: Brayan Rosales Discharge Problem: Flu-like symptoms, Fever, Bacteremia, Immunocompromised Patient Disposition: Admitted As Inpatient Condition: Good Discharge Instructions Interventions: ED Discharge Assessment Last Done: 06/19/22 16:32
[2022-06-19 14:25] LABS: Basophils # (auto) 0.01 K/uL (0-0.2); Basophils % (auto) 0.2 %; Eosinophils # (auto) 0.03 K/uL (0-0.50); Eosinophils % (auto) 0.5 %; Hematocrit (blood only) 37.5 % (37.0-47.0); Hemoglobin 11.9 g/dl (12.0-16.0); Immature Granulocytes # (auto) 0.02 K/uL (0.01-0.20); Immature Granulocytes % (auto) 0.3 %; Lymphocytes # (auto) 1.83 K/uL (1.2-3.4); Lymphocytes % (auto) 30.6 %; Mean Corpuscular Hemoglobin 26.3 pg (25.0-34.0); Mean Corpuscular Hgb Conc 31.7 g/dL (32.0-36.0); Mean Platelet Volume 11.4 fL (9.4-12.4); Neutrophils % (auto) 58.4 %; Platelet Count 171 K/uL (130-400); RDW Coefficient of Variation 17.4 % (11.5-14.5); RDW Standard Deviation 51.1 fL (36.4-46.3); Red Blood Count 4.52 M/uL (4.20-5.40); White Blood Count 5.99 K/ul (4.8-10.8)
[2022-06-19 14:34] LABS: Albumin Level 3.5 gm/dl (3.4-5.0); BUN Creatinine Ratio 17.9 (10-20); Bilirubin,Total 0.3 mg/dl (0.2-1.0); Calcium 8.3 mg/dl (8.6-10.3); Creatinine Clr Calc Pharmacy 149.1 ml/min; Est GFR (African American) 134.8 ml/min; Est GFR (Non-African American) 116.3 ml/min; Magnesium 1.9 mg/dl (1.7-2.4); Potassium 3.5 mmol/L (3.5-5.1); Total Protein 6.3 gm/dl (6.0-8.3)
[2022-06-19 14:36] LABS: Pregnancy Test, Serum Negative (Negative)
--- NOTE | 2022-06-19 16:09 | History & Physical Report ---
Date of Service June 19, 2022 Assessment & Plan (1) Infection due to Stenotrophomonas maltophilia: (2) Bacteremia: Plan: Admit to [facility] Patient presenting by referral for reevaluation after blood cultures obtained yesterday returned positive for stenotrophomonas maltophilia. Risk factors include that patient is immunocompromised on Remicade and has had a PICC line in place for the past 5 months. Currently hemodynamically stable. Received IV Bactrim and IV minocycline in the ED --continue with both for now until sensitivities result Repeat blood cultures in a.m. ID consult Have ultrasound-guided IV placed and remove PICC line History of recurrent C. difficile, start probiotic (3) Breast feeding status of mother: Plan: ~ 3.5 weeks , currently breast-feeding Discussed with patient need to pump and waste while on antibiotics. (4) Iron deficiency anemia: Plan: History of iron transfusion Hgb stable today 11.9 (5) Anxiety and depression: Plan: Continue Pristiq (6) Crohns disease: Plan: On Remicade, every 6 weeks DVT PROPHYLAXIS SCDs Patient seen in collaboration with Dr. Chambers. I spent a total of 75 minutes coordinating, documenting, and providing care for this patient excluding time spent in the performance of separately billed services. This included personally reviewing all current laboratories and imaging studies, medication reconciliation, outpatient chart review, and discussion with specialists. History of Present Illness Chief Complaint: Positive blood cultures Primary Care Provider: Lissette Robert MD History obtained from patient and review of outpatient PCP records. Patient seen with Dr. Chambers. 32-year-old female with PMH asthma, Raynaud's, Crohn's disease on Remicade, juvenile arthritis, migraines, depression and anxiety, PTSD, recurrent C. difficile, inappropriate sinus tachycardia, poor venous access with current PICC line in place, current state (s/p vaginal delivery on 05/26/2022), and other problems listed below who presents to the ED for reevaluation after blood cultures from ED visit yesterday returned positive for stenotrophomonas maltophilia. Patient reports that the day she returned home from having the baby, she developed a fever. She called her [employer]PERVISOR [employer]ERS who placed her on a course of Augmentin. Patient reports that shortly after finishing the Augmentin, her fevers returned. Yesterday she spiked a temperature of 104.5 and was evaluated in the ED. Work-up was unremarkable. Patient was discharged home. Blood cultures returned positive for stenotrophomonas maltophilia. Patient denies any other symptoms aside from fever. Denies abdominal pain, nausea, vomiting, diarrhea. No shortness of breath, cough, sputum production. Denies urinary symptoms. Is currently breast-feeding, denies breast pain. No rashes. In the ED, patient is afebrile, hemodynamically stable. Labs are unremarkable. Patient was given IV Bactrim, IV minocycline, IVF. Allergies Allergy/AdvReac Type Severity Reaction Status Date / Time Egg Derived Allergy Severe Anaphylaxis Verified 06/18/22 18:08 Influenza Virus Vaccines Allergy Severe Anaphylaxis Verified 06/18/22 18:08 chlorhexidine Allergy Intermediate Rash Verified 06/18/22 18:08 Iodinated Contrast Media Allergy Intermediate Hives Verified 06/18/22 18:08 latex Allergy Intermediate Hives Verified 06/18/22 18:08 metronidazole Allergy Intermediate Hives Verified 06/18/22 18:08 Home Medications Medication Instructions Recorded Confirmed Type clonazepam 0.5 mg tablet (Klonopin) 0.25 mg PO HS PRN Anxiety 11/18/18 06/19/22 History fexofenadine 180 mg tablet 180 mg PO HS 01/17/19 06/19/22 History (Samina Allergy) desvenlafaxine succinate 100 mg 100 mg PO HS 11/06/19 06/19/22 History tablet,extended release 24 hr sumatriptan succinate 50 mg tablet 50 mg PO UD PRN Migraine Headache 11/06/19 06/19/22 History promethazine 25 mg tablet 25 mg PO Q8H PRN Nausea 04/08/20 06/19/22 History sumatriptan succinate 6 mg/0.5 mL 6 mg subcut UD PRN Migraine 04/08/20 06/19/22 History subcutaneous pen injector Headache infliximab-axxq 100 mg intravenous 870 mg IV UD 08/01/21 06/19/22 History solution (Avsola) ondansetron HCl 4 mg tablet 4 mg PO Q8H PRN Nausea #20 tabs 08/06/21 06/19/22 Rx albuterol sulfate 90 mcg/actuation 1 puff inhalation QID PRN SHORT OF 08/13/21 06/19/22 History aerosol inhaler BREATH cyanocobalamin (vitamin B-12) 1,000 mcg sublingual HS 06/14/22 06/19/22 History 1,000 mcg sublingual tablet multivitamin 1 tab PO HS 06/14/22 06/19/22 History Past Med/Surg History Medical History Anxiety and depression Pristiq 100mg PO daily at HS Asthma only used prior to workout Breast feeding status of mother currently breast feeding C. difficile diarrhea chronic; dx in [facility], no diarrhea currently, and no treatment currently. 8 months ago. Classic migraine hx Crohns disease Difficult intravenous access "pt was told to tell medical providers to call IV team for a midline, instead of trying for a regular IV" - from Appendix. Patient now has a PICC Line Reason for procedure- needs venous access for iron infusions and Remicade therapy Hepatic steatosis History of COVID-19 X 2>LAST TESTED 04/2021 *FEVER, BODY ACHE, SOB *RESOLVED. Last infected with Covid-19 around . History of epidural anesthesia Labor epidural 05/25/22= Done at L3-L4 with 1`attempt Inappropriate sinus tachycardia BENIGN PALPITATIONS- LAST VISIT 03/2022 DR DAVIS - DISCHARGED FROM CARDIO- PRN FOLLOW UP Inflammatory arthritis Iron deficiency anemia LAST IRON INFUSION DONE 06/10/22 Raynauds syndrome Surgical History Accessory breast in female LEFT SIDE REMOVED 2014 H/O right knee surgery RIGHT KNEE-2003,2009 History of colonoscopy most recent 02/2021[facility] History of esophagogastroduodenoscopy (EGD) History of surgery D&E 01/17/19: LMA#4 atraumatic. No postop issues per anesthesia progress note. Hx of appendectomy 08/14/2021 grade 1 view, Long 2, ETT 7. Hx of LASIK Nausea and vomiting after administration of anesthetic agent S/P lobectomy of lung 2013-BENIGN MASS REMOVED RLL S/P PICC central line placement currently in place left upper arm [place] teeth removed Family History Father Hypertension Family history of diabetes mellitus Other No family history of adverse response to anesthesia Social History Smoking Status: Never smoker Second Hand Exposure: No; Do You Dip or Chew Tobacco: No; Hx Alcohol Use: Yes Alcohol type: wine Hx Substance Use: No Preferred Language: Greek Communication Ability: Effective Cellular Tower Climber Required: No Beliefs That Will Affect Care: None marital status: marital status details: Andrez Kaur Current Living Situation: Spouse How many Children do You have: 4 Other Information That Helps Us Care for You: No Feels Safe at Home: Yes Safety Concerns: Feels Safe At This Time Assistive Devices: None Review of Systems Review of Systems: ROS per HPI, all other systems reviewed and negative Physical Exam Physical Exam: please refer to Dr. Chambers's addendum for physical exam Results & Data Results & Data Vital Signs (Past 12 Hours) Vital Signs Temp Pulse Pulse Resp BP BP Pulse Ox 06/19/22 15:45 80 16 06/19/22 15:30 63 15 116/76 97 06/19/22 15:23 66 12 109/77 95 06/19/22 14:19 67 06/19/22 13:30 77 18 98 06/19/22 13:30 79 18 110/67 98 06/19/22 13:18 36.8 C 71 18 114/81 97 O2 Del Method 06/19/22 15:45 06/19/22 15:30 Room Air 06/19/22 15:23 Room Air 06/19/22 14:19 06/19/22 13:30 Room Air 06/19/22 13:30 Room Air 06/19/22 13:18 Room Air Laboratory Results Short CBC 06/19/22 Range/Units 13:23 WBC 5.99 (4.8-10.8) K/ul Hgb 11.9 L (12.0-16.0) g/dl Hct 37.5 (37.0-47.0) % Plt Count 171 (130-400) K/uL BMP 06/19/22 13:24 Sodium 141 Potassium 3.5 Chloride 110 H Carbon Dioxide 25 BUN 12 Creatinine 0.67 Glucose 88 Calcium 8.3 L Liver Function 06/19/22 Range/Units 13:24 Total Bilirubin 0.3 (0.2-1.0) mg/dl Direct Bilirubin 0.0 (0-0.2) mg/dl AST 25 (13-39) U/L ALT 42 (7-52) U/L Alkaline Phosphatase 61 (34-104) U/L Albumin 3.5 (3.4-5.0) gm/dl Code Status & VTE Plan VTE Prophylaxis Plan VTE Prophylaxis will be ordered: Yes Supervising Physician Co-Signing Physician Notes Patient seen and examined independently. Discussed with above provider. Patient is a 32-year-old female with past medical history of Crohn's disease on Remicade. She has a PICC line on left arm. She presented with fever yesterday. 2/ blood culture was positive for stenotrophomonas maltophilia on PCR. She was called back to ED. Patient reports fever for several weeks. Plan to remove PICC line. Place ultrasound-guided IV line as patient has history of for vascular access Continue on IV Bactrim and IV minocycline which was started by ED. Sensitivity awaited. ID consult; likely will see on Tuesday Repeat blood culture tomorrow a.m. IV hydration Physical examination; Constitutional: Awake, alert orient x3; not in distress. Respiratory: normal respiratory effort, lungs clear to auscultation, no wheeze, rales, rhonchi. Normal insp/exp effort, no accessory muscle use Cardiovascular: RRR, no murmur, no edema Vessels: no JVD or carotid bruit Chest: normal inspection of chest Abdomen: Soft, nontender. Musculoskeletal: no cyanosis or clubbing, extremities motor strength 5/5. PICC line on left arm; dressing clean dry and intact. Skin: no rashes, warm and dry normal turgor Neurologic: PERRL, EOMI, accommodation nl, no face palsy, no dysarthria CN's II- XI intact bilaterally and moves all extremities Psychiatric: A+Ox3, euthymic affect Lymphatic: no cervical or axillary lymphadenopathy : deferred
[2022-06-19 17:11] LABS: Appearance Urine Clear (Clear); Bacteria Urine Automated Negative (Negative); Bilirubin Urine Negative (Negative); Blood Urine Trace (Negative); Color Urine Yellow; Epithelial Cell Urine Auto >30 /lpf (0-5); Glucose Urine UA Negative (Negative); Ketones Urine Negative (Negative); Leukocyte Esterase Urine 2+ (Negative); Nitrite Urine Negative (Negative); Protein Urine Negative (Negative); RBC Urine Automated 0-4 /hpf (0-4); Specific Gravity Urine 1.016 (1.000-1.030); Urobilinogen Urine Negative (Negative); pH Urine 6.5 (4.5-7.5)
[2022-06-19] MEDS ORDERED: SACCHAROMYCES BOULARDII 250 MG CAP PO SCH (17:43)
[2022-06-19] MEDS ORDERED: DILUENT IV SCH (17:43)
[2022-06-19] MEDS ORDERED: TRIMETH IV SCH (17:43)
[2022-06-19] MEDS ORDERED: SULFA IV SCH (17:43)
[2022-06-19] MEDS ORDERED: SUMAtriptan succinate 50 MG TAB PO PRN (17:43)
[2022-06-19] MEDS ORDERED: ACETAMINOPHEN 325 MG TAB PO PRN (17:43)
[2022-06-19] MEDS: SODIUM CHLORIDE 0.9% 1000ML 1,000 ML IV SCH (18:34)
[2022-06-19] MEDS: FEXOFENADINE HCL 180 MG TAB PO SCH (20:39)
[2022-06-19] MEDS: DESVENLAFAXINE SUCCINATE PO SCH (22:09)
[2022-06-19] MEDS ORDERED: ONDANSETRON INJ 2 MG/ML 2 ML VIAL IV PRN (22:12)
[2022-06-19] MEDS: SULFA/TRIMETH 80/16MG/ML 320 MG in DEXTROSE 5% 500 ML IV SCH (22:14)
[2022-06-20] MEDS: SODIUM CHLORIDE 0.9% IV SCH ×2 (02:58→13:57)
[2022-06-20] MEDS: MINOCYCLINE HCL IV SCH ×2 (02:58→13:57)
[2022-06-20] MEDS ORDERED: ACYCLOVIR 5% OINT 15 GM TUBE EXT PRN (04:37)
[2022-06-20] MEDS: SULFA/TRIMETH 80/16MG/ML 320 MG in DEXTROSE 5% 500 ML IV SCH ×3 (05:43→22:35)
[2022-06-20] MEDS: SODIUM CHLORIDE 0.9% 1000ML 1,000 ML IV SCH ×2 (06:15→16:59)
[2022-06-20 08:02] LABS: Hemoglobin 11.6 g/dl (12.0-16.0); Mean Corpuscular Hemoglobin 26.2 pg (25.0-34.0); Mean Corpuscular Hgb Conc 32.2 g/dL (32.0-36.0); Mean Corpuscular Volume 81.4 fL (80.0-100.0); Mean Platelet Volume 11.2 fL (9.4-12.4); Platelet Count 149 K/uL (130-400); RDW Coefficient of Variation 17.2 % (11.5-14.5); RDW Standard Deviation 50.8 fL (36.4-46.3); Red Blood Count 4.42 M/uL (4.20-5.40); White Blood Count 3.65 K/ul (4.8-10.8)
[2022-06-20 08:18] LABS: BUN Creatinine Ratio 12.8 (10-20); Calcium 7.4 mg/dl (8.6-10.3); Creatinine Clr Calc Pharmacy 129.8 ml/min; Est GFR (African American) 116.6 ml/min; Est GFR (Non-African American) 100.6 ml/min; Potassium 3.6 mmol/L (3.5-5.1)
--- NOTE | 2022-06-20 12:17 | Hospitalist Progress Note ---
Date of Service June 20, 2022 Assessment & Plan (1) Infection due to Stenotrophomonas maltophilia: (2) Bacteremia: Plan: Patient presenting by referral for reevaluation after blood cultures obtained day prior returned positive for stenotrophomonas maltophilia. Risk factors include that patient is immunocompromised on Remicade and has had a PICC line in place for the past 5 months. Reports fever for several weeks Received IV Bactrim and IV minocycline in the ED --continue with both for now until sensitivities result PICC line removed; patient was scheduled for port placement with surgery next week which will need to be rescheduled till she completes antibiotic course. Labs reviewed from today; no leukocytosis present. Repeat blood culture obtained today a.m. Infectious disease to see the patient tomorrow. Continue IV fluids for now. (3) Breast feeding status of mother: Plan: ~ 3.5 weeks , currently breast-feeding Will need discussion with ID regarding resumption of breast-feeding while on antibiotic. (4) Iron deficiency anemia: Plan: History of iron transfusion Hgb stable today 11.6 (5) Anxiety and depression: Plan: Continue Pristiq (6) Crohns disease: Plan: On Remicade, every 6 weeks. Will need port placed after completion of antibiotic course. Follow-up with surgery. Chronic conditions; Migraineas needed sumatriptan and Tylenol. DVT PROPHYLAXIS Lovenox Please note the above document was generated using voice recognition software. It may contain grammatical, syntax or spelling errors. Any formal questions or concerns about the content, text or information contained within the body of this dictation should be directly addressed to the provider for clarification Admission and Anticipated Discharge Date Admission Date: June 19, 2022 Subjective Patient seen and examined at bedside. She is sitting on a chair at the side of the bed eating breakfast. She reports feeling dizzy. Reports headache. Denies fevers and chills overnight. Hemodynamically stable. Review of Systems Review of Systems: All systems reviewed & are unremarkable except as noted in Subjective Physical Exam Physical Exam: Constitutional: WD/WN, vitals as above, NAD, sitting up in bed, pleasant, conversing easily Respiratory: normal respiratory effort, lungs clear to auscultation, no wheeze, rales, rhonchi. Normal insp/exp effort, no accessory muscle use Cardiovascular: RRR, no murmur, no edema Vessels: no JVD or carotid bruit Chest: normal inspection of chest Abdomen: normal bowel sounds, soft, nontender, no hepatosplenomegaly Musculoskeletal: no cyanosis or clubbing, extremities motor strength 5/5. PICC line removed from left arm. Skin: no rashes, warm and dry normal turgor Neurologic: PERRL, EOMI, accommodation nl, no face palsy, no dysarthria CN's II- XI intact bilaterally and moves all extremities Psychiatric: A+Ox3, euthymic affect : deferred Results & Data Results & Data Vital Signs (Past 12 Hours) Vital Signs Temp Pulse Resp BP Pulse Ox O2 Del Method 06/20/22 08:09 36.6 C 75 17 100/66 98 Room Air Laboratory Results Laboratory Results WBC 3.65 K/ul (4.8-10.8) L 06/20/22 07:28 RBC 4.42 M/uL (4.20-5.40) 06/20/22 07:28 Hgb 11.6 g/dl (12.0-16.0) L 06/20/22 07:28 Hct 36.0 % (37.0-47.0) L 06/20/22 07:28 MCV 81.4 fL (80.0-100.0) 06/20/22 07:28 MCH 26.2 pg (25.0-34.0) 06/20/22 07:28 MCHC 32.2 g/dL (32.0-36.0) 06/20/22 07:28 RDW Std Deviation 50.8 fL (36.4-46.3) H 06/20/22 07:28 RDW Coeff of Ewa 17.2 % (11.5-14.5) H 06/20/22 07:28 Plt Count 149 K/uL (130-400) 06/20/22 07:28 MPV 11.2 fL (9.4-12.4) 06/20/22 07: Immature Gran % (Auto) 0.3 % 06/19/22 13: Neut % (Auto) 58.4 % 06/19/22 13: Lymph % (Auto) 30.6 % 06/19/22 13: [place] % (Auto) 10.0 % 06/19/22 13: Eos % (Auto) 0.5 % 06/19/22 13:23 Baso % (Auto) 0.2 % 06/19/22 13:23 Neut # (Auto) 3.50 K/uL (1.40-6.50) 06/19/22 13: Lymph # (Auto) 1.83 K/uL (1.2-3.4) 06/19/22 13:23 [place] # (Auto) 0.60 K/uL (0.11-0.59) H 06/19/22 13:23 Eos # (Auto) 0.03 K/uL (0-0.50) 06/19/22 13:23 Baso # (Auto) 0.01 K/uL (0-0.2) 06/19/22 13: Immature Gran # (Auto) 0.02 K/uL (0.01-0.20) 06/19/22 13:23 Sodium 140 mmol/L (136-145) 06/20/22 07:28 Potassium 3.6 mmol/L (3.5-5.1) 06/20/22 07:28 Chloride 111 mmol/L (98-107) H 06/20/22 07:28 Carbon Dioxide 23 mmol/L (21-32) 06/20/22 07:28 Anion Gap 6 (3-11) 06/20/22 07:28 BUN 10 mg/dl (6-23) 06/20/22 07:28 Creatinine 0.78 mg/dl (0.6-1.2) 06/20/22 07:28 Est Cr Clr Drug Dosing 129.8 ml/min 06/20/22 07:28 Est GFR ( Amer) 116.6 ml/min 06/20/22 07:28 Est GFR (Non-Af Amer) 100.6 ml/min 06/20/22 07:28 BUN/Creatinine Ratio 12.8 (10-20) 06/20/22 07:28 Glucose 95 mg/dl (70-99(Fasting)) 06/20/22 07:28 Lactate 2.0 mmol/L (0.4-2.0) 06/19/22 13:23 Calcium 7.4 mg/dl (8.6-10.3) L 06/20/22 07:28 Magnesium 1.9 mg/dl (1.7-2.4) 06/19/22 13:24 Total Bilirubin 0.3 mg/dl (0.2-1.0) 06/19/22 13:24 Direct Bilirubin 0.0 mg/dl (0-0.2) 06/19/22 13:24 AST 25 U/L (13-39) 06/19/22 13:24 ALT 42 U/L (7-52) 06/19/22 13:24 Alkaline Phosphatase 61 U/L (34-104) 06/19/22 13:24 Total Protein 6.3 gm/dl (6.0-8.3) 06/19/22 13:24 Albumin 3.5 gm/dl (3.4-5.0) 06/19/22 13:24 Procalcitonin 0.19 ng/ml (0-0.5) 06/19/22 13:23 HCG, Qual Negative (Negative) 06/19/22 13:23 Urine Color Yellow 06/19/22 16:49 Urine Appearance Clear (Clear) 06/19/22 16:49 Urine pH 6.5 (4.5-7.5) 06/19/22 16:49 Ur Specific [place] 1.016 (1.000-1.030) 06/19/22 16:49 Urine Protein Negative (Negative) 06/19/22 16:49 Urine Glucose (UA) Negative (Negative) 06/19/22 16:49 Urine Ketones Negative (Negative) 06/19/22 16:49 Urine Blood Trace (Negative) H 06/19/22 16:49 Urine Nitrite Negative (Negative) 06/19/22 16:49 Urine Bilirubin Negative (Negative) 06/19/22 16:49 Urine Urobilinogen Negative (Negative) 06/19/22 16:49 Ur Leukocyte Esterase 2+ (Negative) H 06/19/22 16:49 Urine WBC (Auto) 10-30 /hpf (0-5) H 06/19/22 16:49 Urine RBC (Auto) 0-4 /hpf (0-4) 06/19/22 16:49 U Hyaline Cast (Auto) 1-5 /lpf (0-5) 06/19/22 16:49 U Epithel Cells (Auto) >30 /lpf (0-5) H 06/19/22 16:49 Urine Bacteria (Auto) Negative (Negative) 06/19/22 16:49 SARS-CoV-2, RNA, NAAT NEGATIVE (NEGATIVE) 06/19/22 15:05
[2022-06-20] MEDS: ENOXAPARIN INJ 40 MG/0.4 ML SYR SQ SCH (13:14)
[2022-06-20] MEDS: FEXOFENADINE HCL 180 MG TAB PO SCH (20:40)
[2022-06-20] MEDS: DESVENLAFAXINE SUCCINATE PO SCH (20:40)
[2022-06-20] MEDS: SACCHAROMYCES BOULARDII 250 MG CAP PO SCH (20:41)
[2022-06-20] MEDS: clonazePAM 0.25 MG TAB PO PRN (22:37)
[2022-06-21] MEDS: SODIUM CHLORIDE 0.9% 1000ML 1,000 ML IV SCH ×3 (01:08→21:27)
[2022-06-21] MEDS: SODIUM CHLORIDE 0.9% IV SCH (02:00)
[2022-06-21] MEDS: MINOCYCLINE HCL IV SCH (02:00)
[2022-06-21] MEDS: SULFA/TRIMETH 80/16MG/ML 320 MG in DEXTROSE 5% 500 ML IV SCH (06:17)
[2022-06-21 06:50] LABS: Basophils # (auto) 0.02 K/uL (0-0.2); Basophils % (auto) 0.5 %; Eosinophils # (auto) 0.18 K/uL (0-0.50); Eosinophils % (auto) 4.2 %; Hemoglobin 12.3 g/dl (12.0-16.0); Immature Granulocytes # (auto) 0.01 K/uL (0.01-0.20); Immature Granulocytes % (auto) 0.2 %; Lymphocytes # (auto) 1.56 K/uL (1.2-3.4); Lymphocytes % (auto) 36.2 %; Mean Corpuscular Hemoglobin 26.4 pg (25.0-34.0); Mean Corpuscular Hgb Conc 32.4 g/dL (32.0-36.0); Mean Corpuscular Volume 81.5 fL (80.0-100.0); Mean Platelet Volume 10.7 fL (9.4-12.4); Monocytes # (auto) 0.37 K/uL (0.11-0.59); Monocytes % (auto) 8.6 %; Neutrophils # (auto) 2.17 K/uL (1.40-6.50); Neutrophils % (auto) 50.3 %; Platelet Count 167 K/uL (130-400); RDW Coefficient of Variation 17.7 % (11.5-14.5); RDW Standard Deviation 51.6 fL (36.4-46.3); Red Blood Count 4.66 M/uL (4.20-5.40); White Blood Count 4.31 K/ul (4.8-10.8)
[2022-06-21 07:09] LABS: BUN Creatinine Ratio 12.6 (10-20); Calcium 7.8 mg/dl (8.6-10.3); Creatinine Clr Calc Pharmacy 106.5 ml/min; Est GFR (African American) 91.9 ml/min; Est GFR (Non-African American) 79.3 ml/min
[2022-06-21] MEDS: ENOXAPARIN INJ 40 MG/0.4 ML SYR SQ SCH (08:38)
[2022-06-21] MEDS ORDERED: valACYclovir HCL 500 MG TABLET PO SCH (10:15)
[2022-06-21] MEDS: valACYclovir HCL 500 MG TABLET PO SCH ×2 (12:08→21:28)
--- NOTE | 2022-06-21 14:41 | Hospitalist Progress Note ---
Date of Service June 21, 2022 Assessment & Plan (1) Infection due to Stenotrophomonas maltophilia: (2) Bacteremia: Plan: Patient presenting by referral for reevaluation after blood cultures obtained day prior returned positive for stenotrophomonas maltophilia. Risk factors include that patient is immunocompromised on Remicade and has had a PICC line in place for the past 5 months. Reports fever for several weeks Received IV Bactrim and IV minocycline in the ED Repeat blood culture prior to administration of antibiotics shows growth of gram-negative bacilli again. Repeat blood culture from from 06/20- no growth after 24 hours PICC line removed; patient was scheduled for port placement with surgery next week which will need to be rescheduled till she completes antibiotic course. Discussed with infectious disease (Dr. Horta); recommended to switch over the patient to Bactrim DS twice daily till 06/26/2022 and stop minocycline. Continue on IV fluids for now. (3) Breast feeding status of mother: Plan: ~ 3.5 weeks , currently breast-feeding Avoid breast-feeding while on Bactrim. (4) Herpes labialis: Plan: Valtrex 2000 mg every 12 for today. (5) Iron deficiency anemia: Plan: History of iron transfusion Hgb stable today 11.6 (6) Anxiety and depression: Plan: Continue Pristiq (7) Crohns disease: Plan: On Remicade, every 6 weeks. Will need port placed after completion of antibiotic course. Follow-up with surgery. Chronic conditions; Migraineas needed sumatriptan and Tylenol. DVT PROPHYLAXIS Lovenox Please note the above document was generated using voice recognition software. It may contain grammatical, syntax or spelling errors. Any formal questions or concerns about the content, text or information contained within the body of this dictation should be directly addressed to the provider for clarification Admission and Anticipated Discharge Date Admission Date: June 19, 2022 Subjective Patient seen and examined at bedside. She is sitting at the side of the bed comfortably. She reports that her dizziness has improved compared to yesterday. Has herpes labialis breakthrough. Review of Systems Review of Systems: All systems reviewed & are unremarkable except as noted in Subjective Physical Exam Physical Exam: Constitutional: WD/WN, vitals as above, NAD, sitting up in bed, pleasant, conversing easily Mouth: Has mouth sores with swelling of lower lips Respiratory: normal respiratory effort, lungs clear to auscultation, no wheeze, rales, rhonchi. Normal insp/exp effort, no accessory muscle use Cardiovascular: RRR, no murmur, no edema Vessels: no JVD or carotid bruit Chest: normal inspection of chest Abdomen: normal bowel sounds, soft, nontender, no hepatosplenomegaly Musculoskeletal: no cyanosis or clubbing, extremities motor strength 5/5. PICC line removed from left arm. Skin: no rashes, warm and dry normal turgor Neurologic: PERRL, EOMI, accommodation nl, no face palsy, no dysarthria CN's II- XI intact bilaterally and moves all extremities Psychiatric: A+Ox3, euthymic affect : deferred Results & Data Results & Data Vital Signs (Past 12 Hours) Vital Signs Temp Pulse Resp BP Pulse Ox O2 Del Method 06/21/22 08:24 37.0 C 90 18 126/80 97 Room Air Laboratory Results Laboratory Results WBC 4.31 K/ul (4.8-10.8) L 06/21/22 06:31 RBC 4.66 M/uL (4.20-5.40) 06/21/22 06:31 Hgb 12.3 g/dl (12.0-16.0) 06/21/22 06:31 Hct 38.0 % (37.0-47.0) 06/21/22 06:31 MCV 81.5 fL (80.0-100.0) 06/21/22 06:31 MCH 26.4 pg (25.0-34.0) 06/21/22 06:31 MCHC 32.4 g/dL (32.0-36.0) 06/21/22 06:31 RDW Std Deviation 51.6 fL (36.4-46.3) H 06/21/22 06:31 RDW Coeff of Ewa 17.7 % (11.5-14.5) H 06/21/22 06:31 Plt Count 167 K/uL (130-400) 06/21/22 06:31 MPV 10.7 fL (9.4-12.4) 06/21/22 06:31 Immature Gran % (Auto) 0.2 % 06/21/22 06:31 Neut % (Auto) 50.3 % 06/21/22 06:31 Lymph % (Auto) 36.2 % 06/21/22 06:31 [place] % (Auto) 8.6 % 06/21/22 06:31 Eos % (Auto) 4.2 % 06/21/22 06:31 Baso % (Auto) 0.5 % 06/21/22 06:31 Neut # (Auto) 2.17 K/uL (1.40-6.50) 06/21/22 06:31 Lymph # (Auto) 1.56 K/uL (1.2-3.4) 06/21/22 06:31 [place] # (Auto) 0.37 K/uL (0.11-0.59) 06/21/22 06:31 Eos # (Auto) 0.18 K/uL (0-0.50) 06/21/22 06:31 Baso # (Auto) 0.02 K/uL (0-0.2) 06/21/22 06:31 Immature Gran # (Auto) 0.01 K/uL (0.01-0.20) 06/21/22 06:31 Sodium 139 mmol/L (136-145) 06/21/22 06:31 Potassium 4.0 mmol/L (3.5-5.1) 06/21/22 06:31 Chloride 109 mmol/L (98-107) H 06/21/22 06:31 Carbon Dioxide 24 mmol/L (21-32) 06/21/22 06:31 Anion Gap 6 (3-11) 06/21/22 06:31 BUN 12 mg/dl (6-23) 06/21/22 06:31 Creatinine 0.95 mg/dl (0.6-1.2) 06/21/22 06:31 Est Cr Clr Drug Dosing 106.5 ml/min 06/21/22 06:31 Est GFR ( Amer) 91.9 ml/min 06/21/22 06:31 Est GFR (Non-Af Amer) 79.3 ml/min 06/21/22 06:31 BUN/Creatinine Ratio 12.6 (10-20) 06/21/22 06:31 Glucose 85 mg/dl (70-99(Fasting)) 06/21/22 06:31 Lactate 2.0 mmol/L (0.4-2.0) 06/19/22 13:23 Calcium 7.8 mg/dl (8.6-10.3) L 06/21/22 06:31 Magnesium 1.9 mg/dl (1.7-2.4) 06/19/22 13:24 Total Bilirubin 0.3 mg/dl (0.2-1.0) 06/19/22 13:24 Direct Bilirubin 0.0 mg/dl (0-0.2) 06/19/22 13:24 AST 25 U/L (13-39) 06/19/22 13:24 ALT 42 U/L (7-52) 06/19/22 13:24 Alkaline Phosphatase 61 U/L (34-104) 06/19/22 13:24 Total Protein 6.3 gm/dl (6.0-8.3) 06/19/22 13:24 Albumin 3.5 gm/dl (3.4-5.0) 06/19/22 13:24 Procalcitonin 0.19 ng/ml (0-0.5) 06/19/22 13:23 HCG, Qual Negative (Negative) 06/19/22 13:23 Urine Color Yellow 06/19/22 16:49 Urine Appearance Clear (Clear) 06/19/22 16:49 Urine pH 6.5 (4.5-7.5) 06/19/22 16:49 Ur Specific [place] 1.016 (1.000-1.030) 06/19/22 16:49 Urine Protein Negative (Negative) 06/19/22 16:49 Urine Glucose (UA) Negative (Negative) 06/19/22 16:49 Urine Ketones Negative (Negative) 06/19/22 16:49 Urine Blood Trace (Negative) H 06/19/22 16:49 Urine Nitrite Negative (Negative) 06/19/22 16:49 Urine Bilirubin Negative (Negative) 06/19/22 16:49 Urine Urobilinogen Negative (Negative) 06/19/22 16:49 Ur Leukocyte Esterase 2+ (Negative) H 06/19/22 16:49 Urine WBC (Auto) 10-30 /hpf (0-5) H 06/19/22 16:49 Urine RBC (Auto) 0-4 /hpf (0-4) 06/19/22 16:49 U Hyaline Cast (Auto) 1-5 /lpf (0-5) 06/19/22 16:49 U Epithel Cells (Auto) >30 /lpf (0-5) H 06/19/22 16:49 Urine Bacteria (Auto) Negative (Negative) 06/19/22 16:49 SARS-CoV-2, RNA, NAAT NEGATIVE (NEGATIVE) 06/19/22 15:05
[2022-06-21] MEDS: DESVENLAFAXINE SUCCINATE PO SCH (21:28)
[2022-06-21] MEDS: FEXOFENADINE HCL 180 MG TAB PO SCH (21:29)
[2022-06-21] MEDS: SULFAMETHOXAZOLE/TRIMETHOPRIM DS 800/160MG TAB PO SCH (21:30)
[2022-06-21] MEDS: SACCHAROMYCES BOULARDII 250 MG CAP PO SCH (21:30)
[2022-06-21] MEDS: clonazePAM 0.25 MG TAB PO PRN (21:43)
[2022-06-22] MEDS: ENOXAPARIN INJ 40 MG/0.4 ML SYR SQ SCH (08:10)
[2022-06-22] MEDS: SULFAMETHOXAZOLE/TRIMETHOPRIM DS 800/160MG TAB PO SCH (08:11)
--- NOTE | 2022-06-22 12:13 | Discharge Summary ---
Date of Service June 22, 2022 Admission HPI Per Admitting Provider History obtained from patient and review of outpatient PCP records. Patient seen with Dr. Chambers. 32-year-old female with PMH asthma, Raynaud's, Crohn's disease on Remicade, juvenile arthritis, migraines, depression and anxiety, PTSD, recurrent C. difficile, inappropriate sinus tachycardia, poor venous access with current PICC line in place, current state (s/p vaginal delivery on 05/26/2022), and other problems listed below who presents to the ED for reevaluation after blood cultures from ED visit yesterday returned positive for stenotrophomonas maltophilia. Patient reports that the day she returned home from having the baby, she developed a fever. She called her [employer] who placed her on a course of Augmentin. Patient reports that shortly after finishing the Augmentin, her fevers returned. Yesterday she spiked a temperature of 104.5 and was evaluated in the ED. Work-up was unremarkable. Patient was discharged home. Blood cultures returned positive for stenotrophomonas maltophilia. Patient denies any other symptoms aside from fever. Denies abdominal pain, nausea, vomiting, diarrhea. No shortness of breath, cough, sputum production. Denies urinary symptoms. Is currently breast-feeding, denies breast pain. No rashes. In the ED, patient is afebrile, hemodynamically stable. Labs are unremarkable. Patient was given IV Bactrim, IV minocycline, IVF. Admission Exam Per Admitting Provider Constitutional: Awake, alert orient x3; not in distress. Respiratory: normal respiratory effort, lungs clear to auscultation, no wheeze, rales, rhonchi. Normal insp/exp effort, no accessory muscle use Cardiovascular: RRR, no murmur, no edema Vessels: no JVD or carotid bruit Chest: normal inspection of chest Abdomen: Soft, nontender. Musculoskeletal: no cyanosis or clubbing, extremities motor strength 5/5. PICC line on left arm; dressing clean dry and intact. Skin: no rashes, warm and dry normal turgor Neurologic: PERRL, EOMI, accommodation nl, no face palsy, no dysarthria CN's II- XI intact bilaterally and moves all extremities Psychiatric: A+Ox3, euthymic affect Lymphatic: no cervical or axillary lymphadenopathy : deferred Principal Diagnosis (1) Infection due to Stenotrophomonas maltophilia: (2) Bacteremia: Discharge Exam Constitutional: WD/WN, vitals as above, NAD, sitting up in bed, pleasant, conversing easily Mouth: Has mouth sores with swelling of lower lips Respiratory: normal respiratory effort, lungs clear to auscultation, no wheeze, rales, rhonchi. Normal insp/exp effort, no accessory muscle use Cardiovascular: RRR, no murmur, no edema Vessels: no JVD or carotid bruit Chest: normal inspection of chest Abdomen: normal bowel sounds, soft, nontender, no hepatosplenomegaly Musculoskeletal: no cyanosis or clubbing, extremities motor strength 5/5. PICC line removed from left arm. Skin: no rashes, warm and dry normal turgor Neurologic: PERRL, EOMI, accommodation nl, no face palsy, no dysarthria CN's II- XI intact bilaterally and moves all extremities Psychiatric: A+Ox3, euthymic affect : deferred Discharge Data Allergies Allergy/AdvReac Type Severity Reaction Status Date / Time Egg Derived Allergy Severe Anaphylaxis Verified 06/18/22 18:08 Influenza Virus Vaccines Allergy Severe Anaphylaxis Verified 06/18/22 18:08 chlorhexidine Allergy Intermediate Rash Verified 06/18/22 18:08 Iodinated Contrast Media Allergy Intermediate Hives Verified 06/18/22 18:08 latex Allergy Intermediate Hives Verified 06/18/22 18:08 metronidazole Allergy Intermediate Hives Verified 06/18/22 18:08 Consultations 06/19/22 13:57 ED Decision to Admit Stat 06/19/22 17:43 Consult Infectious Diseases Routine Hospital Course (1) Infection due to Stenotrophomonas maltophilia: (2) Bacteremia: (3) Breast feeding status of mother: (4) Herpes labialis: (5) Iron deficiency anemia: (6) Anxiety and depression: (7) Crohns disease: Patient presenting by referral for reevaluation after blood cultures obtained day prior returned positive for stenotrophomonas maltophilia. Risk factors include that patient is immunocompromised on Remicade and has had a PICC line in place for the past 5 months. Reports fever for several weeks Received IV Bactrim and IV minocycline Repeat blood culture prior to administration of antibiotics shows growth of gram-negative bacilli again. Repeat blood culture from from 06/20- no growth after 48 hours During the hospitalization, PICC line was removed; infectious disease was consulted; discussed with infectious disease (Dr. Horta); recommended to switch over the patient to Bactrim DS twice daily till 06/26/2022 and stop minocycline. Patient was also treated with IV hydration. Also, 2 g twice daily Valtrex was given for herpes labialis as per recommendation by ID. Patient was afebrile throughout her hospitalization. Patient was recommended not to breast-feed while on Bactrim. Patient to follow-up with surgery for placement of port for Remicade infusion. Please note the above document was generated using voice recognition software. It may contain grammatical, syntax or spelling errors. Any formal questions or concerns about the content, text or information contained within the body of this dictation should be directly addressed to the provider for clarification Total Time Total Time Spent Total Time Spent (In Minutes): 40 Total Time Includes: Examination of the Patient, Discharge Planning, Medication Reconciliation, Communication With Other Providers and Other Discharge Plan Discharge Items Patient Disposition: Home - Self-Care Reason For Visit: [place] Discharge Diagnosis: (1) Infection due to Stenotrophomonas maltophilia: (2) Bacteremia Condition on Discharge: Good Activity: Resume your previous activity Non-emergency contact: Primary Care Provider Call non-emergency contact if: you have any medication questions and your symptoms worsen Follow-up/Referrals: Lissette Robert MD [Primary Care Provider] - 06/25/22 11:00 am (Date & Time 06/25/2022 11:00 AM Provider Lissette Robert MD Department [facility] ) Diet: Regular Addtl Attending Provider Instructions: You were admitted to the hospital due to infection due to Stenotrophomonas maltophilia. Infectious disease recommends Bactrim to be taken twice daily till June 26, 2022. Avoid breast-feeding while on Bactrim as it has potential of causing increased bilirubin in infants younger than 2 months. Please follow-up with your primary care doctor. Please reschedule port placement after you have completed antibiotic course. Pending Studies at Discharge: No Stand-Alone Forms: My [employer] (Formerly [employer]), Smoking Cessation Medications and DC Order Prescriptions: New sulfamethoxazole-trimethoprim [Bactrim DS] 800-160 mg Tablet 1 tab PO Q12 5 Days Qty: 10 0RF Continued clonazepam [Klonopin] 0.5 mg Tablet 0.25 mg PO HS PRN (Reason: Anxiety) Patient Comments: hasn't taken in months Rx Instructions: TAKE HALF A TABLET AT BEDTIME sumatriptan succinate 50 mg tablet 50 mg PO UD PRN (Reason: Migraine Headache) Rx Instructions: take at onset of migraine and may repeat in 2 hours if ineffective desvenlafaxine succinate 100 mg tablet extended release 24 hr 100 mg PO HS promethazine 25 mg tablet 25 mg PO Q8H PRN (Reason: Nausea) sumatriptan succinate 6 mg/0.5 mL pen injector 6 mg SUBCUT UD PRN (Reason: Migraine Headache) Rx Instructions: REFER TO PACKAGING FOR DOSING INSTRUCTIONS fexofenadine [Samina Allergy] 180 mg Tablet 180 mg PO HS [place] 100 mg Recon Soln 870 mg IV UD Rx Instructions: q 6 weeks ondansetron HCl 4 mg tablet 4 mg PO Q8H PRN (Reason: Nausea) Qty: 20 0RF multivitamin Tablet 1 tab PO HS cyanocobalamin (vitamin B-12) 1,000 mcg Tablet, Sublingual 1,000 mcg SUBLINGUAL HS albuterol sulfate 90 mcg/actuation Hfa Aerosol Inhaler 1 puff INHALATION QID PRN (Reason: SHORT OF BREATH) Discharge Orders: Discharge Order (Routine); Ordered 06/22/22 Ordered By: Ryan George/Other Patient Handouts: Preventing Deep Vein Thrombosis Admission Data Admit Date/Time: 06/19/22 14:18 Attending Provider: Ryan Chambers Admit Provider: Ryan Chambers Primary Care Provider: Lissette Robert Other Providers: Ryan Chambers ; Jasen Turpin ; Kevin Horta ; Shaun Triana I. ; Franck Donohue II ; Magda Zhang ; Seferino Ricardo ; Jerome Byrd ; Paulino Rodarte Other Interventions: Discharge Summary Assessment (RN) Last Done: 06/22/22 10:51
== END 2022-06-22 11:49 | disposition home or self-care (01) | DRG 872 ==
LOC: ED 13:08 → 3W 14:18